=== PATIENT | male | born 1955 | race African-American/Black ===

== ENCOUNTER 2016-05-09 07:24 | Inpatient (IN) | payer MEDICAID ==
[2016-05-09] MEDS ORDERED: IPRATROPIUM/ALBUTEROL 3 ML DEYVIAL ONE (07:29)
[2016-05-09] MEDS ORDERED: IPRATROPIUM/ALBUTEROL 3 ML DEYVIAL IH ONE (07:33)
--- NOTE | 2016-05-09 07:46 | CPEKG ---
Heart Rate: 106 RR Interval: 566 P-R Interval: 144 QRSD Interval: 86 QT Interval: 348 QTC Interval: 463 P Lincoln: 32 QRS Lincoln: -68 T Wave Lincoln: -83 EKG Severity - ABNORMAL ECG - EKG Impression: SINUS TACHYCARDIA EKG Impression: LEFT ANTERIOR FASCICULAR BLOCK EKG Impression: ANTERIOR INFARCT, AGE INDETERMINATE EKG Impression: ABNORMAL T, CONSIDER ISCHEMIA, INFERIOR LEADS Electronically Signed By: Trini Burgess 09-May-2016 07:51:08
--- NOTE | 2016-05-09 07:54 | EDPHY ---
H & P Stated Complaint: Flu like s/sx, Hypoxia Time Seen by Provider: 05/09/16 07:28 HPI/ROS: CHIEF COMPLAINT: Cough and short of breath HISTORY OF PRESENT ILLNESS: This is a 60-year-old male with a history of hypertension who comes to the emergency room by ambulance from the homeless snf. He is not taking any medications for his hypertension. He has not had an influenza vaccination. He presents with diffuse weakness, productive cough, feeling short of breath, and generalized malaise. He reports right- sided chest pain. He has not been aware of fever. He is a daily smoker. He has not had any left-sided chest pain or pressure. He has no family history of coronary artery disease. REVIEW OF SYSTEMS: A ten point review of systems was performed and is negative with the exception of the items mentioned in the HPI. Source: Patient, EMS Exam Limitations: No limitations - Personal History Current Tetanus/Diphtheria Vaccine: Yes - Medical/Surgical History Hx Asthma: No Hx Chronic Respiratory Disease: No Hx Diabetes: No Hx Cardiac Disease: No Hx Renal Disease: No Hx Cirrhosis: No Hx Alcoholism: No Hx HIV/AIDS: No Hx Splenectomy or Spleen Trauma: No Other PMH: HTN, Rt TKA, Lt patella surgery - Social History Smoking Status: Current every day smoker Alcohol Use: None Drug Use: None, Marijuana Additional Social History: He sting homeless snf. He smokes 1 pack of cigarettes daily. He does not use alcohol or illicit drugs. - Physical Exam Exam: General Appearance: Alert. Vital signs reviewed. Blood pressure 116/59, heart rate 109, temperature 37, respiratory rate 20, and pulse ox 83% on room air. Eyes: Pupils equal and round, no conjunctival injection, no discharge. Anicteric. ENT, Mouth: Mucous membranes are moist, no oropharyngeal erythema or edema. Neck: No lymphadenopathy, supple. Trachea midline. Respiratory: Bilateral wheezes, rhonchi on the right. Cardiovascular: Tachycardic,; no murmur, rub, or gallop. Gastrointestinal: Abdomen is soft and nontender, no masses or organomegaly, bowel sounds normal. Skin: Warm and dry, no rashes on exposed skin, normal color. Back: Nontender to palpation over the thoracolumbar spine. No CVAT. Extremities: No lower extremity edema, no calf tenderness or swelling. Neurological: Alert and oriented. Moving all four extremities easily and equally. Facial expressions symmetric. Tongue midline. Psychiatric: Normal affect. No agitation or anxiety. Constitutional: Initial Vital Signs Temperature (C) 37 C 05/09/16 07:24 Heart Rate 109 H 05/09/16 07:24 Respiratory Rate 20 05/09/16 07:24 Blood Pressure 116/59 L 05/09/16 07:24 O2 Sat (%) 83 L 05/09/16 07:24 O2 Delivery Mode Non-Rebreather Mask O2 (L/minute) 15 Allergies/Adverse Reactions: No Known Allergies Allergy (Unverified 05/09/16 07:29) Home Medications: Medication Instructions Recorded Hydrochlorothiazide [HCTZ (*)] 25 mg PO DAILY 05/09/16 Medical Decision Making ED Course/Re-evaluation: 60-year-old homeless gentleman with a history of tobacco abuse and presumed COPD who presents with productive cough and hypoxia. His pulse ox was 83% on arrival. He has required face mask oxygen at 15 L to maintain oxygenation in the low to mid 90%. He has remained awake and alert during his stay in the emergency department. EKG showed ST elevation in 2 contiguous leads (V2 and V3) with reciprocal changes. He reported right-sided chest pain. This prompted a cardiac alert. However, the overall impression was of pulmonary infection. When his chest x- ray was obtained and showed a multi lobar pneumonia. An echocardiogram was done in the emergency department and he was seen by the credit and collections analyst ready mix truck driver. It was felt that further cardiac intervention was not warranted. Two-view chest x-ray shows multi lobar pneumonia on the right with the most significant infiltrate in the right upper lobe. He was given ceftriaxone and azithromycin in the emergency department. Blood and sputum cultures were obtained. Influenza testing is negative. On arrival he met criteria for sepsis. Initial lactate was 3.1, meeting criteria for severe sepsis. A repeat lactate was performed and was trending downward to 2.8. He received 3 L of normal saline in the emergency department. He does not meet criteria for septic shock. He may require different antibiotic coverage. He is being tested by the admitting hospitalist service for atypical pneumonia. Differential Diagnosis: I considered a differential diagnosis including but not limited to pulmonary infectious process, COPD, asthma, pulmonary embolus and congestive heart failure. - Data Points Laboratory Results: Laboratory Results 05/09/16 07:53 05/09/16 07:53 05/09/16 05/09/16 07:53 07:50 WBC 2.46 L 10^3/uL (3.80-9.50) RBC 4.87 10^6/uL (4.40-6.38) Hgb 15.3 g/dL (13.7-17.5) Hct 45.8 % (40.0-51.0) MCV 94.0 fL (81.5-99.8) MCH 31.4 pg (27.9-34.1) MCHC 33.4 g/dL (32.4-36.7) RDW 13.9 % (11.5-15.2) Plt Count 265 10^3/uL (150-400) MPV 9.3 fL (8.7-11.7) Neut % (Auto) 78.8 H % (39.3-74.2) Lymph % (Auto) 16.3 % (15.0-45.0) [place] % (Auto) 4.1 L % (4.5-13.0) Eos % (Auto) 0.0 L % (0.6-7.6) Baso % (Auto) 0.8 % (0.3-1.7) Nucleat RBC Rel Count 0.0 % (0.0-0.2) Absolute Neuts (auto) 1.94 10^3/uL (1.70-6.50) Absolute Lymphs (auto) 0.40 L 10^3/uL (1.00-3.00) Absolute Monos (auto) 0.10 L 10^3/uL (0.30-0.80) Absolute Eos (auto) 0.00 L 10^3/uL (0.03-0.40) Absolute Basos (auto) 0.02 10^3/uL (0.02-0.10) Absolute Nucleated RBC 0.00 10^3/uL (0-0.01) Immature Gran % 0.0 % (0.0-1.1) Seg Neutrophils % 50 % Band Neutrophils % 31 % Lymphocytes % 14 % Monocytes % 1 % Metamyelocytes % 4 % Immature Gran # 0.00 10^3/uL (0.00-0.10) Absolute Seg Neuts 1.23 L 10^/uL (1.70-6.50) Absolute Band Neuts 0.76 H 10^3/uL (0.00-0.70) Absolute Lymphocytes 0.34 L 10^3/uL (1.00-3.00) Absolute Monocytes 0.02 L 10^3/uL (0.30-0.80) Absolute Metamyelocyte 0.10 H 10^3/mL (0.00-0.00) RBC/WBC/PLT Morphology NORMAL (NORMAL) Platelet Estimate ADEQUATE (ADEQ) VBG Lactic Acid 3.1 H mmol/L (0.7-2.1) Sodium 142 mEq/L (134-144) Potassium 4.0 mEq/L (3.5-5.2) Chloride 110 mEq/L (97-110) Carbon Dioxide 22 mEq/l (22-31) Anion Gap 10 mEq/L (8-16) BUN 17 mg/dL (7-23) Creatinine 0.8 mg/dL (0.7-1.3) Estimated GFR > 60 Glucose 106 H mg/dL (70-100) Calcium 8.7 mg/dL (8.5-10.4) Total Bilirubin 1.1 mg/dL (0.1-1.4) Troponin I < 0.012 ng/mL (0-0.034) Influenza A & B (PCR) NEGATIVE FOR FLU (NEGATIVE) Medications Given: Discontinued Medications Albuterol/Ipratropium (Duoneb) 3 ml IH EDNOW ONE Stop: 05/09/16 07:34 Last Admin: 05/09/16 07:33 Dose: 3 ml Aspirin (Aspirin) 324 mg PO EDNOW ONE Stop: 05/09/16 08:05 Last Admin: 05/09/16 07:58 Dose: 324 mg Sodium Chloride (Ns) 1,000 mls @ 0 mls/hr IV EDNOW ONE PRN Reason: Wide Open Stop: 05/09/16 08:05 Last Admin: 05/09/16 07:55 Dose: 1,000 mls Azithromycin 500 mg/ Dextrose 255 mls @ 255 mls/hr IV EDNOW ONE PRN Reason: Protocol Stop: 05/09/16 09:06 Last Admin: 05/09/16 09:10 Dose: 255 mls Ceftriaxone Sodium/Dextrose (Rocephin 1 Gm (Premix)) 50 mls @ 100 mls/hr IV EDNOW ONE PRN Reason: Protocol Stop: 05/09/16 08:36 Last Admin: 05/09/16 08:20 Dose: 50 mls Sodium Chloride (Ns) 1,000 mls @ 0 mls/hr IV ONCE ONE PRN Reason: Wide Open Stop: 05/09/16 08:08 Last Admin: 05/09/16 08:20 Dose: 1,000 mls Sodium Chloride (Ns *For Sepsis Order Set Only*) 1,769 ml IV EDNOW ONE Stop: 05/09/16 08:30 Last Admin: 05/09/16 09:12 Dose: Not Given Departure - Departure Disposition: [facility] Acute Clinical Impression: Pneumonia Qualifiers: Qualifier Code: (J18.1) Lobar pneumonia, unspecified organism Sepsis Qualifiers: Qualifier Code: (A41.9) Sepsis, unspecified organism Condition: Fair
[2016-05-09] MEDS ORDERED: ASPIRIN 81 MG CHEWABLE TAB ONE (07:56)
[2016-05-09] MEDS ORDERED: LIDOCAINE 1% 30 ML SDV ONE (08:00)
[2016-05-09] MEDS ORDERED: MIDAZOLAM 2 MG/2 ML VIAL ONE (08:01)
[2016-05-09] MEDS ORDERED: VERAPAMIL 5 MG/2 ML VIAL ONE (08:01)
[2016-05-09] MEDS ORDERED: fentaNYL 100 MCG/2 ML INJ ONE (08:01)
[2016-05-09] MEDS ORDERED: HEPARIN 10,000 UNIT/10 ML MDV ONE (08:01)
[2016-05-09] MEDS ORDERED: IOPAMIDOL (ISOVUE-370) 150 ML BTL IV ONE (08:02)
[2016-05-09] MEDS ORDERED: ASPIRIN 81 MG CHEWABLE TAB PO ONE (08:04)
[2016-05-09] MEDS ORDERED: NS 1,000 ML IV ONE ×2 (08:04→08:07)
[2016-05-09] MEDS ORDERED: NITROGLYCERIN 1,500 MCG/15 ML VIAL MISC ONE (08:06)
[2016-05-09] MEDS ORDERED: AZITHROMYCIN IV 500 MG in D5W 250 ML IV ONE (08:07)
[2016-05-09 08:13] LABS: ADD DIFF? NO; ADD MORPH? NO; ADD SCAN? YES; ATYPICAL LYMPHOCYTE FLAG 0 (0-99); FRAGMENT RBC FLAG 20 (0-99); HEMATOCRIT 45.8 % (40.0-51.0); HEMOGLOBIN 15.3 g/dL (13.7-17.5); LIPEMIA HEMOLYSIS FLAG 80 (0-99); MEAN CELL HEMOGLOBIN 31.4 pg (27.9-34.1); MEAN CELL HEMOGLOBIN CONCENTR. 33.4 g/dL (32.4-36.7); MEAN PLATELET VOLUME 9.3 fL (8.7-11.7); PLATELET CLUMPS FLAG 0 (0-99); PLATELET COUNT 265 10^3/uL (150-400); RED BLOOD CELL COUNT 4.87 10^6/uL (4.40-6.38); RED CELL DISTRIBUTION WIDTH 13.9 % (11.5-15.2)
[2016-05-09 08:19] LABS: LEFT SHIFT FLG 300 (0-99)
[2016-05-09 08:25] LABS: ANION GAP 10 mEq/L (8-16); BILIRUBIN,TOTAL 1.1 mg/dL (0.1-1.4); CALCIUM 8.7 mg/dL (8.5-10.4); CARBON DIOXIDE 22 mEq/l (22-31); CHLORIDE 110 mEq/L (97-110); CREATININE 0.8 mg/dL (0.7-1.3); GLOMERULAR FILTRATION RATE > 60; GLUCOSE 106 mg/dL (70-100); SODIUM 142 mEq/L (134-144)
[2016-05-09] MEDS ORDERED: NS 1,000 ML BAG *FOR SEPSIS ORDER SET ONLY IV ONE (08:29)
[2016-05-09 08:36] LABS: TROPONIN I < 0.012 ng/mL (0-0.034)
[2016-05-09 08:48] LABS: SCAN POSITIVE
[2016-05-09 08:53] LABS: PLATELET ESTIMATE ADEQUATE (ADEQ)
--- NOTE | 2016-05-09 08:57 | DX ---
Portable AP Upright Chest May 09, 2016 7:57 a.m. Clinical History: 60-year-old homeless male with tobacco use history, in the ED with shortness of darian ath. Comparison Study: None. Findings: Oxygen tubing is in place. There is dense alveolar consolidation noted above the right sangeeta r fissure involving the right upper lobe; however, there are also areas of alveolar consolidation in the right and left medial lower lung zones, features most compatible with multilobar pneumonia. Under lying neoplasm cannot be excluded, and follow up imaging after appropriate antibiotic therapy is arianna mmended to assure resolution. The cardiac silhouette is normal in size. There is some mild tortuosity of the aorta with atherosclerotic calcification of the aortic knob. There is no pleural effusion or pneumothorax. There are some degenerative features associated with the shoulders, right greater than left. I discussed the above findings with Dr. Trini Burgess at 8:40 a.m. on May 09, 2016. Impression: Multilobar pneumonia, most pronounced in the right upper lobe and to lesser degrees at th e medial lung bases. Clinical correlation and follow up are suggested.
[2016-05-09 09:02] LABS: LACGHOST ORDER
--- NOTE | 2016-05-09 10:46 | ECHO ---
[id number] + + [address] : : [place] [address] : : [phone] + + Adult Echocardiographic Report + --+ :Name: Aneta SWEENEY Date: 05/09/2016 08:37 AM : : Hospital Admission Number: [id number] Location: ER: :: 1955 Gender: Male : :Age: 60 yrs Race: BAA : :Reason For Study: Eval LV Fx : :History: Cardiac Alert : + --+ MMode/2D Measurements & Calculations IVSd: 1.3 cm LVIDd: 4.8 cm FS: 31.6 % Ao root diam: 3.4 cm LVPWd: 1.4 cm LVIDs: 3.3 cm EDV(Teich): 106.1 ml ACS: 1.5 cm ESV(Teich): 43.0 ml EF(Teich): 59.5 % Normal Measurement Values: + + :LVIDd (3.5-5.7cm) IVSd (0.6-1.1cm) LVPWd (0.6-1.1cm) Aortic Root (2.0-3.7cm)Left Atrium (1.5-4.0cm): :LV Vol(d) (76-115ml) LV Vol(s) (29-48ml) Ejec Fraction (50-65%)PV Martin (0.6- 1.2m/s) TV Martin (0.4-1.0m/s) : :MV E Martin (0.8-1.0m/s)MV A Martin (0.3-1.0m/s)LVOT Martin (0.7-1.2m/s) Asc Ao Martin ( 0.9-1.8m/s) : + + Doppler Measurements & Calculations MV E max martin: Ao V2 max: LV V1 max: PA V2 max: 81.4 cm/sec 135.7 cm/sec 90.3 cm/sec 126.2 cm/sec MV A max martin: Ao max PG: LV V1 max PG: PA max P.7 cm/sec 7.4 mmHg 3.3 mmHg 6.4 mmHg MV E/A: 0.84 TR max martin: 357.0 cm/sec TR max P.0 mmHg RAP systole: 5.0 mmHg RVSP(TR): 56.0 mmHg Left Ventricle The left ventricle is normal in size. There is moderate concentric left ventricular hypertrophy. The left ventricular ejection fraction is normal. Ejection Fraction = 60%. No regional wall motion abnormalities noted. Right Ventricle The right ventricle is normal in size and function. Atria The left atrial size is normal. Right atrial size is normal. Mitral Valve The mitral valve is normal in structure and function. There is no evidence of mitral valve prolapse. There is no mitral valve stenosis. There is mild mitral regurgitation. Tricuspid Valve There is mild tricuspid regurgitation. Right ventricular systolic pressure is 56mmHg. There is Doppler evidence for moderate pulmonary hypertension. Aortic Valve The aortic valve is trileaflet. The aortic valve opens well. There is no aortic stenosis. Trace aortic regurgitation. Pulmonic Valve The pulmonic valve is normal in structure and function. There is no pulmonic valvular regurgitation. Great Vessels The aortic root is normal size. Pericardium/Pleural There is no pericardial effusion. Conclusion A complete two-dimensional transthoracic echocardiogram was performed (2D, M-mode, Doppler and color flow Doppler). The left ventricular ejection fraction is normal. Ejection Fraction = 60%. No regional wall motion abnormalities noted. The mitral valve is normal in structure and function. There is mild mitral regurgitation. There is mild tricuspid regurgitation. Right ventricular systolic pressure is 56mmHg. There is Doppler evidence for moderate pulmonary hypertension. The aortic valve is trileaflet. The aortic valve opens well. Trace aortic regurgitation. There is no pericardial effusion. There is moderate concentric left ventricular hypertrophy. Final Reading Physician: Donavan Pedersen signed on 05/09/2016 10:45 AM Ordering Physician: JYOTI CARY Performed By: Abdifatah Tobias, CS
[2016-05-09 10:49] LABS: BASE EXCESS -6.2 mEq/L (-2.5-2.5); BICARBONATE 18 mEq/L (22-26); MEASURED OXYGEN SATURATION 90 % (92-95); PCO2 35 mmHg (34-38); PO2 62 mmHg (65-75); TCO2 19 mEq/L (23-27)
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
[2016-05-09 12:03] LABS: COLOR AMBER; LEUKOCYTE ESTERASE,URINE NEGATIVE (NEGATIVE); NITRITE,URINE NEGATIVE (NEGATIVE)
[2016-05-09 12:12] LABS: MUCUS TRACE /lpf (NONE-1+)
[2016-05-09] MEDS ORDERED: ALBUTEROL 3 ML DEYVIAL IH PRN (13:06)
[2016-05-09] MEDS ORDERED: ACETAMINOPHEN 325 MG TAB PO PRN (13:06)
[2016-05-09] MEDS ORDERED: LORazepam 2 MG/ML INJ IVP PRN (13:06)
[2016-05-09] MEDS: ONDANSETRON DISINTEGRATING 4 MG TAB PO PRN (14:20)
[2016-05-09] MEDS: NS 1,000 ML IV SCH ×2 (14:24→21:23)
--- NOTE | 2016-05-09 14:38 | PDGENHP ---
History and Physical - Chief Complaint sob, cough - History of Present Illness 60 yo M with hx of HTN and homelessness admitted with sob and cough that he says started today. He also had generalized weakness/n/v. He is coughing up thick green sputum. He does not think he has had fever or chills. He has not had similar issues in the past. He has some slight right sided chest pain when he moves mostly. No swelling or pain in his legs. No sick contacts that he is aware of but he lives in a alf so unsure. History Information - Allergies/Home Medication List Allergies/Adverse Reactions: No Known Allergies Allergy (Unverified 05/09/16 07:29) Home Medications: Hydrochlorothiazide [HCTZ (*)] 25 mg PO DAILY 05/09/16 [Last Taken 2 Weeks Ago] I have personally reviewed and updated: family history, medical history, social history, surgical history - Past Medical History hypertension Additional medical history: scoliosis. chronic back pain and neuropathic pain - Surgical History Additional surgical history: TKA. tib fib surgery - Family History Positive for: non-pertinent - Social History Smoking Status: Current every day smoker (40 + pack year smoking hx) Alcohol Use: Rarely Drug Use: Marijuana Additional social history: homeless, staying in alf, has been in [place] 22 months Review of Systems ROS: 10pt was reviewed & negative except for what was stated in HPI & below Physical Exam Temp Pulse Resp BP Pulse Ox 37.2 C 105 H 22 H 106/68 96 05/09/16 10:51 05/09/16 10:51 05/09/16 10:51 05/09/16 10:51 05/09/16 10:51 O2 (L/minute) 15 Constitutional: no apparent distress, appears nourished Eyes: PERRL Ears, Nose, Mouth, Throat: moist mucous membranes, hearing normal Cardiovascular: regular rate and rhythym, no murmur, rub, or gallop, No edema Respiratory: expiratory wheeze, inspiratory crackles, bronchial breath sounds Gastrointestinal: normoactive bowel sounds, soft, non-tender abdomen Genitourinary: no bladder fullness Skin: warm, normal color Musculoskeletal: full muscle strength, no muscle tenderness Neurologic: AAOx3, sensation intact bilaterally Psychiatric: interacting appropriately, not anxious, not encephalopathic Lab Data & Imaging Review 05/09/16 07:53 05/09/16 07:53 WBC 2.46 10^3/uL (3.80-9.50) L 05/09/16 07:53 RBC 4.87 10^6/uL (4.40-6.38) 05/09/16 07:53 Hgb 15.3 g/dL (13.7-17.5) 05/09/16 07:53 Hct 45.8 % (40.0-51.0) 05/09/16 07:53 MCV 94.0 fL (81.5-99.8) 05/09/16 07:53 MCH 31.4 pg (27.9-34.1) 05/09/16 07:53 MCHC 33.4 g/dL (32.4-36.7) 05/09/16 07:53 RDW 13.9 % (11.5-15.2) 05/09/16 07:53 Plt Count 265 10^3/uL (150-400) 05/09/16 07:53 MPV 9.3 fL (8.7-11.7) 05/09/16 07:53 Neut % (Auto) 78.8 % (39.3-74.2) H 05/09/16 07:53 Lymph % (Auto) 16.3 % (15.0-45.0) 05/09/16 07:53 Warren % (Auto) 4.1 % (4.5-13.0) L 05/09/16 07:53 Eos % (Auto) 0.0 % (0.6-7.6) L 05/09/16 07:53 Baso % (Auto) 0.8 % (0.3-1.7) 05/09/16 07:53 Nucleat RBC Rel Count 0.0 % (0.0-0.2) 05/09/16 07:53 Absolute Neuts (auto) 1.94 10^3/uL (1.70-6.50) 05/09/16 07:53 Absolute Lymphs (auto) 0.40 10^3/uL (1.00-3.00) L 05/09/16 07:53 Absolute Monos (auto) 0.10 10^3/uL (0.30-0.80) L 05/09/16 07:53 Absolute Eos (auto) 0.00 10^3/uL (0.03-0.40) L 05/09/16 07:53 Absolute Basos (auto) 0.02 10^3/uL (0.02-0.10) 05/09/16 07:53 Absolute Nucleated RBC 0.00 10^3/uL (0-0.01) 05/09/16 07:53 Immature Gran % 0.0 % (0.0-1.1) 05/09/16 07:53 Seg Neutrophils % 50 % 05/09/16 07:53 Band Neutrophils % 31 % 05/09/16 07:53 Lymphocytes % 14 % 05/09/16 07:53 Monocytes % 1 % 05/09/16 07:53 Metamyelocytes % 4 % 05/09/16 07:53 Immature Gran # 0.00 10^3/uL (0.00-0.10) 05/09/16 07:53 Absolute Seg Neuts 1.23 10^/uL (1.70-6.50) L 05/09/16 07:53 Absolute Band Neuts 0.76 10^3/uL (0.00-0.70) H 05/09/16 07:53 Absolute Lymphocytes 0.34 10^3/uL (1.00-3.00) L 05/09/16 07:53 Absolute Monocytes 0.02 10^3/uL (0.30-0.80) L 05/09/16 07:53 Absolute Metamyelocyte 0.10 10^3/mL (0.00-0.00) H 05/09/16 07:53 RBC/WBC/PLT Morphology NORMAL (NORMAL) 05/09/16 07:53 Platelet Estimate ADEQUATE (ADEQ) 05/09/16 07:53 Puncture Site RIGHT RADIAL 05/09/16 10:37 Patient Temperature 37.0 DEGREES 05/09/16 10:37 pCO2 35 mmHg (34-38) 05/09/16 10:37 pO2 62 mmHg (65-75) L 05/09/16 10:37 Total CO2 19 mEq/L (23-27) L 05/09/16 10:37 ABG pH 7.34 (7.35-7.45) L 05/09/16 10:37 ABG O2 Saturation 90 % (92-95) L 05/09/16 10:37 ABG Base Excess -6.2 mEq/L (-2.5-2.5) L 05/09/16 10:37 VBG Lactic Acid 2.4 mmol/L (0.7-2.1) H 05/09/16 12:10 Total O2 Concentration 12.0 LITERS 05/09/16 10:37 Sodium 142 mEq/L (134-144) 05/09/16 07:53 Potassium 4.0 mEq/L (3.5-5.2) 05/09/16 07:53 Chloride 110 mEq/L (97-110) 05/09/16 07:53 Carbon Dioxide 22 mEq/l (22-31) 05/09/16 07:53 Bicarbonate 18 mEq/L (22-26) L 05/09/16 10:37 Anion Gap 10 mEq/L (8-16) 05/09/16 07:53 BUN 17 mg/dL (7-23) 05/09/16 07:53 Creatinine 0.8 mg/dL (0.7-1.3) 05/09/16 07:53 Estimated GFR > 60 05/09/16 07:53 Glucose 106 mg/dL (70-100) H 05/09/16 07:53 Calcium 8.7 mg/dL (8.5-10.4) 05/09/16 07:53 Total Bilirubin 1.1 mg/dL (0.1-1.4) 05/09/16 07:53 Troponin I < 0.012 ng/mL (0-0.034) 05/09/16 07:53 Urine Color BALDEMAR 05/09/16 11:40 Urine Appearance CLEAR 05/09/16 11:40 Urine pH 5.0 (5.0-7.5) 05/09/16 11:40 Ur Specific [place] 1.027 (1.002-1.030) 05/09/16 11:40 Urine Protein 2+ (NEGATIVE) H 05/09/16 11:40 Urine Ketones TRACE (NEGATIVE) H 05/09/16 11:40 Urine Blood NEGATIVE (NEGATIVE) 05/09/16 11:40 Urine Nitrate NEGATIVE (NEGATIVE) 05/09/16 11:40 Urine Bilirubin POSITIVE (NEGATIVE) H 05/09/16 11:40 Urine Urobilinogen NEGATIVE EU (0.2-1.0) 05/09/16 11:40 Ur Leukocyte Esterase NEGATIVE (NEGATIVE) 05/09/16 11:40 Urine RBC 3-5 /hpf (0-3) H 05/09/16 11:40 Urine WBC 1-3 /hpf (0-3) 05/09/16 11:40 Ur Epithelial Cells TRACE /lpf (NONE-1+) 05/09/16 11:40 Urine Mucus TRACE /lpf (NONE-1+) 05/09/16 11:40 Urine Glucose NEGATIVE (NEGATIVE) 05/09/16 11:40 Influenza A & B (PCR) NEGATIVE FOR FLU (NEGATIVE) 05/09/16 07:50 Visualized and Interpreted Chest x-ray results: Yes Chest X-Ray results: infiltrate (multilobar--right upper and middle lobe pna) Visualized and Interpreted EKG results: Yes EKG additional interpertation: LAFB, ST depression, twi inferior leads Assessment & Plan Assessment: 60 yo homeless man presenting with multilobar pna and acute resp failure # multilobar pna: patient resides in alf but otherwise no rf for resistant organisms, started on ctx/azithro for now. Blood, sputum cxs and legionella/ strep pneumo urinary ags ordered. # acute hypoxic respiratory failure: in the setting of above, 83% on RA on arrival. Tx as above, nebs, IS, ambulation # severe sepsis: with neutropenia, tachycardia and source of infection as above. Lactic acid elevated but downtrending. HD stable. # copd with acute exacerbation: undiagnosed but given 40+ active smoking history and exam clearly contributing, continue scheduled nebs, does have reasonable air mvmt so will hold off on steroids for now # htn: holding hctz given sepsis, monitoring bp # chest pain: with ecg abnormalities as well, cardiology consulted, echo w/o wall motion abnormality. Pain right sided and likely 2/2 pna. Trending trops, monitor on tele # chronic back pain: prn oxy, pt/ot # dispo: IP status, high risk presenting issues Patient new to my care. Old records reviewed and summarized as above. Care plan reviewed with ER doctor including plans for abx.
[2016-05-09] MEDS: PROMETHAZINE HCL 25 MG/ML VIAL IVP PRN (15:15)
[2016-05-09] MEDS: oxyCODONE IR 5 MG TAB PO PRN (16:45)
[2016-05-09] MEDS: IPRATROPIUM/ALBUTEROL 3 ML DEYVIAL IH SCH ×2 (16:45→22:33)
[2016-05-09] MEDS: VANCOMYCIN 750 MG in D5W 150 ML IV SCH (21:23)
[2016-05-10] MEDS: LORazepam 0.5 MG TAB PO PRN (01:18)
[2016-05-10 05:46] LABS: % IMMATURE GRANULYOCYTES 1.2 % (0.0-1.1); ABSOLUTE IMMATURE GRANULOCYTES 0.14 10^3/uL (0.00-0.10); ADD DIFF? NO; ADD MORPH? NO; ADD SCAN? YES; FRAGMENT RBC FLAG 0 (0-99); HEMATOCRIT 41.6 % (40.0-51.0); HEMOGLOBIN 13.5 g/dL (13.7-17.5); LIPEMIA HEMOLYSIS FLAG 80 (0-99); MEAN CELL HEMOGLOBIN CONCENTR. 32.5 g/dL (32.4-36.7); MEAN CELL VOLUME 95.4 fL (81.5-99.8); MEAN PLATELET VOLUME 9.8 fL (8.7-11.7); PLATELET CLUMPS FLAG 0 (0-99); PLATELET COUNT 226 10^3/uL (150-400); RED BLOOD CELL COUNT 4.36 10^6/uL (4.40-6.38); RED CELL DISTRIBUTION WIDTH 14.1 % (11.5-15.2)
[2016-05-10 05:52] LABS: ATYPICAL LYMPHOCYTE FLAG 120 (0-99); LEFT SHIFT FLG 300 (0-99)
[2016-05-10] MEDS: IPRATROPIUM/ALBUTEROL 3 ML DEYVIAL IH SCH ×4 (05:54→22:14)
[2016-05-10 06:05] LABS: ANION GAP 7 mEq/L (8-16); CALCIUM 7.7 mg/dL (8.5-10.4); CARBON DIOXIDE 22 mEq/l (22-31); CHLORIDE 113 mEq/L (97-110); CREATININE 0.7 mg/dL (0.7-1.3); GLOMERULAR FILTRATION RATE > 60; GLUCOSE 58 mg/dL (70-100); POTASSIUM 4.5 mEq/L (3.5-5.2); SODIUM 142 mEq/L (134-144)
[2016-05-10 06:48] LABS: SCAN POSITIVE
[2016-05-10 06:58] LABS: PLATELET ESTIMATE ADEQUATE (ADEQ)
[2016-05-10] MEDS: VANCOMYCIN 750 MG in D5W 150 ML IV SCH (07:50)
[2016-05-10] MEDS: ENOXAPARIN 40 MG/0.4 ML SYR SC SCH (07:50)
[2016-05-10] MEDS: oxyCODONE IR 5 MG TAB PO PRN ×3 (08:01→19:52)
[2016-05-10] MEDS ORDERED: AZITHROMYCIN IV 500 MG in D5W 250 ML IV SCH (09:00)
--- NOTE | 2016-05-10 10:18 | HOSPPROG ---
Hospitalist Progress Note Assessment/Plan: Sepsis secondary to PNA and streptococcal bacteremia - Streptococcal pneumonia in 2/2 BCx's. Currently on 5 LPM O2 by OR. -DC Vanco -Cont Ceftriaxone / Azithromycin -Repeat BCx's 1-2 days -ID consulted -Will need f/u imaging in 4-6 weeks to ensure resolution Acute hypoxemic respiratory failure secondary to above - may have COPD contributing with 40+ pack yr tobacco hx. -cont scheduled nebs -steroids deferred at this time with no wheezing on exam -outpt PFT's once returned to baseline CAD - Based on stated h/o MT in 1992. EKG is abnormal with diffuse T wave inversions though trop neg x2 and pt is CP free at this time. Echo shows preserved LV function and no WMA. Appreciate Cardiology consult. -Will start ASA 81 mg -check lipid status, consider addition of statin -consider addition of BB when BP can tolerate -Plan for outpt risk stratification per cards Hypertension - Normotensive now. Holding HCTZ. Homelessness - Case management consult. DVT PPLX - Lovenox Full code Dispo - cont inpt, transfer to med surg Subjective: Pt feels "crummy". He remains SOB, weak, achey. Denies CP. No fevers. Taking adequate PO. UOP decent. Objective: Vital Signs Temp Pulse Resp BP Pulse Ox 36.7 C 92 25 H 138/79 H 5 L 05/10/16 08:06 05/10/16 08:06 05/10/16 08:06 05/10/16 08:06 05/10/16 08:06 Microbiology 05/09/16 10:05 - Final Sputum, Expectorated Laboratory Results 05/10/16 05:35 05/10/16 05:35 05/09/16 05/10/16 05/11/16 05:59 05:59 05:59 Intake Total 4805 Output Total 875 Balance 3930 - Physical Exam Constitutional: no apparent distress Eyes: PERRL Ears, Nose, Mouth, Throat: moist mucous membranes Cardiovascular: regular rate and rhythym Respiratory: no respiratory distress, reduced air movement, inspiratory crackles Gastrointestinal: normoactive bowel sounds, soft, non-tender abdomen Skin: warm Neurologic: AAOx3 Psychiatric: interacting appropriately ICD10 Worksheet Patient Problems: Problems Problem Status Diagnosed Pneumonia Acute Sepsis Acute
[2016-05-10] MEDS: guaiFENesin 600 MG TAB.ER PO SCH ×2 (11:56→19:34)
[2016-05-10] MEDS ORDERED: ALBUTEROL 3 ML DEYVIAL IH SCH (12:00)
[2016-05-10] MEDS: NS 1,000 ML IV SCH (12:54)
--- NOTE | 2016-05-10 13:00 | DX ---
Portable chest x-ray 1058 hours History: Followup pneumonia. Findings: Comparison to May 09, 2016. There is dense consolidation once again seen inferior aspect right upper lobe as well as patchy areas of consolidation/pneumonia at both lung bases similar to the prior study. There is decreased inspira tion. There are no new areas of consolidation or significant effusion. Heart size remains borderline enlarged. Pulmonary vasculature is not engorged. Moderate atherosclerotic calcification is present at the aortic arch level. Osseous structures are unchanged. Moderate degenerative joint disease is note d about the right glenohumeral joint. Impression: 1. Stable bilateral consolidation/pneumonia most prominent inferior aspect right upper lobe. 2. Decreased inspiration.
--- NOTE | 2016-05-10 13:19 | SOAPPROG ---
SOAP Progress Note Assessment/Plan: Asse 1. Pneumonia 2. Respiratory failure 3. COPD 4. Greater than 100 pack-year smoking history 5. Coronary artery disease to lined up for sick dyslipidemia 7. Hypertension. The patient is very ill and is improving significantly. His blood cultures positive. He is taking his antibiotics and feels like he is stable. He feels quite awful. His troponins are negative. There is nothing to suggest acute coronary syndrome. He is a breath of the active gentleman normally who has significant cardiac risk factors and we will follow him once he leaves the hospital and we will arrange to do a stress test. He will need long-term follow-up. He is new to the area I will be happy to follow him in my clinic. He has very significant coronary artery disease. His EKG is markedly abnormal. However his LV systolic function is preserved. Right now we do not have to do a think further about coronary artery disease S things stand today. If he deteriorates we will move on from there quickly. His pneumonia is being treated. It is certainly wonderful it is doing his will see he is doing with his sepsis. I think he will have a slow recovery. I have answered all his questions. We will follow him with you. There is nothing right now to suggest significant diastolic heart failure. his cardiovascular rhythms are stable. His prognosis however remains guarded given his coronary disease, significant risk factors for coronary disease and his pulmonary compromise at baseline and his significant infection. Plan: 05/10/16 13:15 Subjective: He is feeling very ill today. He has no fever He has chills. He has no chest tightness or jaw pain. No pleuritic chest pain. He is short of breath. He feels profoundly weak. He has no strength. He is taking his medications. He has no nausea or vomiting. No lightheadedness or dizziness No neurologic focal symptoms. He can lie flat in bed without any complaints. Objective: Vital Signs Temp Pulse Resp BP Pulse Ox 36.9 C 92 20 121/72 H 97 05/10/16 11:57 05/10/16 11:57 05/10/16 11:57 05/10/16 11:57 05/10/16 11:57 Microbiology 05/09/16 10:05 - Final Sputum, Expectorated Laboratory Results 05/10/16 05:35 05/10/16 05:35 05/09/16 05/10/16 05/11/16 05:59 05:59 05:59 Intake Total 4805 Output Total 875 Balance 3930 Laboratory Tests 05/09/16 05/09/16 05/09/16 07:53 10:37 11:40 Hct 45.8 Neut % (Auto) 78.8 H Lymph % (Auto) 16.3 Travis % (Auto) 4.1 L Eos % (Auto) 0.0 L Bicarbonate 18 L Glucose 106 H Troponin I < 0.012 Urine Bilirubin POSITIVE H 05/09/16 05/09/16 05/10/16 15:10 20:45 05:35 Hct 41.6 Neut % (Auto) 87.7 H Lymph % (Auto) 6.2 L Travis % (Auto) 4.0 L Eos % (Auto) 0.1 L Bicarbonate Glucose 58 L Troponin I < 0.012 < 0.012 Urine Bilirubin Physical Exam - Physical Exam General Appearance: mild distress Respiratory: decreased breath sounds, rhonchi, prolonged expiration, No wheezing Cardiac/Chest: regular rate, rhythm, systolic murmur, No edema Abdomen: normal bowel sounds, non-tender, soft, No organomegaly Skin: normal color, warm/dry Extremities: non-tender, No swelling Neuro/Psych: alert, normal mood/affect, No disoriented to person, No disoriented to place, No disoriented to time, No depressed affect ICD10 Worksheet Patient Problems: Problems Problem Status Diagnosed Pneumonia Acute Sepsis Acute
[2016-05-10] MEDS: D5W 1/2 NS 1,000 ML IV SCH (18:15)
--- NOTE | 2016-05-10 19:18 | GCON ---
[f rep st] CONSULTATION INFECTIOUS DISEASES CONSULTATION DATE OF CONSULTATION: 05/10/2016 REFERRING PHYSICIAN: Jaimie Olson MD REASON FOR CONSULTATION: Sepsis associated with pneumococcal bacteremia. HISTORY OF PRESENT ILLNESS: Patient is a 60-year-old homeless male who smokes 1 pack per day, whom I am asked to see in consultation for sepsis due to pneumococcal bacteremia and pneumonia. The patien t describes developing weakness and severe cough, which was associated with posttussive emesis on the day of admission. He describes having some chills, but no rigors or fever. He subsequently began t o produce sputum, which was green in color. This later has become blood-tinged. He also developed r ight-sided pleuritic chest pain with radiation to the right shoulder. He describes having pneumonia many years ago and has had prior pneumococcal vaccination, although he is unclear when this was admin istered. Evaluation at [facility] revealed a white blood cell count at the time of adm ission of 2.5 with significant bandemia. His lactic acid was also elevated. Chest x-ray revealed d ense consolidation in the inferior aspect of the right upper lobe, in addition to patchy areas of con solidation at both lung bases. Blood cultures obtained at the time of admission are showing both set s with growth of Streptococcus pneumoniae. A sputum sample has shown a mixed gram-stain and mixed or al [place] on culture. Patient has been receiving treatment with vancomycin, ceftriaxone, and azithrom ycin. He feels clinically improved since admission. Flu testing by PCR was negative. Given the abo ve findings, I am now asked to assist in his ongoing management. PAST MEDICAL HISTORY: Hypertension, chronic back pain with radiculopathy. PAST SURGICAL HISTORY: Total knee arthroplasty on the right, history of patella removal on the left. CURRENT MEDICATIONS: Ceftriaxone 1 g IV daily, azithromycin 500 mg IV daily, albuterol nebs as neede d, DuoNeb q.i.d., aspirin 81 mg p.o. daily, Lovenox 40 mg subcu daily, Mucinex 1200 mg p.o. b.i.d. ALLERGIES: No known drug allergies. SOCIAL HISTORY: Patient smokes 1 pack per day. He denies alcohol or drug use. Denies any current H IV risk factors, but notes there may have been some previously in his past. He is currently homeless over last 2 months and staying at the custodial. He says he has an up to date TB card. FAMILY HISTORY: Diabetes mellitus. REVIEW OF SYSTEMS: Outside that noted in the HPI, the remainder of a 10 system review is unremarkabl e. PHYSICAL EXAMINATION: VITAL SIGNS: Temperature 37.3, heart rate 99, respiratory rate 23, blood press ure 123/66, oxygen saturation 100% on 5 L. GENERAL: Patient is a thin male, in no acute distress. He appears nontoxic. HEENT: There is no scleral icterus, conjunctival injection, or conjunctiva pet echiae. Oropharynx is clear without lesions. Mucous membranes are moist. Dentition is in poor repa ir. There is no tenderness over the frontal, maxillary, or mastoid area. There is no nasal discharg e. NECK: Supple without lymphadenopathy or palpable thyromegaly. CHEST: There are coarse crackles present in the right lower and mid lung garibay, as well as the left base. The respiratory effort is normal. CARDIOVASCULAR: Tachycardic without murmurs, gallops, or rubs. ABDOMEN: Soft, nontender, nondistended. There is no palpable organomegaly. Bowel sounds are present. MUSCULOSKELETAL: Ther e is no cyanosis, clubbing, or edema. Right knee shows no erythema, warmth, or effusion. SKIN: No rash is noted. There are no stigmata of endocarditis. The skin is warm and dry to touch. NEUROLOGI C: Patient is alert and interacts appropriately with examiner. Cranial nerves 2-[address] Sensation is grossly intact. LABORATORY DATA: White blood cell count at time of admission 2.5 with 50% neutrophils and 31% bands. White blood cell count today 11.7, hematocrit 41.6, platelets 226, neutrophils 34%, bands 39%. Ser um creatinine is 0.7. Venous lactate 1.2, Flu PCR is negative. Urine Legionella and Streptococcus p neumoniae antigens pending. Urinalysis shows 2+ protein with 3-5 red blood cells and 1-3 white blood cells. Blood cultures with 2 of 2 sets showing Streptococcus pneumoniae with susceptibility pending . Sputum with mixed oral [place]. IMAGING: Chest x-ray reviewed and interpreted by me, and outlined in the HPI. IMPRESSION: Sepsis, due to pneumococcal bacteremia and multilobar pneumonia: Patient has a signific ant smoking history and continues to smoke 1 pack per day, which is a risk factor for invasive pneumo coccal disease. He is currently receiving antibiotic therapy with ceftriaxone and azithromycin. Giv en the isolation of Streptococcus pneumoniae, will discontinue azithromycin and continue with ceftria xone monotherapy as this has a high likelihood of being efficacious with resistance rates to ceftriax one extremely low. Will check HIV antibody. Repeat blood cultures to assess for clearing of bactere olivia. RECOMMENDATIONS: 1. Continue ceftriaxone 1 g IV daily. 2. Discontinue azithromycin. 3. Check HIV antibody. 4. Repeat blood cultures in a.m. 5. Follow clinical response and pneumococcal susceptibilities as available. Thank you for this consultation. We will continue to follow patient with you. /[id number]/MODL
[2016-05-10] MEDS: ONDANSETRON DISINTEGRATING 4 MG TAB PO PRN (21:09)
[2016-05-10] MEDS: ZOLPIDEM TARTRATE 5 MG TAB PO PRN (22:54)
--- NOTE | 2016-05-11 04:09 | GCON ---
[f rep st] CONSULTATION PULMONARY CONSULTATION REASON FOR CONSULTATION: Multi lobar pneumococcal pneumonia. HISTORY: The patient is a 60-year-old gentleman who is homeless. He has been sick for several days with increasing cough and shortness of breath. He presented to the emergency department with increas ed weakness and chest pain. He has purulent mucus. Chest x-ray showed a dense right upper lobe pneu monia with some patchy infiltrates in the right lower lobe and on the left that were much less signif icant. Blood cultures are positive for gram-positive cocci, probably pneumococcus. White blood cell count on admission was 2.46. Today, it has gone up to 11,000. He was mildly acidemic on admission with a borderline elevated lactate at approximately 3. The patient is a long-time smoker, over a pac k a day for greater than 40 years. He was placed in the intensive care unit on step-down status. He is on azithromycin and ceftriaxone, as well as duo nebs 4 times daily. He is on pain medications, e noxaparin, guaifenesin, and p.r.n. medications. He has been seen by Cardiology. No acute coronary s yndrome is identified. DRUG ALLERGIES: None known. 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 Afsaneh ferro is on no oxygen, no inhalers. SOCIAL HISTORY: He was previously . Family live elsewhere. He denies having children or fam linda support system at this point in time. He does not drink alcohol or use drugs. Tobacco was as no elvie above. FAMILY HISTORY: Noncontributory/negative. REVIEW OF SYSTEMS: He feels poorly, wiped out, chest pain has improved. It has been pleuritic in na ture. He states he also has chronic back pain. He was to have an appointment this upcoming week at the Clinic. He is relatively new to the [place] area, from [place] by report. PHYSICAL EXAMINATION: GENERAL: Reveals a fairly thin gentleman in no acute distress. VITAL SIGNS: Blood pressure is 123/66, heart rate 100 with sinus rhythm on the monitor, respiratory rate is appro ximately 20, on 5 L saturations are 100%. He is currently afebrile and has been so since admission. HEENT: Remarkable for poor dentition. There is no lymphadenopathy or thyromegaly, no jugular venou s distention. CHEST: Reveals coarse breath sounds with bronchial changes and some rales on the righ t side. Breath sounds are diminished bilaterally. Expiratory phase is prolonged. There are some ex piratory wheezes. CARDIAC: Heart is tachycardic. There is a soft systolic murmur. There are no ga llops. P2 appears to be increased. ABDOMEN: Soft, nontender. Bowel sounds are present, but dimini shed. LEFT LOWER EXTREMITY: Remarkable for chronic arthritic changes of the left knee, some muscle wasting, and some left lower extremity edema with chronic skin changes. RIGHT LOWER EXTREMITY: Rela tively normal. NEUROLOGIC: Examination is nonfocal, intact. Cognition is appropriate. DATABASE: Chest x-ray is as outlined above. Followup chest x-ray done today is similar without sign ificant major change. White blood cell count 11,600, hematocrit 41. Platelets are normal. Arterial blood gas last night showed a pH of 7.34, pCO2 35, and a PO2 of 62 with a serum bicarbonate of 19 an d a positive base excess. Sodium is 142, potassium 4.5, chloride 109, CO2 22, BUN 18 with creatinine 0.7. Glucose is 82, calcium 7.7. Troponins are negative. Urinalysis on admission was negative. P CR for influenza was negative. Blood cultures are positive for strep pneumoniae. Sensitivities are pending. ASSESSMENT: 1. Multi lobar bacteremic pneumococcal pneumonia. This was initially associated with a low white bl ood cell count, which has now resolved. The patient is modestly hypoxemic, has some associated pleur isy, which is improving, and is doing acceptably at this point in time. Sensitivities are pending. Although he presents with several poor prognostic signs regarding pneumococcal pneumonia, he is doing well currently and hopefully this course will continue. 2. History of tobacco abuse with probable moderate chronic obstructive pulmonary disease. He is on bronchodilator therapy. There is no definite indication for steroids at this time. Further characte rization of his chronic obstructive pulmonary disease, if needed, can be done as an outpatient. 3. History of chronic pain related to his back and chronic changes of the left lower extremity. RECOMMENDATIONS: The patient will be kept in the intensive care unit for now on step-down status. I f he is doing well, he could possibly be moved to a medical-surgical bed elsewhere in the hospital to [place]. Antibiotics and bronchodilator therapy will be continued. Intravenous fluids will be given. Appropriate pain control will be maintained. Chest x-ray and laboratory will be followed. Further plans and recommendations will be made based on his progress over the next 12-24 hours. /[id number]/MODL
[2016-05-11 04:46] LABS: ANION GAP 9 mEq/L (8-16); CALCIUM 7.8 mg/dL (8.5-10.4); CARBON DIOXIDE 21 mEq/l (22-31); CHLORIDE 109 mEq/L (97-110); CHOLESTEROL 90 mg/dL (140-220); CREATININE 0.7 mg/dL (0.7-1.3); GLOMERULAR FILTRATION RATE > 60; GLUCOSE 122 mg/dL (70-100); HIGH DENSITY LIPOPROTEIN 29 mg/dL (40-65); LDL/HDL RATIO 1.45 RATIO (1.00-3.64); LOW DENSITY LIPOPROTEIN 42 mg/dL (80-100); NON-HIGH DENSITY LIPOPROTEIN 61 mg/dL (90-129); SODIUM 139 mEq/L (134-144); TRIGLYCERIDE 96 mg/dL (40-150); VERY LOW DENSITY LIPOPROTEINS 19 mg/dL (8-25)
[2016-05-11 05:31] LABS: ADD MORPH? NO; ADD SCAN? YES; ATYPICAL LYMPHOCYTE FLAG 0 (0-99); FRAGMENT RBC FLAG 0 (0-99); LIPEMIA HEMOLYSIS FLAG 80 (0-99); PLATELET COUNT 193 10^3/uL (150-400)
[2016-05-11 05:35] LABS: HEMATOCRIT 31.5 % (40.0-51.0); HEMOGLOBIN 10.4 g/dL (13.7-17.5); MEAN CELL HEMOGLOBIN 31.6 pg (27.9-34.1); MEAN CELL VOLUME 95.7 fL (81.5-99.8); MEAN PLATELET VOLUME 10.5 fL (8.7-11.7); PLATELET CLUMPS FLAG 0 (0-99); RED BLOOD CELL COUNT 3.29 10^6/uL (4.40-6.38); RED CELL DISTRIBUTION WIDTH 14.2 % (11.5-15.2)
[2016-05-11 05:36] LABS: LEFT SHIFT FLG 300 (0-99)
[2016-05-11 06:00] LABS: ADD DIFF? YES; SCAN POSITIVE
[2016-05-11 06:05] LABS: PLATELET ESTIMATE ADEQUATE (ADEQ); TOXIC GRANULATION PRESENT; TOXIC VACUOLIZATION PRESENT
[2016-05-11] MEDS: IPRATROPIUM/ALBUTEROL 3 ML DEYVIAL IH SCH ×4 (06:18→21:41)
[2016-05-11] MEDS: ONDANSETRON DISINTEGRATING 4 MG TAB PO PRN (06:50)
[2016-05-11] MEDS: guaiFENesin 600 MG TAB.ER PO SCH ×2 (08:08→19:31)
[2016-05-11] MEDS: ASPIRIN EC 81 MG TAB PO SCH (08:08)
[2016-05-11] MEDS: ENOXAPARIN 40 MG/0.4 ML SYR SC SCH (08:08)
--- NOTE | 2016-05-11 08:16 | DX ---
Single View of the Chest May 11, 2016 Clinical Indication: Follow up pneumonia. Comparison: October 08, 2016 Findings: Diffuse consolidation, worse in the right upper lobe, is stable to slightly worse compared to one day prior. There is some increased blunting of the costophrenic angle on the right. The left c ostophrenic angle remains clear. The aortic arch calcification is again present. Heart size is normal . Degenerative changes of the right shoulder are again noted. Impression: Minimally increase in the bilateral pneumonias worse in the right upper lobe. Mild blunt ing of the costophrenic angle suggests a small effusion on today's examination.
[2016-05-11] MEDS: PROMETHAZINE HCL 25 MG/ML VIAL IVP PRN (08:38)
[2016-05-11] MEDS: oxyCODONE IR 5 MG TAB PO PRN ×2 (08:38→17:12)
--- NOTE | 2016-05-11 10:43 | HOSPPROG ---
Hospitalist Progress Note Assessment/Plan: DIAGNOSIS: # ACUTE HYPOXEMIC RESP FAILURE # ACUTE SEPSIS # MULTILOBAR PNEUMOCOCCAL PNEUMONIA # COPD WITH EXACERBATION # HOMELESSNESS PLANS: -continue current antibiotics and respiratory supportive care -bronchodilators -Pneumovax -attempt to increase physical activity today I reviewed the patient's condition and care in detail today with Dr. Uriel Castro. Patient also seen on multidisciplinary rounds SUBJECTIVE: -still with shortness of breath -some chest discomfort OBJECTIVE Vitals reviewed: Remains fairly tachypneic on oxygen, otherwise stable without fever nuclear monitoring technician, reviewed by me: Sinus rhythm Exam: alert oriented skin warm dry color ok resps not labored lungs diffuse bilateral rhonchi heart regular abd soft nondistended nontender, bowel sounds present limbs warm, no edema iv site ok Laboratory data: White blood cell count now to 16,000 otherwise stable Chest x-ray today, my personal interpretation of the images: Some progression and bilateral infiltrates today, still predominant right upper lobe Objective: Vital Signs Temp Pulse Resp BP Pulse Ox 37.1 C 90 26 H 146/71 H 96 05/11/16 07:47 05/11/16 07:47 05/11/16 07:47 05/11/16 07:47 05/11/16 07:47 Microbiology 05/09/16 10:05 - Final Sputum, Expectorated Laboratory Results 05/11/16 04:40 05/11/16 04:15 05/10/16 05/11/16 05/12/16 06:59 06:59 06:59 Intake Total 3267 4581 Output Total 875 375 Balance 3930 3494 ICD10 Worksheet Patient Problems: Problems Problem Status Diagnosed Pneumonia Acute Sepsis Acute
--- NOTE | 2016-05-11 12:25 | PDINTPN ---
Clinical Esthetician Progress Note Assessment/Plan: Assessment: Multi lobar pneumococcal pneumonia. Chest x-rays involving. Component of volume overload may be present as well at this point. Input is I had by almost 7 L compared to admission. On ceftriaxone. Organism is taylor-sensitive. COPD: He likely has at least moderate disease. He continues to smoke. Not interested in stopping. On bronchodilator therapy. I will add inhaled steroids. Oxygen needs stable. DVT prophylaxis: On enoxaparin. Anemia: Hematocrit 31. No evidence of bleeding. Likely related to volume status and chronic disease. GI prophylaxis: Eating. Metabolic: No significant issues identified. Homelessness Plan: Antibiotics and bronchopulmonary therapies will be continued. Chest x- ray can be followed intermittently. Lasix will be given today. Inhaled budesonide will be added to his regimen. Continued hospitalization with close followup is indicated. Subjective: Still feels weak, not well. Coughing but not bringing up much mucus. Denies Chest pain. Objective: Vital Signs Temp Pulse Resp BP Pulse Ox 37.1 C 94 22 H 146/71 H 94 05/11/16 07:47 05/11/16 11:02 05/11/16 11:02 05/11/16 07:47 05/11/16 11:02 Microbiology 05/09/16 10:05 - Final Sputum, Expectorated Laboratory Results 05/11/16 04:40 05/11/16 04:15 05/10/16 05/11/16 05/12/16 05:59 05:59 05:59 Intake Total 4805 3869 Output Total 875 375 Balance 3930 3494 Laboratory Tests 05/11/16 04:15 Calcium 7.8 L CXR: Infiltrates, greatest in the right upper lobe, are more extensive with some hypoventilatory changes present. A component of volume overload, be excluded. Physical Exam - Physical Exam General Appearance: thin, other (Somewhat somnolent, arousable. No acute distress.) EENT: other (Nasal cannula at 5 L, no change. Saturations 94%.) Neck: normal inspection (No jugular venous distension) Respiratory: decreased breath sounds (Bilaterally), rales (Present bilaterally, right greater than left, with consolidative changes on the right.), rhonchi ( Centrally with cough), wheezing (Some expiratory wheezes present), No lungs clear, No normal breath sounds Cardiac/Chest: regular rate, rhythm (Distant heart tones, soft systolic murmur, probable increased P2) Abdomen: normal bowel sounds, non-tender, soft Skin: normal color, warm/dry Lymphatic: no adenopathy Extremities: pedal edema (Trace) Neuro/Psych: no motor/sensory deficits (Moves all extremities), No cognition abnormalities ICD10 Worksheet Patient Problems: Problems Problem Status Diagnosed Pneumonia Acute Sepsis Acute
[2016-05-11] MEDS ORDERED: FUROSEMIDE 20 MG/2 ML VIAL IVP ONE (12:33)
--- NOTE | 2016-05-11 13:37 | SOAPPROG ---
SOAP Progress Note Assessment/Plan: Asse 1. Pneumonia 2. Respiratory failure 3. COPD 4. Greater than 100 pack-year smoking history 5. Coronary artery disease 7. Hypertension.. Plan: 05/10/16 13:15 05/11/16 13:50 1. Pneumonia 2. Respiratory failure 3. COPD 4. Greater than 100 pack-year smoking history 5. Coronary artery disease 6. Hypertension He feels worse today. His chest x-ray does not look improved and may be worse. He is tired He feels very weak Tells me is not having fever chills. He is not having any chest tightness jaw pain arm pain. He has not developed any edema. He is still able to lie flat. Overall from a cardiovascular point of view I feel he is stable. We do not need to do any acute cardiac interventions at this time. Very concerned about the quality of his breathing and the status of his infection. And there remains an issue to think about whether not he may in fact have some neoplastic process contributing to his problems. For now he is to currently stable if not improving. I have answered all his questions. I have spent some time in talking with him. We will follow him with you. There is no acute congestive heart failure at this point in time. Subjective: He feels worse today. He is very weak. He has more shortness of breath. He is not having chest pain. He has no nausea or vomiting. He has no new rashes. He has knee no other issues right now. He is not lightheaded or dizzy. He has no jaw pain arm pain. He has no pleuritic pain. Objective: Vital Signs Temp Pulse Resp BP Pulse Ox 37.1 C 94 22 H 146/71 H 94 05/11/16 07:47 05/11/16 11:02 05/11/16 11:02 05/11/16 07:47 05/11/16 11:02 Microbiology 05/09/16 10:05 - Final Sputum, Expectorated Laboratory Results 05/11/16 04:40 05/11/16 04:15 05/10/16 05/11/16 05/12/16 05:59 05:59 05:59 Intake Total 7265 3599 Output Total 875 375 Balance 3930 2974 Laboratory Tests 05/09/16 05/09/16 05/09/16 07:53 15:10 20:45 WBC Hct 45.8 Glucose Troponin I < 0.012 < 0.012 Cholesterol Non-HDL Cholesterol HDL Cholesterol 05/10/16 05/11/16 05/11/16 05:35 04:15 04:40 WBC 16.14 H Hct 41.6 31.5 L D Glucose 58 L 122 H Troponin I Cholesterol 90 L Non-HDL Cholesterol 61 L HDL Cholesterol 29 L Physical Exam - Physical Exam General Appearance: alert, no apparent distress Neck: non-tender, supple Respiratory: decreased breath sounds, rhonchi, prolonged expiration Cardiac/Chest: regular rate, rhythm, systolic murmur (ssmllsb) Abdomen: non-tender, soft, No organomegaly Skin: warm/dry, pallor Extremities: non-tender, No pedal edema, No calf tenderness Neuro/Psych: alert, oriented x 3 ICD10 Worksheet Patient Problems: Problems Problem Status Diagnosed Pneumonia Acute Sepsis Acute
--- NOTE | 2016-05-11 13:39 | PCMIDPN ---
Assessment/Plan: Assessment/Plan: * Sepsis due to Streptococcus pneumoniae bacteremia associated with multilobar pneumonia: More dyspneic this a.m.. Chest x-ray with slightly more prominent infiltrates. Streptococcus pneumoniae is penicillin susceptible. Will change ceftriaxone to penicillin 4 million units IV q.6 hours. Pulmonology note reviewed with plans for adjunct of diuresis and inhaled steroids. Repeat blood cultures are pending to assess for clearing of bacteremia. HIV antibody is negative. Follow chest x-ray over time to ensure does not evolve parapneumonic effusion. 05/11/16 13:35 05/11/16 13:37 Subjective: Patient complains of feeling terrible. Feels feverish and is short of breath. Objective: Vital Signs Temp Pulse Resp BP Pulse Ox 37.1 C 94 22 H 146/71 H 94 05/11/16 07:47 05/11/16 11:02 05/11/16 11:02 05/11/16 07:47 05/11/16 11:02 Microbiology 05/09/16 10:05 - Final Sputum, Expectorated Laboratory Results 05/11/16 04:40 05/11/16 04:15 05/10/16 05/11/16 05/12/16 05:59 05:59 05:59 Intake Total 4805 3869 Output Total 875 375 Balance 3930 3494 Ceftriaxone # 3 Streptococcus pneumoniae isolate is taylor susceptible Chest x-ray with slight increase in infiltrates and probable small right effusion - Physical Exam General Appearance: alert, non-toxic Respiratory: respiratory distress (Tachypneic), crackles (Bilateral bases and right lower lung field), coarse breath sounds Cardiac/Chest: regular rate, rhythm, No systolic murmur Abdomen: non-tender, No distended Skin: other (Diffuse excoriations over lower extremities bilaterally) ICD10 Worksheet Patient Problems: Problems Problem Status Diagnosed Pneumonia Acute Sepsis Acute
[2016-05-11 13:50] LABS: BILIRUBIN,TOTAL 0.5 mg/dL (0.1-1.4); BILIRUBIN-CONJUGATED 0.2 mg/dL (0.0-0.5); BILIRUBIN-UNCONJUGATED 0.3 mg/dL (0.0-1.1); TOTAL PROTEIN 4.3 g/dL (6.3-8.2)
[2016-05-11] MEDS ORDERED: FLU VACC QS 2016-17(3-64YR)/PF 0.5 ML SYR (FLUARIX QUAD) IM ONE ×2 (18:20→18:21)
[2016-05-11] MEDS: PENICILLIN G POTASSIUM 4,000,000 UNIT in D5W 100 ML IV SCH ×2 (18:24→23:27)
[2016-05-11] MEDS: D5W 1/2 NS 1,000 ML IV SCH (19:31)
[2016-05-11] MEDS: ONDANSETRON 4 MG/2 ML VIAL IVP PRN (20:51)
[2016-05-11] MEDS: BUDESONIDE 0.5 MG/2 ML AMPUL.NEB IH SCH (21:41)
[2016-05-11] MEDS: ZOLPIDEM TARTRATE 5 MG TAB PO PRN (22:02)
[2016-05-12] MEDS: PENICILLIN G POTASSIUM 4,000,000 UNIT in D5W 100 ML IV SCH ×3 (05:39→18:38)
[2016-05-12 05:54] LABS: % IMMATURE GRANULYOCYTES 0.5 % (0.0-1.1); ADD DIFF? NO; ADD MORPH? NO; ADD SCAN? YES; ATYPICAL LYMPHOCYTE FLAG 0 (0-99); FRAGMENT RBC FLAG 0 (0-99); HEMATOCRIT 35.4 % (40.0-51.0); HEMOGLOBIN 11.6 g/dL (13.7-17.5); LIPEMIA HEMOLYSIS FLAG 80 (0-99); MEAN CELL HEMOGLOBIN 30.8 pg (27.9-34.1); MEAN CELL HEMOGLOBIN CONCENTR. 32.8 g/dL (32.4-36.7); MEAN CELL VOLUME 93.9 fL (81.5-99.8); MEAN PLATELET VOLUME 9.3 fL (8.7-11.7); PLATELET CLUMPS FLAG 0 (0-99); PLATELET COUNT 228 10^3/uL (150-400); RED BLOOD CELL COUNT 3.77 10^6/uL (4.40-6.38); RED CELL DISTRIBUTION WIDTH 13.7 % (11.5-15.2)
[2016-05-12 06:10] LABS: LEFT SHIFT FLG 200 (0-99)
[2016-05-12 06:15] LABS: ANION GAP 8 mEq/L (8-16); CALCIUM 7.7 mg/dL (8.5-10.4); CARBON DIOXIDE 24 mEq/l (22-31); CHLORIDE 107 mEq/L (97-110); CREATININE 0.7 mg/dL (0.7-1.3); GLOMERULAR FILTRATION RATE > 60; GLUCOSE 187 mg/dL (70-100); MAGNESIUM 1.6 mg/dL (1.6-2.3); POTASSIUM 3.4 mEq/L (3.5-5.2); SODIUM 139 mEq/L (134-144)
[2016-05-12] MEDS: IPRATROPIUM/ALBUTEROL 3 ML DEYVIAL IH SCH ×3 (06:15→17:20)
[2016-05-12] MEDS: ONDANSETRON 4 MG/2 ML VIAL IVP PRN ×2 (06:30→15:25)
[2016-05-12] MEDS: oxyCODONE IR 5 MG TAB PO PRN ×3 (06:30→20:55)
[2016-05-12] MEDS: D5W 1/2 NS 1,000 ML IV SCH (06:35)
[2016-05-12 07:07] LABS: SCAN NEGATIVE
[2016-05-12] MEDS: ENOXAPARIN 40 MG/0.4 ML SYR SC SCH (09:35)
[2016-05-12] MEDS: guaiFENesin 600 MG TAB.ER PO SCH ×2 (09:35→20:54)
[2016-05-12] MEDS: ASPIRIN EC 81 MG TAB PO SCH (09:35)
--- NOTE | 2016-05-12 09:35 | PCMIDPN ---
Assessment/Plan: 1. Multilobar pneumonia/pneumococcal sepsis: White blood cell count increasing, as is oxygen requirement. Of note, white blood cell count upon admission was 2.5--hopefully this represents WBC zenith and numbers will start to fall tomorrow. That being said, given rising bandemia will look for evidence of empyema/parapneumonic effusion with noncontrast CT scan today. No evidence of pneumococcal endocarditis/ meningitis. Check SPEP/ UPEP. HIV antibody negative. Patient counseled the length today about the fact that his longstanding tobacco use was causative. He expressed a desire to quit smoking. Continue penicillin as is. Repeat blood cultures pending. Subjective: Says he still feels poorly with ongoing shortness of breath.. Has some discomfort in his anterior chest when he breathes deeply. Not coughing as much as he was yesterday. Denies headache, stiff neck, confusion, photophobia. Constipated. No shaking chills. Objective: Penicillin for g IV q.6 hours day 1. (Antibiotics day 4.) T-max 37.1degrees 92% with 10 L by Oxymizer Vital Signs Temp Pulse Resp BP Pulse Ox 36.8 C 89 18 155/70 H 94 05/12/16 07:29 05/12/16 07:29 05/12/16 07:29 05/12/16 07:29 05/12/16 07:29 Microbiology 05/09/16 10:05 - Final Sputum, Expectorated Laboratory Results 05/12/16 05:45 05/12/16 05:45 05/11/16 05/12/16 05/13/16 05:59 05:59 05:59 Intake Total 3869 1876 230 Output Total 375 9195 Balance 3494 -649 230 Blood cultures May 11 pending Sputum culture May 09 oral [place] Blood cultures May 09 x2 08/01 bottles with Streptococcus pneumoniae sensitive to penicillin Flu PCR negative HIV negative - Physical Exam General Appearance: cachetic EENT: pharynx normal, No thrush Respiratory: coarse breath sounds (Bilateral lung bases. Egophony right and left lung bases. Audible breath sounds bilateral lung garibay. No rub.) Cardiac/Chest: tachycardia, No systolic murmur Abdomen: non-tender, soft Skin: other (Excoriations bilateral lower extremities. No stigmata of endocarditis.), No embolic lesions ICD10 Worksheet Patient Problems: Problems Problem Status Diagnosed Pneumonia Acute Sepsis Acute
[2016-05-12 10:20] LABS: PLATELET ESTIMATE ADEQUATE (ADEQ)
--- NOTE | 2016-05-12 10:38 | HOSPPROG ---
Hospitalist Progress Note Assessment/Plan: DIAGNOSIS: # ACUTE HYPOXEMIC RESP FAILURE # ACUTE SEPSIS # MULTILOBAR PNEUMOCOCCAL PNEUMONIA # ANEMIA # SEVERE DECONDITIONING # COPD WITH EXACERBATION # HOMELESSNESS PLANS: -continue current antibiotics and respiratory supportive care -CT scan to eval for possible empyema -bronchodilators -Pneumovax -attempt to increase physical activity today -smoking cessation counseling today, he is more amenable at present I reviewed the patient's condition and care in detail today with Drs. Messer and Uriel Castro. Patient also seen on multidisciplinary rounds SUBJECTIVE: -still with shortness of breath, and remains extremely weak; a lot of nausea and not eating much at all -some chest discomfort with cough -not ambulating yet OBJECTIVE Vitals reviewed: Remains fairly tachypneic on oxygen, otherwise stable without fever desk monitor, reviewed by me: Sinus rhythm Exam: alert oriented skin warm dry color ok resps somewhat labored lungs diffuse bilateral rhonchi heart regular abd soft nondistended nontender, bowel sounds present limbs warm, no edema iv site ok Laboratory data: White blood cell count now to 19,000, K a bit low, otherwise stable Objective: Vital Signs Temp Pulse Resp BP Pulse Ox 36.8 C 89 18 155/70 H 94 05/12/16 07:29 05/12/16 07:29 05/12/16 07:29 05/12/16 07:29 05/12/16 07:29 Microbiology 05/09/16 10:05 - Final Sputum, Expectorated Laboratory Results 05/12/16 05:45 05/12/16 05:45 05/11/16 05/12/16 05/13/16 06:59 06:59 06:59 Intake Total 2677 1731 Output Total 369 3884 Balance 3494 -419 ICD10 Worksheet Patient Problems: Problems Problem Status Diagnosed Pneumonia Acute Sepsis Acute
[2016-05-12] MEDS: BUDESONIDE 0.5 MG/2 ML AMPUL.NEB IH SCH (10:55)
--- NOTE | 2016-05-12 14:19 | PDINTPN ---
Mortgage Loan Underwriter Progress Note Assessment/Plan: Assessment: Multi lobar pneumococcal pneumonia. Chest x-rays involving. Component of volume overload may be present as well at this point. Input is I had by almost 7 L compared to admission. On ceftriaxone. Organism is taylor-sensitive. COPD: He likely has at least moderate disease. He continues to smoke. Not interested in stopping. On bronchodilator therapy. I will add inhaled steroids. Oxygen needs stable. DVT prophylaxis: On enoxaparin. Anemia: Hematocrit 31. No evidence of bleeding. Likely related to volume status and chronic disease. GI prophylaxis: Eating. Metabolic: No significant issues identified. Homelessness Plan: Antibiotics and bronchopulmonary therapies will be continued. Chest x- ray can be followed intermittently. Lasix will be given today. Inhaled budesonide will be added to his regimen. Continued hospitalization with close followup is indicated. Subjective: Feels significantly better today. Stronger, less fatigued. He is coughing and is able to clear some mucus. He denies chest pain. Less short of breath. Objective: Vital Signs Temp Pulse Resp BP Pulse Ox 36.8 C 81 18 155/70 H 94 05/12/16 07:29 05/12/16 10:57 05/12/16 10:57 05/12/16 07:29 05/12/16 10:57 Microbiology 05/09/16 10:05 - Final Sputum, Expectorated Sputum Culture - Final Laboratory Results 05/12/16 05:45 05/12/16 05:45 05/11/16 05/12/16 05/13/16 05:59 05:59 05:59 Intake Total 3869 1876 230 Output Total 375 2525 Balance 3494 -649 230 Laboratory Tests 05/12/16 05:45 Calcium 7.7 L Phosphorus 2.9 Magnesium 1.6 CXR: None today. CT scan of the chest: Pending Physical Exam - Physical Exam General Appearance: alert, no apparent distress EENT: other (Nasal cannula 4 L) Neck: normal inspection (No jugular venous distension) Respiratory: decreased breath sounds (However aeration is improved), rales ( Scattered, bilateral at bases), rhonchi (Few with cough), wheezing (Few expiratory wheezes, not tight) Cardiac/Chest: regular rate, rhythm Abdomen: normal bowel sounds, non-tender, soft ICD10 Worksheet Patient Problems: Problems Problem Status Diagnosed Pneumonia Acute Sepsis Acute
--- NOTE | 2016-05-12 14:28 | PDINTPN ---
Requirements Manager Progress Note Assessment/Plan: Assessment: Multi lobar pneumococcal pneumonia. Significantly improved today. On ceftriaxone. Organism is taylor-sensitive. COPD: He likely has at least moderate disease. He continues to smoke. Not interested in stopping. On bronchodilator therapy and inhaled steroids. Oxygen needs are improving. DVT prophylaxis: On enoxaparin. Anemia: Hematocrit 35, better. No evidence of bleeding. Likely related to volume status and chronic disease. GI prophylaxis: Eating. Metabolic: No significant issues identified. Homelessness Plan: Antibiotics and bronchopulmonary therapies will be continued. Chest x- ray can be followed intermittently. Follow input and output. Lasix as needed. Continue Inhaled budesonide. Continued hospitalization for now but began to look at disposition issues and discharge on oral antibiotics. Subjective: Feels significantly better. Stronger, appetite better, no chest pain, less short of breath. Is coughing, bringing up some mucus Objective: Vital Signs Temp Pulse Resp BP Pulse Ox 36.8 C 81 18 155/70 H 94 05/12/16 07:29 05/12/16 10:57 05/12/16 10:57 05/12/16 07:29 05/12/16 10:57 Microbiology 05/09/16 10:05 - Final Sputum, Expectorated Sputum Culture - Final Laboratory Results 05/12/16 05:45 05/12/16 05:45 05/11/16 05/12/16 05/13/16 05:59 05:59 05:59 Intake Total 3869 1876 230 Output Total 375 2525 Balance 3494 -649 230 Physical Exam - Physical Exam General Appearance: alert, no apparent distress EENT: other (Nasal cannula 4 L) Neck: normal inspection Respiratory: decreased breath sounds (Bilaterally), rales (Scattered bilaterally a posterior bases), rhonchi (Few with cough), wheezing (Few expiratory wheezes) Cardiac/Chest: regular rate, rhythm Abdomen: normal bowel sounds, non-tender, soft Back: Normal inspection Skin: warm/dry Extremities: pedal edema (Trace) Neuro/Psych: no motor/sensory deficits, No cognition abnormalities ICD10 Worksheet Patient Problems: Problems Problem Status Diagnosed Pneumonia Acute Sepsis Acute
--- NOTE | 2016-05-12 14:44 | CT ---
CT Chest, Without Contrast May 12, 2016 Indication: Pneumococcal pneumonia and elevated white blood cell count. Evaluate for effusion. Technique: 4 mm thick helically acquired slices were obtained through the chest without contrast. Dos e reduction techniques were utilized. Comparison: Portable chest from one day prior. Findings: Dense confluent airspace consolidation in the posterior segment right upper lobe is contigu ous with diffuse ground-glass pulmonary opacities throughout the right upper lobe extending to the pl eural surface. Air bronchograms course through the dense consolidation. No mucous plugging or central endobronchial lesion. Scattered bilateral ground-glass pulmonary opacities sparing the subpleural distribution involve the right middle lobe, right lower lobe, left upper lobe, and left lower lobe. The distribution favors stevens perimposed interstitial pulmonary edema rather than diffuse bronchopneumonia. No evidence of pulmonar y abscess or mass. A small to moderate right pleural effusion, measuring 2.5 cm in thickness, layers from the apex to th e base. Small left pleural effusion, measuring 1 cm in thickness, layers two thirds up the left hemit horax. No pericardial effusion. The thoracic aorta is minimally tortuous and normal caliber with mild calcif ied plaque. Three-vessel calcified coronary plaque is present. Several minimally enlarged lymph nodes along the right paratracheal and aortopulmonary window may be reactive to underlying pneumonia. Impression: 1. Dense right upper lobe pneumonia. No evidence of pulmonary abscess or central obstructing lesion. 2. Diffuse interstitial pulmonary edema. 3. Small to moderate right and small left simple layering bilateral pleural effusions.
--- NOTE | 2016-05-12 15:55 | SOAPPROG ---
SOAP Progress Note Assessment/Plan: Asse 1. Pneumonia 2. Respiratory failure 3. COPD 4. Greater than 100 pack-year smoking history 5. Coronary artery disease 7. Hypertension.. Plan: 05/10/16 13:15 05/11/16 13:50 1. Pneumonia 2. Respiratory failure 3. COPD 4. Greater than 100 pack-year smoking history 5. Coronary artery disease 6. Hypertension 05/12/16 15:54 I have talked with the patient today and and examined him. Have reviewed his case with the intensive care attending Dr. Uriel Castro. The patient is currently stable and we both feel if no further reason for cardiology to follow him. We will sign off today. If there is anything I can do to help or my service can do to help please call us at any time. I have talked to the patient and answered all his questions. I have told him I would be happy to see him in clinic in follow-up. He will need long-term close cardiac care. Objective: Vital Signs Temp Pulse Resp BP Pulse Ox 37.2 C 83 16 160/75 H 98 05/12/16 15:05 05/12/16 15:05 05/12/16 15:05 05/12/16 15:05 05/12/16 15:05 Microbiology 05/09/16 10:05 - Final Sputum, Expectorated Sputum Culture - Final Laboratory Results 05/12/16 05:45 05/12/16 05:45 05/11/16 05/12/16 05/13/16 05:59 05:59 05:59 Intake Total 5128 1876 230 Output Total 375 0075 100 Balance 3494 -749 130 ICD10 Worksheet Patient Problems: Problems Problem Status Diagnosed Pneumonia Acute Sepsis Acute
[2016-05-12] MEDS: ZOLPIDEM TARTRATE 5 MG TAB PO PRN (20:54)
[2016-05-13] MEDS: PENICILLIN G POTASSIUM 4,000,000 UNIT in D5W 100 ML IV SCH ×5 (00:32→23:52)
[2016-05-13] MEDS: IPRATROPIUM/ALBUTEROL 3 ML DEYVIAL IH SCH ×5 (01:13→21:27)
[2016-05-13] MEDS: BUDESONIDE 0.5 MG/2 ML AMPUL.NEB IH SCH ×3 (01:14→21:27)
[2016-05-13] MEDS: oxyCODONE IR 5 MG TAB PO PRN ×4 (02:25→21:54)
[2016-05-13] MEDS: LORazepam 0.5 MG TAB PO PRN (02:25)
[2016-05-13] MEDS: ASPIRIN EC 81 MG TAB PO SCH (09:17)
[2016-05-13] MEDS: guaiFENesin 600 MG TAB.ER PO SCH ×2 (09:17→21:54)
[2016-05-13] MEDS: ENOXAPARIN 40 MG/0.4 ML SYR SC SCH (09:17)
[2016-05-13] MEDS: ONDANSETRON 4 MG/2 ML VIAL IVP PRN ×2 (09:17→15:27)
--- NOTE | 2016-05-13 11:42 | PCMIDPN ---
Assessment/Plan: # Sepsis secondary to pneumococcal bacteremia and pneumonia, chest x-ray performed today which generally appears slightly improved. WBC improved significantly. Nonetheless patient is with some increased oxygen requirements today, query COPD versus volume overload. Clinically appears does not appear volume overloaded (no lower extremity edema) but CT scan shows some interstitial edema that could be consistent with a volume. Blood cultures from 05/11/2016 demonstrate clearance of pneumococcus. --continue IV penicillin, patient will need 2 weeks of therapy Subjective: Patient is in good spirits, felt increasing shortness of breath this morning particularly when he was not wearing his oxygen supplementation Objective: Vital Signs Temp Pulse Resp BP Pulse Ox 37.0 C 80 16 150/85 H 97 05/13/16 08:00 05/13/16 08:00 05/13/16 08:00 05/13/16 08:00 05/13/16 08:00 Microbiology 05/09/16 10:05 - Final Sputum, Expectorated Sputum Culture - Final Laboratory Results 05/12/16 05:45 05/12/16 05:45 05/12/16 05/13/16 05/14/16 05:59 05:59 05:59 Intake Total 1876 430 Output Total 2525 300 Balance -649 130 Laboratory Tests 05/12/16 05/13/16 05:45 11:40 WBC 19.92 H 9.79 H D - Physical Exam General Appearance: alert, non-toxic EENT: poor dentition, No thrush Respiratory: accessory muscle use (Mild), crackles, No respiratory distress Neck: supple Cardiac/Chest: regular rate, rhythm Extremities: No pedal edema Abdomen: non-tender, soft, distended Male Genitalia: No [place] Skin: normal color, warm/dry, No diaphoresis, No rash, No embolic lesions Neuro/Psych: alert, normal mood/affect, oriented x 3 - Time Spent With Patient Time Spent with Patient: greater than 35 minutes (Coordination of care with hospital service) Time Spent with Patient: Greater than 35 minutes spent on this patients care, greater than 50% of time spent counseling, educating, and coordinating care regarding the above mentioned plan. ICD10 Worksheet Patient Problems: Problems Problem Status Diagnosed Pneumonia Acute Sepsis Acute
[2016-05-13 11:47] LABS: % IMMATURE GRANULYOCYTES 0.8 % (0.0-1.1); ABSOLUTE IMMATURE GRANULOCYTES 0.08 10^3/uL (0.00-0.10); ADD DIFF? NO; ADD MORPH? NO; ADD SCAN? NO; ATYPICAL LYMPHOCYTE FLAG 0 (0-99); FRAGMENT RBC FLAG 0 (0-99); HEMATOCRIT 35.8 % (40.0-51.0); LEFT SHIFT FLG 30 (0-99); LIPEMIA HEMOLYSIS FLAG 80 (0-99); MEAN CELL HEMOGLOBIN 30.9 pg (27.9-34.1); MEAN CELL HEMOGLOBIN CONCENTR. 33.5 g/dL (32.4-36.7); MEAN CELL VOLUME 92.3 fL (81.5-99.8); MEAN PLATELET VOLUME 9.7 fL (8.7-11.7); PLATELET CLUMPS FLAG 10 (0-99); PLATELET COUNT 243 10^3/uL (150-400); RED BLOOD CELL COUNT 3.88 10^6/uL (4.40-6.38); RED CELL DISTRIBUTION WIDTH 13.7 % (11.5-15.2)
--- NOTE | 2016-05-13 11:50 | DX ---
Portable Chest May 13, 2016 1121 hours Clinical Indications: Increasing hypoxia in a 60-year-old male with known pneumonia; comparison 2016. Findings: There has been decrease in the extent of right upper lobe opacity. Additionally, perihilar opacities bilaterally have diminished. The heart size remains normal allowing for portable technique. No significant pleural effusion is seen on this portable film. Aortic tortuosity is noted. Impression: Decreasing alveolar opacities bilaterally, most pronounced involving the right upper lobe .
[2016-05-13 12:03] LABS: ALANINE AMINOTRANSFERASE 32 IU/L (21-72); ALBUMIN 2.3 g/dL (3.5-5.0); ALKALINE PHOSPHATASE 94 IU/L (38-126); ANION GAP 9 mEq/L (8-16); ASPARTATE AMINOTRANSFERASE 26 IU/L (17-59); BILIRUBIN,TOTAL 0.6 mg/dL (0.1-1.4); CALCIUM 8.1 mg/dL (8.5-10.4); CARBON DIOXIDE 24 mEq/l (22-31); CHLORIDE 106 mEq/L (97-110); CREATININE 0.6 mg/dL (0.7-1.3); GLOMERULAR FILTRATION RATE > 60; GLUCOSE 123 mg/dL (70-100); SODIUM 139 mEq/L (134-144); TOTAL PROTEIN 4.8 g/dL (6.3-8.2)
[2016-05-13] MEDS ORDERED: methylPREDNISolone SOD SUCC 125 MG/2 ML VIAL IVP ONE (15:05)
--- NOTE | 2016-05-13 15:05 | HOSPPROG ---
Hospitalist Progress Note Assessment/Plan: Mr. De Oliveira is a 60-year-old male who was admitted for shortness of breath and cough. He has a history of hypertension and homelessness. Today is my 1st encounter with the patient. Chart reviewed. IA evaluated the patient along with Dr. Kat Sierra with infectious disease. I also reviewed his care with Dr. Raji Moody who saw him yesterday. #. Sepsis due to pneumococcal bacteremia * 2nd set of blood culture show no growth * on penicillin #. multilobar pneumococcal pneumonia * on penicillin #. acute hypoxemic respiratory failure * evaluated the patient earlier with Dr. Sierra and he was on 6 L * was called by nursing staff because of increased O2 needs this afternoon, now on 10 L * respiratory therapy to give a treatment, will give him a dose of Solu-Medrol 125 mg IV now #. COPD with exacerbation * will discuss with Dr. Castro about scheduled IV steroids #. nicotine dependence * patient told me that he is more motivated to quit smoking since being so ill #. anemia/mild #. homelessness Plan: will have a low threshold to transfer the patient to ICU or step-down Subjective: Arsalan was feeling better this morning.Now w worsening shortness of breath. Objective: Vital Signs Temp Pulse Resp BP Pulse Ox 37.0 C 80 16 150/85 H 97 05/13/16 08:00 05/13/16 08:00 05/13/16 08:00 05/13/16 08:00 05/13/16 08:00 Microbiology 05/09/16 10:05 - Final Sputum, Expectorated Sputum Culture - Final Laboratory Results 05/13/16 11:40 05/13/16 11:40 05/12/16 05/13/16 05/14/16 05:59 05:59 05:59 Intake Total 1876 430 Output Total 2525 300 Balance -649 130 - Physical Exam Constitutional: chronically ill appearing, other (thin) Eyes: PERRL Ears, Nose, Mouth, Throat: hearing normal Cardiovascular: regular rate and rhythym Respiratory: reduced air movement, rhonchi (mainly in right base and scattered through both lungs), No no respiratory distress (mild) Gastrointestinal: normoactive bowel sounds Skin: warm Musculoskeletal: no muscle tenderness Neurologic: AAOx3 Psychiatric: interacting appropriately, not anxious ICD10 Worksheet Patient Problems: Problems Problem Status Diagnosed Pneumonia Acute Sepsis Acute
[2016-05-13] MEDS ORDERED: FUROSEMIDE 20 MG/2 ML VIAL IVP ONE (17:05)
--- NOTE | 2016-05-13 18:25 | PDINTPN ---
[facility] Lead Progress Note Assessment/Plan: Assessment: Multi lobar pneumococcal pneumonia. More short of breath at times, possibly secondary to mucus, possibly secondary to bronchospasm/COPD?. On pcn. Organism is taylor-sensitive. Id following. COPD: He likely has at least moderate disease. He continues to smoke. Not interested in stopping. On bronchodilator therapy and inhaled steroids. Oxygen needs are improving. DVT prophylaxis: On enoxaparin. Anemia: Hematocrit 35, better. No evidence of bleeding. Likely related to volume status and chronic disease. GI prophylaxis: Eating. Metabolic: No significant issues identified. Homelessness Plan: Antibiotics and bronchopulmonary therapies will be continued. Agree with Solu-Medrol. Will continue. Lasix today. Repeat chest x-ray in the a.m.. Subjective: More short of breath today at times. Objective: Vital Signs Temp Pulse Resp BP Pulse Ox 36.9 C 84 18 158/85 H 90 L 05/13/16 16:00 05/13/16 16:00 05/13/16 16:00 05/13/16 16:00 05/13/16 16:00 Microbiology 05/09/16 10:05 - Final Sputum, Expectorated Sputum Culture - Final Laboratory Results 05/13/16 11:40 05/13/16 11:40 05/12/16 05/13/16 05/14/16 05:59 05:59 05:59 Intake Total 1876 430 220 Output Total 2525 300 850 Balance -649 130 -630 CXR: Improving on right, increasing markings on left, possibly secondary to volume status? Physical Exam - Physical Exam General Appearance: alert, no apparent distress EENT: other (Currently on an OxyMask at 6 L) Neck: normal inspection (No JVD) Respiratory: decreased breath sounds, rales (Bilateral rales, anterior and posterior), rhonchi (Central congestion present with exhalation), wheezing (Not using xs musculature. Wheezes are coarse in exhalation), No lungs clear, No normal breath sounds, No respiratory distress, No accessory muscle use Cardiac/Chest: tachycardia Abdomen: normal bowel sounds, non-tender, soft Skin: normal color, warm/dry Extremities: pedal edema (Trace) Neuro/Psych: no motor/sensory deficits, No cognition abnormalities ICD10 Worksheet Patient Problems: Problems Problem Status Diagnosed Pneumonia Acute Sepsis Acute
[2016-05-13] MEDS: methylPREDNISolone SOD SUCC 125 MG/2 ML VIAL IVP SCH (21:53)
[2016-05-13] MEDS: ZOLPIDEM TARTRATE 5 MG TAB PO PRN (21:54)
[2016-05-14 05:05] LABS: % IMMATURE GRANULYOCYTES 1.3 % (0.0-1.1); ABSOLUTE IMMATURE GRANULOCYTES 0.07 10^3/uL (0.00-0.10); ADD DIFF? NO; ADD MORPH? NO; ADD SCAN? NO; ATYPICAL LYMPHOCYTE FLAG 20 (0-99); FRAGMENT RBC FLAG 0 (0-99); HEMATOCRIT 37.4 % (40.0-51.0); HEMOGLOBIN 12.6 g/dL (13.7-17.5); LEFT SHIFT FLG 50 (0-99); LIPEMIA HEMOLYSIS FLAG 80 (0-99); MEAN CELL HEMOGLOBIN 30.9 pg (27.9-34.1); MEAN CELL HEMOGLOBIN CONCENTR. 33.7 g/dL (32.4-36.7); MEAN CELL VOLUME 91.7 fL (81.5-99.8); MEAN PLATELET VOLUME 9.9 fL (8.7-11.7); PLATELET CLUMPS FLAG 10 (0-99); PLATELET COUNT 273 10^3/uL (150-400); RED BLOOD CELL COUNT 4.08 10^6/uL (4.40-6.38); RED CELL DISTRIBUTION WIDTH 13.6 % (11.5-15.2)
[2016-05-14] MEDS: PENICILLIN G POTASSIUM 4,000,000 UNIT in D5W 100 ML IV SCH ×2 (05:09→13:43)
[2016-05-14] MEDS: methylPREDNISolone SOD SUCC 125 MG/2 ML VIAL IVP SCH ×2 (05:09→13:51)
[2016-05-14 05:23] LABS: ALANINE AMINOTRANSFERASE 29 IU/L (21-72); ALBUMIN 2.3 g/dL (3.5-5.0); ALKALINE PHOSPHATASE 93 IU/L (38-126); ANION GAP 11 mEq/L (8-16); ASPARTATE AMINOTRANSFERASE 20 IU/L (17-59); BILIRUBIN,TOTAL 0.5 mg/dL (0.1-1.4); CALCIUM 8.5 mg/dL (8.5-10.4); CARBON DIOXIDE 24 mEq/l (22-31); CHLORIDE 107 mEq/L (97-110); CREATININE 0.7 mg/dL (0.7-1.3); GLOMERULAR FILTRATION RATE > 60; GLUCOSE 165 mg/dL (70-100); POTASSIUM 4.7 mEq/L (3.5-5.2); SODIUM 142 mEq/L (134-144)
[2016-05-14] MEDS: IPRATROPIUM/ALBUTEROL 3 ML DEYVIAL IH SCH ×4 (05:45→21:51)
[2016-05-14] MEDS: BUDESONIDE 0.5 MG/2 ML AMPUL.NEB IH SCH ×2 (10:30→21:51)
[2016-05-14] MEDS: ASPIRIN EC 81 MG TAB PO SCH (10:59)
[2016-05-14] MEDS: oxyCODONE IR 5 MG TAB PO PRN ×2 (10:59→20:10)
[2016-05-14] MEDS: ENOXAPARIN 40 MG/0.4 ML SYR SC SCH (10:59)
[2016-05-14] MEDS: guaiFENesin 600 MG TAB.ER PO SCH ×2 (11:01→20:11)
[2016-05-14] MEDS ORDERED: FUROSEMIDE 20 MG/2 ML VIAL IVP ONE (11:52)
--- NOTE | 2016-05-14 11:59 | HOSPPROG ---
Hospitalist Progress Note Assessment/Plan: Mr. De Oliveira is a 60-year-old male who was admitted for shortness of breath and cough. He has a history of hypertension and homelessness. #. Sepsis due to pneumococcal bacteremia * 2nd set of blood culture show no growth * on penicillin #. multilobar pneumococcal pneumonia * on penicillin #. acute hypoxemic respiratory failure * much improved with use of steroids and lasix * Arsalan says "I finally feel like I'm breathing" #. COPD with exacerbation * will cont iv steroids through today/ start oral dose tomorrow #. nicotine dependence * patient told me that he is more motivated to quit smoking since being so ill #. anemia/mild #. homelessness Plan: give dose of lasix , changed to oral steroids. reviewed his care with Dr. Kat Sierra. She will place him on oral antibiotics. Subjective: Arsalan is feeling much better today. Objective: Vital Signs Temp Pulse Resp BP Pulse Ox 36.9 C 71 18 138/86 H 98 05/14/16 08:00 05/14/16 08:00 05/14/16 08:00 05/14/16 08:00 05/14/16 08:00 Laboratory Results 05/14/16 04:32 05/14/16 04:32 05/13/16 05/14/16 05/15/16 05:59 05:59 05:59 Intake Total 430 220 Output Total 300 1450 Balance 130 -1230 - Physical Exam Constitutional: chronically ill appearing, other ( Thin) Eyes: PERRL Ears, Nose, Mouth, Throat: hearing normal Cardiovascular: regular rate and rhythym Respiratory: no respiratory distress, other ( few crackles noted at the right base) Gastrointestinal: normoactive bowel sounds Skin: warm Musculoskeletal: full muscle strength Neurologic: AAOx3 Psychiatric: interacting appropriately, anxious ICD10 Worksheet Patient Problems: Problems Problem Status Diagnosed Pneumonia Acute Sepsis Acute
--- NOTE | 2016-05-14 13:07 | PCMIDPN ---
Assessment/Plan: # Sepsis secondary to pneumococcal bacteremia and pneumonia, much improved O2 requirements after diuresis + steroids. Now on 4L Blood cultures from 2016 demonstrate clearance of pneumococcus. --continue IV penicillin, while hospitalized, okay to dc on levofloxacin 750mg PO day through 05/23 for 2 weeks of therapy. Would recommend getting Rx (? through [facility]) so that "antibiotic in patient's hands" upon dc. --call for additional questions from ID service Subjective: "I feel amazing" Objective: Vital Signs Temp Pulse Resp BP Pulse Ox 36.9 C 71 18 138/86 H 98 05/14/16 08:00 05/14/16 08:00 05/14/16 08:00 05/14/16 08:00 05/14/16 08:00 Laboratory Results 05/14/16 04:32 05/14/16 04:32 05/13/16 05/14/16 05/15/16 05:59 05:59 05:59 Intake Total 430 220 Output Total 300 1450 Balance 130 -1230 - Physical Exam General Appearance: alert, no apparent distress, non-toxic EENT: poor dentition, No thrush Respiratory: other (decreased bs throughout, crackles resolved), No accessory muscle use, No wheezing Cardiac/Chest: regular rate, rhythm Extremities: No pedal edema Skin: No rash Neuro/Psych: alert, normal mood/affect, oriented x 3, other (rapid, tangential speech) - Time Spent With Patient Time Spent with Patient: greater than 25 minutes (coordination of care with hospitalists) Time Spent with Patient: Greater than 25 minutes spent on this patients care, greater than 50% of time spent counseling, educating, and coordinating care regarding the above mentioned plan. ICD10 Worksheet Patient Problems: Problems Problem Status Diagnosed Pneumonia Acute Sepsis Acute
--- NOTE | 2016-05-14 18:42 | SOAPPROG ---
SOAP Progress Note Assessment/Plan: Assessment: Multi lobar pneumococcal pneumonia. Improved today with steroids. On Levaquin secondary to loss of IV access. Organism is taylor-sensitive. Id following. COPD: He likely has at least moderate disease. He continues to smoke. Not interested in stopping. On bronchodilator therapy and steroids since yesterday. Improved with these. Can be decreased. Oxygen needs are improving : On 2 L currently. DVT prophylaxis: On enoxaparin. Anemia: Hematocrit 37, better. No evidence of bleeding. Likely related to volume status and chronic disease. GI prophylaxis: Eating. Metabolic: No significant issues identified. Homelessness Plan: Antibiotics and bronchopulmonary therapies will be continued. Agree with decreased steroids. Will repeat chest x-ray in the morning. Subjective: Feels better today regarding breathing however he is somewhat agitated secondary to the steroids. Objective: Vital Signs Temp Pulse Resp BP Pulse Ox 36.6 C 74 18 183/90 H 95 05/14/16 15:45 05/14/16 15:45 05/14/16 15:45 05/14/16 15:45 05/14/16 15:45 Laboratory Results 05/14/16 04:32 05/14/16 04:32 05/13/16 05/14/16 05/15/16 05:59 05:59 05:59 Intake Total 430 220 Output Total 300 1450 Balance 130 -1230 Physical Exam - Physical Exam General Appearance: alert, no apparent distress EENT: other (Nasal cannula oxygen decreased to 2 L) Neck: normal inspection Respiratory: decreased breath sounds, rales (Scattered rales bilaterally), rhonchi (Decreased central rhonchi), wheezing (Some expiratory wheezes persists , somewhat better) Cardiac/Chest: regular rate, rhythm, systolic murmur Abdomen: normal bowel sounds, non-tender, soft Skin: normal color, warm/dry Extremities: pedal edema (Trace) Neuro/Psych: no motor/sensory deficits, No cognition abnormalities ICD10 Worksheet Patient Problems: Problems Problem Status Diagnosed Pneumonia Acute Sepsis Acute
[2016-05-14] MEDS: ZOLPIDEM TARTRATE 5 MG TAB PO PRN (22:10)
[2016-05-15] MEDS: IPRATROPIUM/ALBUTEROL 3 ML DEYVIAL IH SCH ×4 (06:14→20:30)
[2016-05-15] MEDS: PROMETHAZINE HCL 25 MG/ML VIAL IVP PRN (08:18)
[2016-05-15] MEDS: ASPIRIN EC 81 MG TAB PO SCH (08:19)
[2016-05-15] MEDS: oxyCODONE IR 5 MG TAB PO PRN ×3 (08:19→20:45)
[2016-05-15] MEDS: guaiFENesin 600 MG TAB.ER PO SCH ×2 (08:19→20:45)
[2016-05-15] MEDS: predniSONE 20 MG TAB PO SCH (08:19)
[2016-05-15] MEDS: ENOXAPARIN 40 MG/0.4 ML SYR SC SCH (08:20)
[2016-05-15] MEDS: BUDESONIDE 0.5 MG/2 ML AMPUL.NEB IH SCH ×2 (09:45→20:30)
--- NOTE | 2016-05-15 10:07 | SOAPPROG ---
SOAP Progress Note Assessment/Plan: Assessment: Multi lobar pneumococcal pneumonia. Improved today with steroids. On Levaquin secondary to loss of IV access. Organism is taylor-sensitive. Id following. COPD: He likely has at least moderate disease. He continues to smoke. Not interested in stopping. On bronchodilator therapy and steroids. Improved with these. Can be decreased. Oxygen needs are improving: On 2 L currently. DVT prophylaxis: On enoxaparin. Anemia: Hematocrit 37, better. No evidence of bleeding. GI prophylaxis: Eating. Metabolic: No significant issues identified. Homelessness Plan: Antibiotics and bronchopulmonary therapies will be continued. Decrease steroids slowly. Await new x-ray. I will sign off at this point. Dr. Gongora available if needed. I would be happy to see the patient back in the office in the future if he so desires for his underlying COPD. Subjective: Feels much better. Up in chair eating. Denies significant shortness of breath. Still with some cough, some mucus Objective: Vital Signs Temp Pulse Resp BP Pulse Ox 36.7 C 78 14 183/93 H 94 05/15/16 08:08 05/15/16 09:47 05/15/16 09:47 05/15/16 08:08 05/15/16 09:47 Laboratory Results 05/14/16 04:32 05/14/16 04:32 05/14/16 05/15/16 05/16/16 05:59 05:59 05:59 Intake Total 220 Output Total 1450 Balance -1230 CXR: Pending Physical Exam - Physical Exam General Appearance: alert, no apparent distress EENT: other (Nasal cannula 2 L) Neck: normal inspection (No JVD) Respiratory: decreased breath sounds, rales (Few, improved), rhonchi (Few centrally with cough, much less), wheezing (Mild expiratory wheezes. Not tight. ), prolonged expiration, No lungs clear, No normal breath sounds, No respiratory distress Cardiac/Chest: regular rate, rhythm, systolic murmur, other (Increased P2) Abdomen: normal bowel sounds, non-tender, soft Skin: normal color, warm/dry Extremities: pedal edema (Trace) Neuro/Psych: no motor/sensory deficits, No cognition abnormalities ICD10 Worksheet Patient Problems: Problems Problem Status Diagnosed Pneumonia Acute Sepsis Acute
--- NOTE | 2016-05-15 14:04 | DX ---
PA and Lateral Chest Clinical Indications: Followup pneumonia Comparison: portable exam May 13 Findings: Improved inspiration. Bilateral infiltrates remain, with improved peripheral elevation on the right. No pleural fluid. Heart size remains normal. There are mild compressions between T4 and T8 , T11 and T12 a of L2. Impression: 1. Continued improvement in pneumonia. 2. If clinically indicated testing and/or treatment for low bone strength may be considered.
--- NOTE | 2016-05-15 15:00 | HOSPPROG ---
Hospitalist Progress Note Assessment/Plan: Mr. De Oliveira is a 60-year-old male who was admitted for shortness of breath and cough. He has a history of hypertension and homelessness. #. Sepsis due to pneumococcal bacteremia * 2nd set of blood culture show no growth * on Levaquin * had been treated with penicillin #. multilobar pneumococcal pneumonia * now on Levaquin #. acute hypoxemic respiratory failure * much improved with use of steroids and lasix * now on room air at times / on 2 L this afternoon #. COPD with exacerbation * initially treated with IV steroids, now on oral steroids * steroids should be weaned off slowly. * Patient can follow up with Dr. Castro in the outpatient setting #. Hypertension * on diuretic but still high * add low dose Norvasc #. nicotine dependence * patient told me that he is more motivated to quit smoking since being so ill #. anemia/mild #. homelessness: not quite ready for the discharge[facility] but he has been quite ill. Plan: continue steroids and Levaquin. Can be discharged in the next 1-2 days. Subjective: Patient is feeling a little bit more tired today and not as good as last night. But has no specific complaints. Objective: Vital Signs Temp Pulse Resp BP Pulse Ox 36.7 C 78 14 183/93 H 94 05/15/16 08:08 05/15/16 09:47 05/15/16 09:47 05/15/16 08:08 05/15/16 09:47 Laboratory Results 05/14/16 04:32 05/14/16 04:32 05/14/16 05/15/16 05/16/16 05:59 05:59 05:59 Intake Total 220 Output Total 1450 Balance -1230 - Physical Exam Constitutional: other (thin) Eyes: PERRL Ears, Nose, Mouth, Throat: hearing normal Cardiovascular: regular rate and rhythym Respiratory: no respiratory distress, expiratory wheeze ( few scattered) Gastrointestinal: normoactive bowel sounds Skin: warm Musculoskeletal: full muscle strength Neurologic: AAOx3 Psychiatric: interacting appropriately, not anxious ICD10 Worksheet Patient Problems: Problems Problem Status Diagnosed Pneumonia Acute Sepsis Acute
[2016-05-15] MEDS: ZOLPIDEM TARTRATE 5 MG TAB PO PRN (22:52)
[2016-05-16] MEDS: IPRATROPIUM/ALBUTEROL 3 ML DEYVIAL IH SCH ×4 (05:02→22:34)
[2016-05-16] MEDS: oxyCODONE IR 5 MG TAB PO PRN ×3 (08:34→20:59)
[2016-05-16] MEDS: predniSONE 20 MG TAB PO SCH (08:34)
[2016-05-16] MEDS: guaiFENesin 600 MG TAB.ER PO SCH ×2 (08:35→22:04)
[2016-05-16] MEDS: ASPIRIN EC 81 MG TAB PO SCH (08:36)
[2016-05-16] MEDS: HYDROCHLOROTHIAZIDE 25 MG TAB PO SCH (08:36)
[2016-05-16] MEDS: ENOXAPARIN 40 MG/0.4 ML SYR SC SCH (08:36)
[2016-05-16] MEDS ORDERED: MAGNESIUM HYDROXIDE 30 ML UDCUP PO PRN (11:21)
[2016-05-16] MEDS ORDERED: BISACODYL 10 MG SUPP PR PRN (11:21)
[2016-05-16] MEDS ORDERED: POLYETHYLENE GLYCOL 3350 17 GM PKT PO PRN (11:21)
[2016-05-16] MEDS ORDERED: LACTULOSE 20 GM/30 ML UDCUP PO PRN (11:21)
[2016-05-16] MEDS: BUDESONIDE 0.5 MG/2 ML AMPUL.NEB IH SCH ×2 (12:45→22:33)
--- NOTE | 2016-05-16 13:15 | HOSPPROG ---
Hospitalist Progress Note Assessment/Plan: Mr. De Oliveira is a 60-year-old male who was admitted for shortness of breath and cough. He has a history of hypertension and homelessness. This is my first encounter with this pt. Chart reviewed. D/W CM. #. Sepsis due to pneumococcal bacteremia * 2nd set of blood culture show no growth * on Levaquin * had been treated with penicillin #. multilobar pneumococcal pneumonia * now on Levaquin #. acute hypoxemic respiratory failure * much improved with use of steroids and lasix * now on room air at times / on 2 L this afternoon #. COPD with exacerbation * initially treated with IV steroids, now on oral steroids * steroids should be weaned off slowly. * Patient can follow up with Dr. Castro in the outpatient setting #. Hypertension * on diuretic but still high * add low dose Norvasc #. nicotine dependence * patient told me that he is more motivated to quit smoking since being so ill #. anemia/mild #. homelessness: not quite ready for the discharge. The group home could have a bed available for him at night but he has been quite ill. Plan: continue steroids and Levaquin. Can be discharged in the next 1-2 days. Subjective: Up in the chair. No specific issues. Has history of back pain. Objective: Vital Signs Temp Pulse Resp BP Pulse Ox 36.7 C 69 24 H 174/91 H 95 05/16/16 08:00 05/16/16 08:00 05/16/16 08:00 05/16/16 08:36 05/16/16 08:00 Microbiology 05/11/16 04:15 Blood Culture - Final Blood 05/11/16 04:35 Blood Culture - Final Blood Laboratory Results 05/14/16 04:32 05/14/16 04:32 05/15/16 05/16/16 05/17/16 05:59 05:59 05:59 Intake Total 250 Output Total 400 Balance -150 - Physical Exam Constitutional: no apparent distress, appears nourished, not in pain Eyes: PERRL, anicteric sclera, EOMI Ears, Nose, Mouth, Throat: moist mucous membranes, hearing normal, ears appear normal Cardiovascular: regular rate and rhythym, No JVD, No edema Respiratory: no respiratory distress, no rales or rhonchi, reduced air movement Gastrointestinal: normoactive bowel sounds, No tenderness, No ascites Skin: warm, normal color, No erythema Musculoskeletal: normal joint ROM, no joint effusions, generalized weakness Neurologic: AAOx3 Psychiatric: interacting appropriately, not anxious, not encephalopathic ICD10 Worksheet Patient Problems: Problems Problem Status Diagnosed Pneumonia Acute Sepsis Acute
[2016-05-16] MEDS: SENNOSIDES/DOCUSATE SODIUM TAB PO SCH (21:00)
[2016-05-16] MEDS: ZOLPIDEM TARTRATE 5 MG TAB PO PRN (22:46)
[2016-05-17] MEDS: IPRATROPIUM/ALBUTEROL 3 ML DEYVIAL IH SCH ×2 (05:56→09:36)
[2016-05-17] MEDS: oxyCODONE IR 5 MG TAB PO PRN ×2 (07:22→11:39)
[2016-05-17] MEDS: PROMETHAZINE HCL 25 MG/ML VIAL IVP PRN (07:22)
[2016-05-17 07:44] VITALS: BP 176/46; TEMP 97.4
[2016-05-17] MEDS: ENOXAPARIN 40 MG/0.4 ML SYR SC SCH (09:14)
[2016-05-17] MEDS: HYDROCHLOROTHIAZIDE 25 MG TAB PO SCH (09:14)
[2016-05-17] MEDS: ASPIRIN EC 81 MG TAB PO SCH (09:14)
[2016-05-17] MEDS: guaiFENesin 600 MG TAB.ER PO SCH (09:15)
[2016-05-17] MEDS: SENNOSIDES/DOCUSATE SODIUM TAB PO SCH (09:15)
[2016-05-17] MEDS: predniSONE 20 MG TAB PO SCH (09:15)
[2016-05-17] MEDS: BUDESONIDE 0.5 MG/2 ML AMPUL.NEB IH SCH (09:35)
[2016-05-17 09:40] VITALS: PULSE 72; RESP 18; O2SAT 93
[2016-05-17 10:48] LABS: PEUR A/G RATIO 1.09 % (()); PEUR ALBUMIN 52 % (()); PEUR ALPHA 1-GLOBULIN 21 % (()); PEUR ALPHA 2-GLOBULIN 12 % (()); PEUR BETA-GLOBULIN 9 % (()); PEUR GAMMA-GLOBULIN 6 % (()); PEUR IMPRESSION See Comments (())
--- NOTE | 2016-05-17 12:47 | GDS ---
[f rep st] DISCHARGE SUMMARY DISCHARGE DIAGNOSES: 1. Sepsis due to pneumococcal bacteremia. 2. Multilobe pneumococcal pneumonia. 3. Acute hypoxemic respiratory failure. 4. Chronic obstructive pulmonary disease with exacerbation. 5. Hypertension. 6. Nicotine dependence. 7. Anemia. 8. Homelessness. CONSULTATIONS: Multiple. STUDIES AND PROCEDURES DONE: Multiple. PHYSICAL EXAM: GENERAL: The patient is alert. VITAL SIGNS: Afebrile 36.3 pulse is 67, respiratory rate 16, blood pressure is 176/46, he is saturating 93% on room air. I have seen and evaluated the patient on the day of discharge. HOSPITAL COURSE: The patient is a 60-year-old male who presented to the emergency room with complain ts of shortness of breath. He was evaluated and diagnosed with. 1. Sepsis due to pneumococcal bacteremia. His repeat blood cultures have been negative. He is abhi elvie with antibiotic therapy. His bacteremia has resolved. 2. Multilobular pneumococcal pneumonia. He has been treated with antibiotic therapy and this condit ion is resolved. 3. Acute hypoxemic respiratory failure. The patient is not requiring supplemental oxygen at the [facility] of disposition. 4. Chronic obstructive pulmonary disease with exacerbation. He has been treated with steroids. The se will be weaned off at a slow rate. He has been provided a prescription for 20 mg daily and follow up with [facility] for further titration of his steroid treatment. 5. Hypertension. We will continue his antihypertensive. It is likely the patient will require furt her antihypertensive medications, but we will defer to primary care physician. 6. Anemia, this is stable. 7. Homelessness. The patient has had a bed arranged at the [facility]. I have discussed the patient's disposition with the case coordinator. He is in the work program at the [facility]. DISPOSITION: The patient will be discharged to the [facility]. Followup will be on 05/19/2016 at [facility] with further medication prescriptions provided including steroid taper and further narcoti cs pending their evaluation. I provided him a prescription for Norvasc 5 mg daily as well as prednis one 20 mg daily and Oxy IR 5 mg #10. There are no pending studies. Please refer to EMR form for oth er specific medication details. I spent greater than 35 minutes in the care, coordination and manage ment of this patient's disposition. /[id number]/MODL
== END 2016-05-17 13:29 | disposition home or self-care (01) | DRG 871 ==
LOC: F2N 11:22 → F3E 05-12 16:29
PROVIDERS: ADMIT Internal Medicine; ATTEND Hospitalist
DX: A40.3 Sepsis due to Streptococcus pneumoniae (principal); J13 Pneumonia due to Streptococcus pneumoniae; J96.01 Acute respiratory failure with hypoxia; J44.0 Chronic obstructive pulmonary disease with (acute) lower respiratory infection; J44.1 Chronic obstructive pulmonary disease with (acute) exacerbation; I10 Essential (primary) hypertension; F17.210 Nicotine dependence, cigarettes, uncomplicated; D64.9 Anemia, unspecified; Z59.0 Homelessness; I25.2 Old myocardial infarction; M54.10 Radiculopathy, site unspecified
CPT/HCPCS: 84166-90; 87449-90; 96365; 97116-GP; 97161-GP; 97165-GO; 97530-GO; 97535-GO; G0008; J0456; J0696; J1644; J1650; J2250; J2405; J2540; J2550; J3010; J3370; J7626; Q9967

== ENCOUNTER 2016-05-26 07:35 | Inpatient (IN) | payer MEDICAID ==
--- NOTE | 2016-05-26 07:44 | EDPHY ---
H & P Time Seen by Provider: 05/26/16 07:41 - Medical/Surgical History Hx Asthma: No Hx Chronic Respiratory Disease: No Hx Diabetes: No Hx Cardiac Disease: No Hx Renal Disease: No Hx Cirrhosis: No Hx Alcoholism: No Hx HIV/AIDS: No Hx Splenectomy or Spleen Trauma: No Other PMH: HTN, Rt TKA, Lt patella surgery - Social History Smoking Status: Current every day smoker Allergies/Adverse Reactions: No Known Allergies Allergy (Unverified 05/09/16 07:29) Home Medications: Medication Instructions Recorded Hydrochlorothiazide [HCTZ (*)] 25 mg PO DAILY 05/09/16 Acetaminophen [Tylenol 325mg (*)] 650 mg PO Q4HRS PRN #0 tab 05/17/16 Aspirin EC [Aspirin EC 81 mg (*)] 81 mg PO DAILY #0 tab 05/17/16 Polyethylene Glycol 3350 [Miralax 17 gm PO DAILY PRN #0 pkt 05/17/16 17 gm (*)] Sennosides/Docusate Sodium 1 - 2 tab PO BID #0 tab 05/17/16 [Senokot-S] Zolpidem Tartrate [Ambien 5MG (*)] 10 mg PO HS PRN #0 tab 05/17/16 amLODIPine BESYLATE [Norvasc 2.5 5 mg PO DAILY #30 tab 05/17/16 mg (*)] oxyCODONE IR [Oxycodone Ir (*)] 5 - 10 mg PO Q3HRS PRN #10 tab 05/17/16 predniSONE 20 mg PO DAILY #2 tablet 05/17/16 Medical Decision Making ED Course/Re-evaluation: CHIEF COMPLAINT: Shortness of breath, cough. HISTORY OF PRESENT ILLNESS: This is a 60-year-old male with a history of COPD and pneumonia presenting via EMS from the [facility] [place] [facility] for shortness of breath, lethargy, and cough. He was seen in the ER 2 weeks ago for similar symptoms and admitted for pneumonia and sepsis. His oxygen saturation was 83% on room air at that time. Today his room air saturation is 53% on presentation. He is confused and disoriented, unable to answer basic questions. REVIEW OF SYSTEMS: Unobtainable. PHYSICAL EXAM: HR, BP, O2 Sat, RR. Temp noted General Appearance: Alert, well hydrated, appropriate, and non-toxic appearing. Head: Atraumatic without scalp tenderness or obvious injury Eyes: Pupils equal, round, reactive to light and accommodation, EOMI, no trauma , no injection. Ears: Clear bilaterally, no perforation, normal landmarks Nose: Atraumatic, no rhinorrhea, clear. Throat: There is no erythema or exudates, no lesions, normal tonsils, mucus membranes moist. Neck: Supple, 2+ carotid upstroke, nontender, no lymphadenopathy. Respiratory: Coarse diffuse rhonchi and decreased breath sounds bilaterally. No retractions, no distress, no wheezes, and no accessory muscle use. Lungs are clear to auscultation bilaterally. Cardiovascular: Regular rate and rhythm, no murmurs, rubs, or gallops. Bilateral carotid, radial, dorsalis pedis, and posterior tibial pulses intact. Good capillary refill all extremities. Gastrointestinal: Abdomen is soft, nontender, non-distended, no masses, no rebound, no guarding, no peritoneal signs. Musculoskeletal: Normal active ROM of all extremities, atraumatic. Neurological: Alert, appropriate, and interactive. The patient has normal DTRs and non-focal cranial nerves, motor, sensory, and cerebellar exam. Skin: No rashes, good turgor, no nodules on palpation. Past medical history:COPD, pneumonia. Family history:Non-contributory. Social history:Homeless. DIAGNOSTICS/PROCEDURES/CRITICAL CARE TIME: Procedure: Rapid sequence intubation. Indication for the procedure was hypoxemia. The patient was preoxygenated with 100% oxygen by face mask. The patient was given the following IV medications: 100mg IV Succinylcholine and 300mg IV Ketamine. The patient was orally endotracheally intubated with a 8.0 ETT. In line stabilization was performed during the procedure. Tracheal intubation was confirmed with misting on the tube ; breath sounds were auscultated equally bilaterally; appropriate color change with [place] End Tidal CO2 detector. Chest X-ray shows ETT in good position. The procedure was performed by myself, Dr. Fuentes. Procedure: Ultrasound guidance. Using the linear probe covered in a sterile sheath, a short axis of the vein was obtained. The vein was completely compressible and was identified as separate from the adjacent non-compressible arterial structure. Under real-time guidance, the introducer needle was observed up to the vein, and then punctured it. Indication: sepsis, poor vascular access. A timeout was observed. Full maximal sterile barrier technique was used including cap, gown, sterile gloves, large sheet, hand washing and chlorhexidine prep. The area was anesthetized with 1% lidocaine. A 7 Maltese triple lumen was placed in the right internal jugular vein using standard Seldinger technique. There were no complications. Blood return low pressure, dark blood. Patient tolerated procedure well. CXR results: Appropriate line placement, and no pneumothorax. Xray was interpreted by myself. Radiologist interpretation is pending. The procedure was performed by myself, Dr. Fuentes. Study: PA and Lateral Chest X-ray Indication: SOB Results: I viewed the images myself on the PACS system. My interpretation of the images is: large bilateral pneumonia. The radiologist interpretation is pending at the time of this dictation. The 12 lead EKG was interpreted by myself. See hard copy and/or "tracemaster" electronic copy for interpretation. Sinus tachycardia. I spent a total of 60 minutes of critical care time including but not limited to obtaining history, performing a physical exam, ordering interventions and the bedside monitoring of those interventions, collecting and interpreting tests and discussion with consultants but not including time spent performing procedures. DIFFERENTIAL DIAGNOSIS: The differential diagnosis for the patient's shortness of breath and hypoxemia included but was not limited to pneumonia, myocardial infarction, acute mountain sickness, high altitude pulmonary edema, congestive heart failure, and pulmonary embolus. MEDICAL DECISION MAKING: This is a 60-year-old homeless male presenting for shortness of breath and cough. He was in the emergency department 2 weeks ago for similar symptoms and hypoxemia and admitted for pneumonia. Today his oxygen saturation on arrival by EMS is 53%. He is profoundly confused and lethargic, probably due to long periods of hypoxemia. He was placed on 15L rebreather on arrival to the hospital and his saturation increased to 86%. Because of his hypoxemia and obvious continued sepsis, intubation and central line placement were indicated. An IV was established and labs ordered. A portable chest x-ray was obtained that showed bilateral infiltrates. RT was paged and arrived at bedside to assist with the intubation. 300mg IV Ketamine and 100mg IV Succinylcholine was administered for sedation. 1gm IV Invanz administered after tube placement. The patient's oxygen saturation increased to 92% after intubation. His blood pressure remained stable at 86/53. Central line placed under ultrasound guidance after intubation. An additional 100mg IV Ketamine and 200mg IV Succinylcholine were administered for central line placement. A third x-ray was obtained post central line placement. He received a full fluid bolus to little improvement. 0855: Consulted with Shilpa Hernandez, hospitalist. She accepts admission for Dr. Roth to the ICU. Patient placed on Propofol drip for sedation with Levophed. 0919: Dr. Roth at bedside. Patient's pressure after Propofol 53/42. 1ml Phenylephrine pushed for hypotension. His pressure increased to 147 systolic. He was sent to the floor at that time. - Data Points Laboratory Results: Laboratory Results 05/26/16 07:50 05/26/16 07:50 05/26/16 05/26/16 07:58 07:50 WBC 8.59 10^3/uL (3.80-9.50) RBC 4.11 L 10^6/uL (4.40-6.38) Hgb 12.7 L g/dL (13.7-17.5) POC Hgb 13.3 L gm/dL (14.5-17.3) Hct 39.2 L % (40.0-51.0) POC Hct 39 L % (42.8-50.6) MCV 95.4 fL (81.5-99.8) MCH 30.9 pg (27.9-34.1) MCHC 32.4 g/dL (32.4-36.7) RDW 14.7 % (11.5-15.2) Plt Count 421 H 10^3/uL (150-400) MPV 8.7 fL (8.7-11.7) Neut % (Auto) 92.4 H % (39.3-74.2) Lymph % (Auto) 4.8 L % (15.0-45.0) [place] % (Auto) 2.4 L % (4.5-13.0) Eos % (Auto) 0.0 L % (0.6-7.6) Baso % (Auto) 0.2 L % (0.3-1.7) Nucleat RBC Rel Count 0.0 % (0.0-0.2) Absolute Neuts (auto) 7.93 H 10^3/uL (1.70-6.50) Absolute Lymphs (auto) 0.41 L 10^3/uL (1.00-3.00) Absolute Monos (auto) 0.21 L 10^3/uL (0.30-0.80) Absolute Eos (auto) 0.00 L 10^3/uL (0.03-0.40) Absolute Basos (auto) 0.02 10^3/uL (0.02-0.10) Absolute Nucleated RBC 0.00 10^3/uL (0-0.01) Immature Gran % 0.2 % (0.0-1.1) Seg Neutrophils % 18 % Band Neutrophils % 71 % Lymphocytes % 5 % Metamyelocytes % 4 % Myelocytes % 2 % Immature Gran # 0.02 10^3/uL (0.00-0.10) Absolute Seg Neuts 1.55 L 10^/uL (1.70-6.50) Absolute Band Neuts 6.10 H 10^3/uL (0.00-0.70) Absolute Lymphocytes 0.43 L 10^3/uL (1.00-3.00) Absolute Metamyelocyte 0.34 H 10^3/mL (0.00-0.00) Absolute Myelocytes 0.17 H 10^3/mL (0.00-0.00) RBC/WBC/PLT Morphology NORMAL (NORMAL) Platelet Estimate INCREASED H (ADEQ) Smear Review By Pending PT 13.6 SEC (12.0-15.0) INR 1.05 (0.83-1.16) APTT 31.4 SEC (23.0-38.0) VBG Lactic Acid 3.2 H mmol/L (0.7-2.1) POC Sodium 137 mEq/L (134-144) Sodium 137 mEq/L (134-144) POC Potassium 4.6 mEq/L (3.3-5.0) Potassium 5.0 mEq/L (3.5-5.2) POC Chloride 99 mEq/L (96-108) Chloride 103 mEq/L (97-110) Carbon Dioxide 26 mEq/l (22-31) Anion Gap 8 mEq/L (8-16) POC BUN 32 H mg/dL (7-23) BUN 33 H mg/dL (7-23) Creatinine 1.9 H mg/dL (0.7-1.3) POC Creatinine 2.0 H mg/dL (0.8-1.5) Estimated GFR 36 Glucose 110 H mg/dL (70-100) POC Glucose 115 H mg/dL (70-100) Calcium 8.1 L mg/dL (8.5-10.4) Total Bilirubin 0.6 mg/dL (0.1-1.4) Point of Care Test Results: 05/26/16 07:58 POC Sodium 137 POC Potassium 4.6 POC Chloride 99 POC BUN 32 H POC Creatinine 2.0 H POC Glucose 115 H Departure - Departure Disposition: [facility] Inpatient Acute Clinical Impression: Pneumonia, Septic shock Condition: Fair Report Scribed for: Steven Fuentes Report Scribed by: Epi Jenkins Date of Report: 05/26/16 Time of Report: 08:17
[2016-05-26] MEDS ORDERED: KETAMINE 100 MG/10 ML SYR IVP ONE ×4 (08:01→10:58)
[2016-05-26] MEDS ORDERED: PHENYLEPHRINE 10 MG/ML SDV ONE (08:04)
[2016-05-26 08:09] LABS: % IMMATURE GRANULYOCYTES 0.2 % (0.0-1.1); ABSOLUTE IMMATURE GRANULOCYTES 0.02 10^3/uL (0.00-0.10); ADD DIFF? NO; ADD MORPH? NO; ADD SCAN? YES; ATYPICAL LYMPHOCYTE FLAG 0 (0-99); FRAGMENT RBC FLAG 0 (0-99); HEMATOCRIT 39.2 % (40.0-51.0); HEMOGLOBIN 12.7 g/dL (13.7-17.5); LIPEMIA HEMOLYSIS FLAG 80 (0-99); MEAN CELL HEMOGLOBIN 30.9 pg (27.9-34.1); MEAN CELL HEMOGLOBIN CONCENTR. 32.4 g/dL (32.4-36.7); MEAN CELL VOLUME 95.4 fL (81.5-99.8); MEAN PLATELET VOLUME 8.7 fL (8.7-11.7); PLATELET CLUMPS FLAG 0 (0-99); PLATELET COUNT 421 10^3/uL (150-400); RED BLOOD CELL COUNT 4.11 10^6/uL (4.40-6.38); RED CELL DISTRIBUTION WIDTH 14.7 % (11.5-15.2)
[2016-05-26 08:11] LABS: LEFT SHIFT FLG 300 (0-99)
[2016-05-26 08:19] LABS: INR 1.05 (0.83-1.16); PROTIME(PATIENT) 13.6 SEC (12.0-15.0)
[2016-05-26 08:20] LABS: APTT 31.4 SEC (23.0-38.0)
--- NOTE | 2016-05-26 08:20 | DX ---
Portable Chest, Single View 7:58 AM Hours Indication: Unresponsive. Patient needs sepsis criteria. Comparison: May 15, 2016 Findings: Dense bilateral confluent airspace consolidation has developed throughout the right and, to a lesser degree, the left lung with relative sparing of the subpleural distribution. Heart size is n ormal. Mild diffuse interstitial edema. Impression: New confluent airspace consolidation either represents bronchopneumonia, acute alveolar i njury, or aspiration pneumonia.
[2016-05-26 08:21] LABS: ANION GAP 8 mEq/L (8-16); BILIRUBIN,TOTAL 0.6 mg/dL (0.1-1.4); CALCIUM 8.1 mg/dL (8.5-10.4); CARBON DIOXIDE 26 mEq/l (22-31); CHLORIDE 103 mEq/L (97-110); CREATININE 1.9 mg/dL (0.7-1.3); GLOMERULAR FILTRATION RATE 36; GLUCOSE 110 mg/dL (70-100); SODIUM 137 mEq/L (134-144)
[2016-05-26] MEDS ORDERED: ERTAPENEM 1 GM in NS 100 ML IV ONE (08:21)
[2016-05-26 08:28] LABS: SCAN POSITIVE
[2016-05-26] MEDS ORDERED: KETAMINE 500 MG/10 ML VIAL IVP ONE (08:30)
[2016-05-26 08:32] LABS: PLATELET ESTIMATE INCREASED (ADEQ)
[2016-05-26] MEDS ORDERED: SUCCINYLCHOLINE CHLORIDE*ANESTHESIA ONLY*200 MG/10 ML SYR IVP ONE ×2 (08:41→10:51)
[2016-05-26] MEDS ORDERED: DOPamine/DEXTROSE/250 ML BAG IV ONE (08:44)
[2016-05-26] MEDS ORDERED: NS 1,000 ML BAG *FOR SEPSIS ORDER SET ONLY IV ONE (08:49)
--- NOTE | 2016-05-26 08:52 | DX ---
Portable Chest at 821 hours History: Intubated ICU patient. Comparison: Portable chest May 26, 2016, CT chest May 12, 2016. Findings: Endotracheal tube tip is 2.5 cm above the darin. There is no significant change in bilater al perihilar consolidation, right greater than left, with relative sparing of the periphery of the yi ngs. There is no pneumothorax. Borderline cardiomegaly is stable. The right costophrenic angle is exc luded from the study. The visible bones are stable. Impression: 1. Endotracheal tube tip in good position. 2. Stable multifocal consolidation, which could represent pneumonia and/or pulmonary edema.
[2016-05-26] MEDS ORDERED: NOREPINEPHRINE BITARTRATE 4 MG in D5W 500 ML IV ONE (08:59)
[2016-05-26] MEDS ORDERED: PROPOFOL/EMULSION 500 MG/50 ML BOTTLE IV ONE (09:01)
[2016-05-26] MEDS ORDERED: PROPOFOL/EMULSION 1,000 MG/100 ML BOTTLE IV ONE (09:04)
[2016-05-26 09:09] LABS: LACGHOST ORDER
--- NOTE | 2016-05-26 09:14 | CPEKG ---
Heart Rate: 105 RR Interval: 571 P-R Interval: 148 QRSD Interval: 84 QT Interval: 368 QTC Interval: 487 P Vanleer: 63 QRS Vanleer: -65 T Wave Vanleer: -46 EKG Severity - ABNORMAL ECG - EKG Impression: SINUS TACHYCARDIA EKG Impression: LEFT ANTERIOR FASCICULAR BLOCK EKG Impression: ANTERIOR INFARCT, AGE INDETERMINATE EKG Impression: NONSPECIFIC T ABNORMALITIES, INFERIOR LEADS EKG Impression: BORDERLINE PROLONGED QT INTERVAL Electronically Signed By: Steven Fuentes 26-May-2016 13:33:18
[2016-05-26] MEDS ORDERED: PIPERACILLIN/TAZO 4.5 GM/DEX 100 ML IV ONE (09:24)
[2016-05-26 09:26] LABS: BASE EXCESS -6.5 mEq/L (-2.5-2.5); BICARBONATE 21 mEq/L (22-26); MEASURED OXYGEN SATURATION 95 % (92-95); O2 CONCENTRATIION 100 % (0-100); P/F RATIO 91 RATIO; PCO2 51 mmHg (34-38); PO2 91 mmHg (65-75); TCO2 22 mEq/L (23-27)
[2016-05-26 09:27] LABS: ASSIST CONTROL YES; TOTAL RATE 14
--- NOTE | 2016-05-26 09:29 | DX ---
Portable Chest, Single View 9:01 AM Hours Indication: Central line placement. Comparison: Portable chest from 8:21 AM today Findings: Since less than one hour prior, a right IJ central venous line has been placed with the tip in the superior vena cava. No pneumothorax. The positioning of the ET tube and bilateral confluent a irspace consolidation is unchanged. Impression: New well-positioned right IJ central venous line. No pneumothorax.
[2016-05-26] MEDS ORDERED: PHENYLEPHRINE HCL 100 MCG/ML SYR IVP ONE (09:30)
[2016-05-26] MEDS ORDERED: [UNRECOGNIZED DRUG - SUPPLY] MISC ONE (09:34)
[2016-05-26] MEDS ORDERED: PROPOFOL/EMULSION 50 ML IV ONE (09:35)
[2016-05-26] MEDS ORDERED: ACETAMINOPHEN 650 MG SUPP PR PRN (09:49)
[2016-05-26] MEDS ORDERED: ONDANSETRON DISINTEGRATING 4 MG TAB PO PRN (09:49)
[2016-05-26] MEDS ORDERED: ONDANSETRON 4 MG/2 ML VIAL IVP PRN (09:49)
[2016-05-26] MEDS ORDERED: LORazepam 2 MG/ML INJ IVP PRN (09:49)
[2016-05-26] MEDS ORDERED: NOREPINEPHRINE BITARTRATE 4 MG in D5W 500 ML IV SCH ×2 (10:00)
[2016-05-26] MEDS ORDERED: SUCCINYLCHOLINE CHLORIDE 200 MG/10 ML VIAL IVP ONE (10:11)
--- NOTE | 2016-05-26 10:40 | GHP ---
[f rep st] HISTORY AND PHYSICAL DATE OF ADMISSION: 05/26/2016 DATE OF EVALUATION: 05/26/2016 HISTORY OF PRESENT ILLNESS: The patient is a 60-year-old gentleman with a history of COPD and homele ssness, who was recently admitted to the hospital with strep pneumo bacteremia and community-acquired pneumonia, who presents with mental status changes and obtundation. In the emergency department, he was found to be obtunded, hypotensive, with bilateral airspace disease and was intubated for hypoxia , as well as airway protection. He meets the definition for sepsis. The patient is unable to provide much history to me given his intubated status, but according to the ER, it sounds like his friends in the homeless half-way called the ER on his behalf given his concern for him not being himself. PAST MEDICAL HISTORY: Prior to last week's admission, his past medical history is notable for scolio sis, chronic back pain, neuropathic pain, hypertension, and likely COPD. During that hospitalization , he had an echocardiogram, which showed elevated pulmonary artery pressures consistent with pulmonar y hypertension. His left ventricular function and valvular function were essentially normal. In the emergency department, the patient received ertapenem. He became hypotensive with the administ ration of propofol; that responded to the push of phenylephrine. I have discussed the case with Dr. David Michaels and Dr. Steven Fuentes. I personally interpreted his ches t x-ray myself. REVIEW OF SYSTEMS: Complete 10-point review of systems attempted but unable to be conducted given hi s obtundation. PAST MEDICAL HISTORY: 1. COPD. 2. Pulmonary hypertension. 3. Hypertension. ALLERGIES: No known drug allergies. HOME MEDICATIONS: His recent discharge includes prednisone, oxycodone, amlodipine, Ambien, senna, Mi raLAX, hydrochlorothiazide, aspirin, Tylenol. It sounds like he did get a flu shot this year. He wa s influenza negative during his last hospitalization. SOCIAL HISTORY: Homeless, tobacco use, minimal alcohol use, marijuana. FAMILY HISTORY: Parents . PHYSICAL EXAM: VITAL SIGNS: Presenting vitals, the patient has tachycardia, became hypotensive into the 60s over 40s. He is hypoxic on room air, and he is afebrile. GENERAL: Intubated, sedated. HEENT: Pupils are pinpoint, but reactive. Sclerae are anicteric. Oropharynx contains an ET tube wi th purulent material. NECK: Supple. There is a right IJ in place. LUNGS: Rhonchorous anterolaterally. HEART: S1, S2, tachycardic, with no significant murmurs. ABDOMEN: Soft, nontender, nondistended. EXTREMITIES: Lower extremities show muscle wasting. He has had evidence of knee surgery bilaterally . There is no edema. SKIN: Without rash. He has onychomycoses. NEUROLOGIC: The patient is intubated and sedated. LABS: White count is 8.6, hematocrit 39. Platelets are 421,000. Coags are essentially normal. ABG shows a pH of 7.23, with a pCO2 of 51, a pO2 of 91, serum bicarb of 22. Arterial lactate is 2.1, ve nous lactate 3.7. Sodium 137, potassium 5.0, chloride 103, bicarb 26, BUN 33, creatinine 1.9. His b aseline was less than 1 during his last hospitalization. Glucose is 110. As I mentioned, he was inf luenza negative and HIV negative during his last hospitalization. EKG, interpreted by me, shows left anterior fascicular block, in sinus tach at 105. There are no ST or T-wave changes. His chest x-ra y shows right greater than left bilateral airspace disease. He has a central line in the right inter nal jugular vein and an ET tube 35 mm above the darin. ASSESSMENT/PLAN: This 60-year-old gentleman presents with sepsis, recent pneumococcal bacteremia. 1. Sepsis. Most likely pathogen is recurrent pneumococcal. It was pansensitive during his last hos pitalization. At this point in time, given his critical illness, treat him with vancomycin and Zosyn , but I anticipate will have some micro to guide our therapy. It seems like during his last hospital ization, he did not receive a full 2-week course of antibiotics. 2. The patient is currently on pressors. He will be volume resuscitated. Will repeat a lactate by 3 p.m. I suspect it will decrease. 3. Acute kidney injury. This is likely secondary to sepsis and prerenal state. We will volume resu scitate and follow tomorrow. 4. Chronic obstructive pulmonary disease. The patient is discharged on steroids. At this point in time, he does not seem particularly obstructed. Given his 1-week course of steroids and hemodynamic instability, we will continue to give him some IV steroids today at a low dose. 5. Pulmonary hypertension secondary to pulmonary disease. We will follow. 6. Prophylaxis: Enoxaparin 30 daily. 7. Access: The patient has a central line. 8. Code status: Appears to be full. 9. Disposition: ICU, inpatient. /[id number]/MODL
[2016-05-26] MEDS: VANCOMYCIN HCL/NORMAL SALINE 250 ML IV SCH (10:46)
[2016-05-26] MEDS: methylPREDNISolone SOD SUCC 40 MG/ML VIAL IVP SCH ×3 (11:01→21:55)
[2016-05-26 11:23] LABS: COLOR YELLOW; LEUKOCYTE ESTERASE,URINE NEGATIVE (NEGATIVE); NITRITE,URINE NEGATIVE (NEGATIVE)
[2016-05-26 11:40] LABS: MUCUS TRACE /lpf (NONE-1+); RBC,URINE 15-25 /hpf (0-3)
[2016-05-26 12:04] LABS: ALBUMIN 2.4 g/dL (3.5-5.0); BILIRUBIN,TOTAL 0.5 mg/dL (0.1-1.4); BILIRUBIN-CONJUGATED 0.5 mg/dL (0.0-0.5); TOTAL PROTEIN 5.1 g/dL (6.3-8.2)
[2016-05-26] MEDS: PIPERACILLIN SODIUM/TAZOBACTAM 3.375 GM in D5W 50 ML IV SCH ×2 (12:05→18:35)
[2016-05-26] MEDS: CHLORHEXIDINE GLUCONATE 15 ML UDL PO SCH ×2 (12:11→21:55)
--- NOTE | 2016-05-26 13:50 | GCON ---
[f rep st] CONSULTATION CRITICAL CARE CONSULTATION DATE OF CONSULTATION: 05/26/2016 HISTORY OF PRESENT ILLNESS: The patient is a 60-year-old male with a history of probable COPD and recent pneumonia with sepsis and pneumococcal bacteremia. He was treated with penicillin, discharged on 05/17 on room air. He is homeless and was found to be confused by his roommates in his homeless correction and brought to the emergency department, where he was found to be severely hypoxic and required intubation at that time. His blood pressure was normal when he arrived; but shortly after intubation, his blood pressure was low. A central line was placed, and his blood pressure became even lower. He was given 1 dose of phenylephrine. A chest x-ray was performed, showing diffuse bilateral infiltrates, much worse on the right than the left, which is a similar distribution to his previous x-ray, only much worse at this time. He had no white count at the time but was thought to have pneumonia and septic shock and was brought to the intensive care unit. REVIEW OF SYSTEMS: Given the patient's inability to speak, a full review of systems was not able to be obtained. PAST MEDICAL HISTORY: Includes: 1. Pneumococcal pneumonia as described above, sepsis with bacteremia. 2. Probable COPD. 3. Hypertension. 4. Chronic low back pain. 5. He also had an elevated pulmonary artery pressure on an echocardiogram, but his chambers were of normal size and function and has no obvious sequela of pulmonary hypertension now. PAST SURGICAL HISTORY: Includes total knee arthroplasty and patellar surgery on the left. SOCIAL HISTORY: He is an ongoing smoker. No alcohol or IV drug use that we know of. He was tested for HIV at his last hospitalization. FAMILY HISTORY: Includes diabetes. MEDICATIONS: At this time include Tylenol, DuoNeb, Lovenox, Pepcid, Solu-Medrol , Zofran, norepinephrine, Zosyn, propofol, vancomycin, vasopressin. PHYSICAL EXAM: VITAL SIGNS: He was afebrile when he arrived in the ICU. Heart rate was 101, blood pressure 147/98, oxygen saturation 93% on the ventilator. GENERAL: He was ill appearing and cachectic, was awake and in some respiratory distress with frothy sputum coming from his endotracheal tube that was recently placed. HEENT: His pupils were equally round and reactive to light, nonicteric and noninjected. NECK: Supple without adenopathy or jugular vein distention. LUNGS: Breath sounds were coarse bilaterally. No obvious wheezing. HEART: Regular rate and rhythm without murmurs, rubs, gallops. ABDOMEN: Soft, nontender, and nondistended without hepatosplenomegaly. EXTREMITIES: No clubbing, cyanosis, or edema. NEUROLOGIC : Nonfocal, including cranial nerves and deep tendon reflexes. SKIN: Appeared warm and dry without evidence of rash. LABORATORY STUDIES/X-RAYS: Objective data includes the chest x-ray as described above. His white count was only 8.5, hematocrit was 39, platelets of 421. His most recent blood gas was at 0900, showing a pH of 7.23, pCO2 51, PO2 91, bicarb 22, saturation 95%, and that I believe was on his previous ventilator settings. INR was normal. Sodium was 137, potassium was 4.6, chloride 99, bicarb 21, BUN 32, creatinine 2.0, glucose 115, albumin was 2.4. BNP is pending at this time. LFTs were normal at about 8 o'clock. Urinalysis was essentially negative, say for a few red cells and some protein. ASSESSMENT/PLAN: 1. Acute respiratory failure with hypoxemia due to underlying pneumonia as well as chronic obstructive pulmonary disease. His chest x-ray does appear to have an acute respiratory distress syndrome-type picture, so I think that using a low tidal volume strategy of 6 mL/kg of ideal body weight is appropriate tidal volume for him, and we will increase his rate to about 20 and then recheck an arterial blood gas in the very near future to see that he has at the very least an acceptable pH and possibly permissive hypercapnia. We will also keep his plateau pressures less than 30 and use judicious PEEP with those in mind. 2. Probable recurrent pneumonia. It is possible he was not adequately treated at this time. We will follow up on his blood cultures. He is being treated with Zosyn and vancomycin at this time, and I would like to see a BNP to make sure that there are no other issues. 3. Septic shock. His blood pressure seems to be better right now. This is probably due to his underlying pneumonia. I would follow the sepsis protocol for him, using Levophed and vasopressin to maintain a mean arterial pressure of at least 65 and then check an icon to see if there are any further fluid challenges to be done. Again, we will follow up on his cultures and continue his vancomycin and Zosyn until further information. 4. Chronic obstructive pulmonary disease. I am not certain what his underlying function is like; but in the meantime, I would certainly give him bronchodilators and systemic steroids on top of the antibiotics and follow closely. 5. Acute kidney injury. His creatinine is at [address] will place a Chamberlain catheter, continue with IV fluids, and look at the urine electrolytes if it does not resolve fairly quickly. A total of about 45 minutes of critical care time was required for this patient. /[id number]/MODL MTDD
[2016-05-26] MEDS: FAMOTIDINE 20 MG/NACL 50 ML IV SCH ×2 (14:34→21:55)
[2016-05-26 14:45] LABS: BASE EXCESS -7.8 mEq/L (-2.5-2.5); BICARBONATE 19 mEq/L (22-26); MEASURED OXYGEN SATURATION 92 % (92-95); PCO2 45 mmHg (34-38); PO2 77 mmHg (65-75); TCO2 20 mEq/L (23-27)
[2016-05-26 14:47] LABS: ASSIST CONTROL YES; O2 CONCENTRATIION 100 % (0-100); P/F RATIO 77 RATIO
[2016-05-26 14:49] LABS: TOTAL RATE 21
[2016-05-26] MEDS ORDERED: INSULIN REGULAR HUMAN 100 UNIT in NS 100 ML IV SCH (15:00)
[2016-05-26] MEDS ORDERED: D50W 25 GM/50 ML SYR IVP PRN (15:00)
[2016-05-26] MEDS ORDERED: D5W 1,000 ML IV SCH (15:00)
[2016-05-26] MEDS ORDERED: PIPERACILLIN/TAZO 3.375 GM/DEX 50 ML IV SCH (15:00)
[2016-05-26] MEDS ORDERED: PIPERACILLIN SODIUM/TAZOBACTAM 3.375 GM in D5W 50 ML IV SCH (15:00)
[2016-05-26] MEDS: VASOPRESSIN/DEXTROSE 250 ML IV SCH (15:51)
[2016-05-26 17:33] LABS: HEMOGLOBIN A1C 6.2 % (4.0-6.0)
[2016-05-26] MEDS: PROPOFOL/EMULSION 100 ML IV SCH (22:02)
[2016-05-27] MEDS: PIPERACILLIN SODIUM/TAZOBACTAM 3.375 GM in D5W 50 ML IV SCH ×4 (00:07→18:28)
[2016-05-27 04:04] LABS: ADD MORPH? NO; ADD SCAN? YES; ATYPICAL LYMPHOCYTE FLAG 0 (0-99); FRAGMENT RBC FLAG 0 (0-99); HEMATOCRIT 34.6 % (40.0-51.0); HEMOGLOBIN 11.1 g/dL (13.7-17.5); LIPEMIA HEMOLYSIS FLAG 80 (0-99); MEAN CELL HEMOGLOBIN 30.8 pg (27.9-34.1); MEAN CELL HEMOGLOBIN CONCENTR. 32.1 g/dL (32.4-36.7); MEAN CELL VOLUME 96.1 fL (81.5-99.8); MEAN PLATELET VOLUME 8.8 fL (8.7-11.7); PLATELET CLUMPS FLAG 0 (0-99); PLATELET COUNT 344 10^3/uL (150-400); RED CELL DISTRIBUTION WIDTH 14.9 % (11.5-15.2)
[2016-05-27 04:16] LABS: INR 1.29 (0.83-1.16); PROTIME(PATIENT) 16.1 SEC (12.0-15.0)
[2016-05-27 04:19] LABS: ANION GAP 7 mEq/L (8-16); CALCIUM 6.9 mg/dL (8.5-10.4); CARBON DIOXIDE 21 mEq/l (22-31); CHLORIDE 105 mEq/L (97-110); CREATININE 1.5 mg/dL (0.7-1.3); GLOMERULAR FILTRATION RATE 47; GLUCOSE 149 mg/dL (70-100); LEFT SHIFT FLG 300 (0-99); POTASSIUM 5.6 mEq/L (3.5-5.2); SODIUM 133 mEq/L (134-144)
[2016-05-27 04:31] LABS: TROPONIN I 0.072 ng/mL (0-0.034)
[2016-05-27 04:43] LABS: ADD DIFF? YES; SCAN POSITIVE
[2016-05-27 04:47] LABS: TOXIC GRANULATION PRESENT; TOXIC VACUOLIZATION PRESENT
[2016-05-27 04:48] LABS: LARGE PLATELETS PRESENT; MACROCYTES 1+; PLATELET ESTIMATE ADEQUATE (ADEQ)
[2016-05-27 06:15] LABS: BASE EXCESS -8.4 mEq/L (-2.5-2.5); BICARBONATE 17 mEq/L (22-26); MEASURED OXYGEN SATURATION 96 % (92-95); PCO2 38 mmHg (34-38); PO2 95 mmHg (65-75); TCO2 18 mEq/L (23-27)
[2016-05-27 06:23] LABS: ASSIST CONTROL YES; END TIDAL CO2 33; O2 CONCENTRATIION 40 % (0-100); P/F RATIO 238 RATIO; TOTAL RATE 20
[2016-05-27] MEDS ORDERED: SODIUM BICARBONATE 150 MEQ in D5W 1,000 ML IV SCH (09:00)
[2016-05-27] MEDS: ENOXAPARIN 30 MG/0.3 ML SYR SC SCH (09:23)
[2016-05-27] MEDS: FAMOTIDINE 20 MG/NACL 50 ML IV SCH ×2 (09:24→20:08)
[2016-05-27] MEDS: methylPREDNISolone SOD SUCC 40 MG/ML VIAL IVP SCH ×2 (09:24→20:08)
[2016-05-27] MEDS: CHLORHEXIDINE GLUCONATE 15 ML UDL PO SCH ×2 (09:26→20:08)
[2016-05-27] MEDS: VANCOMYCIN HCL/NORMAL SALINE 250 ML IV SCH (09:27)
--- NOTE | 2016-05-27 10:12 | DX ---
Portable Chest, Single View 9:55 a.m. Hours Indication: Respiratory failure. Pneumonia. Comparison: Portable chest dated May 26, 2016 Findings: The ET tube and right IJ central venous line remain in good position. Confluent bilateral a irspace consolidation, worse right than left, has not significantly changed given differences in vent ilation. Heart size upper normal for portable technique. Impression: 1. Support devices remain in good position. 2. Bilateral confluent airspace consolidation has not significantly changed.
--- NOTE | 2016-05-27 10:12 | HOSPPROG ---
Hospitalist Progress Note Assessment/Plan: 60 yo M w recent admit w CAP an dstrep pneumo bacteremia readmitted w septic shock and strep bacteremia septic shock: off levophed, still on vaso has been volume resuscitated improving hemodynamically strep bacteremia: source is lungs dc vanc on zosyn ID to see, suspect will change to IV pcn elevated bnp: volume resuscitation likely cause not clinically in heart failure follow acute hypoxemic resp failure: attributable to airspace disease proph: lmwh hyperkalemia: likely 2/2 acidosis cr improving continue bicarb gtt code: full Subjective: tele: sinus (interp by me). case d/w dr rossi. decreased pressor requirement. blood cx growing strep Objective: Vital Signs Temp Pulse Resp BP Pulse Ox 37.3 C 81 20 114/76 99 05/27/16 06:00 05/27/16 06:00 05/27/16 06:00 05/27/16 06:00 05/27/16 06:00 Microbiology 05/26/16 20:20 - Final Sputum, Induced/Suctioned 05/26/16 08:57 Blood Panel (PCR) - Final Blood Streptococcus Laboratory Results 05/27/16 03:56 05/27/16 03:56 05/26/16 05/27/16 05/28/16 05:59 05:59 05:59 Intake Total 5972.1 Output Total 1025 Balance 4947.1 PT 16.1 SEC (12.0-15.0) H 05/27/16 03:56 INR 1.29 (0.83-1.16) H 05/27/16 03:56 - Physical Exam Constitutional: chronically ill appearing, No appears nourished Eyes: PERRL, anicteric sclera Ears, Nose, Mouth, Throat: moist mucous membranes, hearing normal Cardiovascular: regular rate and rhythym, no murmur, rub, or gallop, systolic murmur Respiratory: bronchial breath sounds, rhonchi, No no rales or rhonchi Gastrointestinal: normoactive bowel sounds, soft, non-tender abdomen, other ( stooling) Genitourinary: No arrington in urethra Skin: warm, normal color Musculoskeletal: full muscle strength, no muscle tenderness Neurologic: AAOx3, sensation intact bilaterally Psychiatric: interacting appropriately, not anxious ICD10 Worksheet Patient Problems: Problems Problem Status Diagnosed Pneumonia Acute Septic shock Acute
[2016-05-27] MEDS: PROPOFOL/EMULSION 100 ML IV SCH ×2 (11:37→18:39)
[2016-05-27 12:30] LABS: ANION GAP 9 mEq/L (8-16); CALCIUM 6.8 mg/dL (8.5-10.4); CARBON DIOXIDE 21 mEq/l (22-31); CHLORIDE 101 mEq/L (97-110); CREATININE 1.5 mg/dL (0.7-1.3); GLOMERULAR FILTRATION RATE 47; GLUCOSE 162 mg/dL (70-100); SODIUM 131 mEq/L (134-144)
[2016-05-27 12:31] LABS: BASE EXCESS -8.4 mEq/L (-2.5-2.5); BICARBONATE 17 mEq/L (22-26); MEASURED OXYGEN SATURATION 96 % (92-95); PCO2 33 mmHg (34-38); PO2 93 mmHg (65-75); TCO2 18 mEq/L (23-27)
[2016-05-27 12:32] LABS: ASSIST CONTROL YES; END TIDAL CO2 30; O2 CONCENTRATIION 40 % (0-100); P/F RATIO 233 RATIO; TOTAL RATE 20
--- NOTE | 2016-05-27 12:43 | GCON ---
[f rep st] CONSULTATION INFECTIOUS DISEASE CONSULT. DATE OF CONSULTATION: 05/27/2016 REFERRING PHYSICIAN: Anthony Roth MD REASON FOR CONSULTATION: To assist in the management of this 60-year-old male, well known to our service, readmitted for sepsis and probable aspiration event. PAST MEDICAL HISTORY: The patient is a 60-year-old gentleman, whose previous medical history is notable for the followin. Longstanding tobacco abuse/COPD. 2. Chronic homelessness. 3. Hypertension. 4. Chronic back pain. PAST SURGICAL HISTORY: Notable for a total knee arthroplasty on the right, and history of patellar removal on the left. HISTORY OF PRESENT ILLNESS: Mr. De Oliveira was recently hospitalized at [facility] from April through May 16, 2016. At that time he was admitted for pneumococcal pneumonia with bacteremia. He was treated initially with penicillin, and transitioned to oral levofloxacin upon discharge. However, it is unclear whether or not the patient received an actual prescription for levofloxacin/for the medication itself upon discharge. He was supposed to receive antibiotics for bacteremia through May 23, 2016. His hospitalization was notable for blood tests revealing HIV negativity, and no evidence of multiple myeloma or other monoclonal gammopathy. He cleared his blood cultures, and did quite well. The patient was discharged back to the [facility] senior care. Regarding his present issues, the patient re-presented to our emergency department yesterday morning through EMS from the homeless senior care for shortness of breath, lethargy and cough. His oxygenation status was 53% upon presentation. He was confused and disoriented. The patient was intubated and started on pressors, and transferred to the intensive care unit for further evaluation and treatment. A chest x-ray showed bilateral infiltrates. He was started on vancomycin and Zosyn. I am now asked to assist in his management. Blood cultures are now growing a Streptococcus, not pneumoniae, group a or group B. The patient is presently intubated and heavily sedated. Speaking with the patient's nurse, thankfully they have been able to wean him off one of two pressors. The patient's nurse reports that someone called to check on him earlier yesterday, and reported that the patient had "a choking event" at the senior care. REVIEW OF SYSTEMS: Is unobtainable as the patient is intubated and sedated. Previous medical history is as outlined above. ALLERGIES: No known drug allergies. PRESENT MEDICATIONS: 1. Solu-Medrol 40 mg q.12 hours. 2. Vancomycin was recently discontinued. (The patient received 1 dose) 3. He is also on Zosyn 3.375 g IV q.6 hours. 4. Propofol. 5. Vasopressin. SOCIAL HISTORY: The patient is chronically homeless. He smokes heavily, since he was a teenager. Apparently he has a history of alcohol use. Otherwise I cannot obtain a social history. FAMILY HISTORY: Not obtainable. PHYSICAL EXAM: VITAL SIGNS: T current is 37.4, T-max 38.9, heart rate 86, blood pressure 111/78, 98% on 40% FiO2. GENERAL/HEENT: A cachectic male, intubated and sedated, bilateral arcus senilis, pinpoint pupils. No scleral icterus or petechiae. I was able to open his mouth about 10 degrees. He has terrible dentition with extremely carious teeth, many teeth are missing. I was unable to do a thorough exam given the patient is intubated. NECK: Supple. CARDIOVASCULAR: S1 and S2 , I cannot appreciate any rubs, gallops or murmurs, but there are several adventitious sounds secondary to the ventilator. LUNGS: Coarse breath sounds and rales diffusely. ABDOMEN: Soft, no organomegaly or tenderness to palpation. Circumcised phallus. The patient has a Chamberlain catheter in place. EXTREMITIES: The patient has no clubbing, cyanosis or edema. The left knee is with evidence of chronic osteoarthritis but no erythema, warmth or effusion. SKIN: Warm and dry. No stigmata of endocarditis. LABORATORY DATA/MICROBIOLOGIC DATA: Blood cultures drawn on admission, 2 out of 2 bottles are growing, one has been identified in the PCR as a Streptococcus , not group A, group B or pneumococcus. The identification is pending. Blood cultures done May 11, 2016 show no growth. Blood cultures on May 09, 2016 grew Streptococcus pneumoniae sensitive to penicillin. White blood cell count is 17.5, hematocrit 34, platelet count of 344, 70% bands, BUN and creatinine are 37/1.5. Patient's baseline creatinine was 0.7 during his previous admission. Previous HIV antibody testing negative. RADIOGRAPHIC DATA: Chest x-ray shows bilateral infiltrates in multiple lung lobes. IMPRESSION: 60-year-old homeless male with chronic tobacco use, status post recent hospital admission for pneumococcal pneumonia and sepsis, now admitted for sepsis and probable aspiration event. I did call the microbiology lab; the streptococcus is presumptively felt to be Viridans strep. Given the patient's suboptimal dentition this is not a great surprise. I was unable to perform a thorough physical exam to evaluate for an active odontogenic infection--this will need to be done when he is ultimately extubated. No evidence of endocarditis. PLAN: 1. Continue Zosyn as is for now given recent hospitalization and concern for colonization of more resistant pathogens that could be contributing to his pneumonia. 2. Await final identification of Streptococcus in his blood. 3. Would repeat echocardiogram for completeness sake, although no stigmata of endocarditis on exam. 4. When the patient is clinically stable would obtain chest CT for further evaluation of lung parenchyma. 5. Status post recent HIV test, which was negative. 6. When the patient is extubated and awake, will ascertain whether or not he completed treatment with levofloxacin for recent pneumococcal sepsis, and whether not he received a prescription for the medication or the medication itself, as was requested by my colleague Dr. Sierra. Thank you very much for consulting Infectious Diseases. We will continue to follow this patient with you. /[id number]/MODL MTDD
[2016-05-27] MEDS: VASOPRESSIN/DEXTROSE 250 ML IV SCH (13:31)
--- NOTE | 2016-05-27 14:38 | PDINTPN ---
Veneer Puller Progress Note Assessment/Plan: Assessment/plan: 60 yo homeless M with history of etoh recently admitted to [facility] with Strep PNA and bacteremia treated with PCN. He was re-admitted 05/25 with respiratory failure and required ETT and pressors. His CXR showed increasing infiltrates in a similar pattern as previous, and his blood cultures have grown Strep again. * PNA which may have been exacerbated by inadequate duration of antibiotics. Likely pathogen is Strep since in Bcx. Previous CT without obvious obstructing lesion, but I agree with repeat film to evaluate. He may need bronchoscopy while on vent. Appreciate ID assistance. * Septic shock 2/2 # 1- continue support with pressors as needed. NICOM showed no significant delta SVI on 05/26. * URMILA- 2/2 above. UOP is adequate at the moment. Starting HCO3 drip 2/2 mild hyperkalemia as well. Likely hypotension-induced ATN. * Respiratory failure with hypoxia- vent day #2. FiO2 coming down and remains stable. * Non-AG acidosis likely 2/2 NS load 05/26. Should resolve on its own. Doubt RTA , diarrhea, etc. * Troponin- small leak. Not likely ACS, though BNP of 16,000 is excessive. EF 60 % on echo 05/09/16 (no veggies reported at that time). * critical care time 45 minutes Objective: Vital Signs Temp Pulse Resp BP Pulse Ox 37.4 C 86 20 111/78 98 05/27/16 10:00 05/27/16 10:00 05/27/16 10:00 05/27/16 10:00 05/27/16 10:00 Microbiology 05/26/16 20:20 - Final Sputum, Induced/Suctioned 05/26/16 08:57 Blood Panel (PCR) - Final Blood Streptococcus Laboratory Results 05/27/16 03:56 05/27/16 12:06 05/26/16 05/27/16 05/28/16 05:59 05:59 05:59 Intake Total 5972.1 Output Total 1025 Balance 4947.1 PT 16.1 SEC (12.0-15.0) H 05/27/16 03:56 INR 1.29 (0.83-1.16) H 05/27/16 03:56 Physical Exam - Physical Exam General Appearance: no apparent distress, other (sedated on vent. Thin and cachectic appearing) EENT: PERRL/EOMI, pharynx normal, ET tube Neck: full range of motion, supple Respiratory: lungs clear, normal breath sounds, No respiratory distress, No rales, No rhonchi Cardiac/Chest: normal peripheral pulses, regular rate, rhythm, No edema Abdomen: normal bowel sounds, non-tender, soft Skin: normal color, warm/dry, No rash Lymphatic: no adenopathy Extremities: normal range of motion, No pedal edema ICD10 Worksheet Patient Problems: Problems Problem Status Diagnosed Pneumonia Acute Septic shock Acute
[2016-05-28] MEDS: PIPERACILLIN SODIUM/TAZOBACTAM 3.375 GM in D5W 50 ML IV SCH ×4 (00:09→18:34)
[2016-05-28] MEDS: PROPOFOL/EMULSION 100 ML IV SCH ×2 (01:54→07:57)
[2016-05-28 04:28] LABS: ABSOLUTE NRBC COUNT 0.04 10^3/uL (0-0.01); ADD MORPH? NO; ADD SCAN? YES; ATYPICAL LYMPHOCYTE FLAG 0 (0-99); FRAGMENT RBC FLAG 0 (0-99); HEMATOCRIT 28.4 % (40.0-51.0); HEMOGLOBIN 9.4 g/dL (13.7-17.5); LIPEMIA HEMOLYSIS FLAG 80 (0-99); MEAN CELL HEMOGLOBIN 30.1 pg (27.9-34.1); MEAN CELL HEMOGLOBIN CONCENTR. 33.1 g/dL (32.4-36.7); MEAN PLATELET VOLUME 9.3 fL (8.7-11.7); NRBC-AUTO% 0.2 % (0.0-0.2); PLATELET CLUMPS FLAG 10 (0-99); PLATELET COUNT 260 10^3/uL (150-400); RED BLOOD CELL COUNT 3.12 10^6/uL (4.40-6.38); RED CELL DISTRIBUTION WIDTH 14.6 % (11.5-15.2)
[2016-05-28 04:29] LABS: LEFT SHIFT FLG 300 (0-99)
[2016-05-28 04:53] LABS: BASE EXCESS -1.5 mEq/L (-2.5-2.5); BICARBONATE 24 mEq/L (22-26); MEASURED OXYGEN SATURATION 96 % (92-95); PCO2 50 mmHg (34-38); PO2 96 mmHg (65-75); TCO2 26 mEq/L (23-27)
[2016-05-28 04:54] LABS: ANION GAP 7 mEq/L (8-16); CALCIUM 6.9 mg/dL (8.5-10.4); CARBON DIOXIDE 26 mEq/l (22-31); CHLORIDE 104 mEq/L (97-110); CREATININE 1.2 mg/dL (0.7-1.3); GLOMERULAR FILTRATION RATE > 60; GLUCOSE 161 mg/dL (70-100); POTASSIUM 3.9 mEq/L (3.5-5.2); SODIUM 137 mEq/L (134-144)
[2016-05-28 04:55] LABS: CPAP YES; O2 CONCENTRATIION 40 % (0-100); P/F RATIO 240 RATIO; PATIENT RATE 15; PRESSURE SUPPORT 7
[2016-05-28 05:01] LABS: ADD DIFF? YES; SCAN POSITIVE
[2016-05-28 05:05] LABS: LARGE PLATELETS PRESENT; PLATELET ESTIMATE ADEQUATE (ADEQ); TOXIC VACUOLIZATION PRESENT
[2016-05-28] MEDS: FAMOTIDINE 20 MG/NACL 50 ML IV SCH ×2 (07:57→20:11)
[2016-05-28] MEDS: ENOXAPARIN 30 MG/0.3 ML SYR SC SCH (07:57)
[2016-05-28] MEDS: CHLORHEXIDINE GLUCONATE 15 ML UDL PO SCH (07:57)
[2016-05-28] MEDS: methylPREDNISolone SOD SUCC 40 MG/ML VIAL IVP SCH ×3 (07:58→20:11)
--- NOTE | 2016-05-28 09:03 | HOSPPROG ---
Hospitalist Progress Note Assessment/Plan: 60 yo M w recent admit w CAP an dstrep pneumo bacteremia readmitted w septic shock and strep bacteremia septic shock: off lpressors septic physiology has resolved strep bacteremia: interestingly not strep pneumo, which he had two weeks ago continue zosyn suspected oral source SVT: follow elevated bnp: volume resuscitation likely cause not clinically in heart failure follow acute hypoxemic resp failure: attributable to airspace disease may be able to extubate today wean steroids proph: lmwh hyperkalemia: lreslved URMILA: improving code: full Subjective: case d/w dr rossi. tele: svt overnight- self limited (interp by me) Objective: Vital Signs Temp Pulse Resp BP Pulse Ox 36.4 C 69 14 95/64 L 97 05/28/16 06:00 05/28/16 06:00 05/28/16 06:00 05/28/16 06:00 05/28/16 06:00 Microbiology 05/26/16 08:57 Blood Panel (PCR) - Final Blood Streptococcus 05/26/16 20:20 - Final Sputum, Induced/Suctioned Laboratory Results 05/28/16 04:00 05/28/16 04:00 05/27/16 05/28/16 05/29/16 05:59 05:59 05:59 Intake Total 5972.1 3773.2 Output Total 1025 2825 Balance 4947.1 948.2 PT 16.1 SEC (12.0-15.0) H 05/27/16 03:56 INR 1.29 (0.83-1.16) H 05/27/16 03:56 - Physical Exam Constitutional: other (intubated, light sedation, opens eyes to command) Eyes: PERRL, anicteric sclera Ears, Nose, Mouth, Throat: moist mucous membranes, hearing normal Cardiovascular: regular rate and rhythym, no murmur, rub, or gallop Respiratory: other (rhoncorous R>L) Gastrointestinal: normoactive bowel sounds, soft, non-tender abdomen Genitourinary: no bladder fullness, arrington in urethra Skin: warm, normal color Musculoskeletal: full muscle strength Neurologic: No AAOx3 Psychiatric: not anxious, No interacting appropriately ICD10 Worksheet Patient Problems: Problems Problem Status Diagnosed Pneumonia Acute Septic shock Acute
[2016-05-28 10:03] LABS: BICARBONATE 26 mEq/L (22-26); MEASURED OXYGEN SATURATION 96 % (92-95); PCO2 51 mmHg (34-38); PO2 96 mmHg (65-75); TCO2 27 mEq/L (23-27)
[2016-05-28 10:04] LABS: CPAP YES; END TIDAL CO2 46; O2 CONCENTRATIION 40 % (0-100); P/F RATIO 240 RATIO; PATIENT RATE 20; PRESSURE SUPPORT 5
[2016-05-28] MEDS: IPRATROPIUM/ALBUTEROL 3 ML DEYVIAL IH PRN ×2 (12:44→17:50)
--- NOTE | 2016-05-28 12:56 | PDINTPN ---
Manager Home Improvement Progress Note Assessment/Plan: Assessment/plan: 60 yo homeless M with history of etoh recently admitted to [facility] with Strep PNA and bacteremia treated with PCN. He was re-admitted 05/25 with respiratory failure and required ETT and pressors. His CXR showed increasing infiltrates in a similar pattern as previous, and his blood cultures have grown Strep again. * PNA which may have been exacerbated by inadequate duration of antibiotics. Likely pathogen is Strep since in Bcx. Previous CT without obvious obstructing lesion, but I agree with repeat film to evaluate. Appreciate ID assistance. * Septic shock 2/2 # 1- Resolved and off pressors * URMILA- 2/2 above. UOP is adequate at the moment. Starting HCO3 drip 2/2 mild hyperkalemia as well. Likely hypotension-induced ATN. * Respiratory failure with hypoxia- Self extubated today though he was weaning well. No stridor post ETT. * Non-AG acidosis likely 2/2 NS load 05/26. * Troponin- small leak. Not likely ACS, though BNP of 16,000 is excessive. EF 60 % on echo 05/09/16 (no veggies reported at that time). * critical care time 45 minutes 05/28/16 12:55 05/28/16 12:57 Objective: Vital Signs Temp Pulse Resp BP Pulse Ox 37.4 C 89 27 H 130/78 H 97 05/28/16 12:00 05/28/16 12:00 05/28/16 12:00 05/28/16 12:00 05/28/16 12:00 Microbiology 05/26/16 20:20 - Final Sputum, Induced/Suctioned 05/26/16 08:57 Blood Panel (PCR) - Final Blood Streptococcus Laboratory Results 05/28/16 04:00 05/28/16 04:00 05/27/16 05/28/16 05/29/16 05:59 05:59 05:59 Intake Total 5972.1 3773.2 Output Total 1025 2825 700 Balance 4947.1 948.2 -700 PT 16.1 SEC (12.0-15.0) H 05/27/16 03:56 INR 1.29 (0.83-1.16) H 05/27/16 03:56 Physical Exam - Physical Exam General Appearance: no apparent distress, other (somnolent but able to talk without difficulty after self extubation) EENT: PERRL/EOMI Neck: full range of motion, supple Respiratory: lungs clear, normal breath sounds, No respiratory distress, No rales, No rhonchi, No stridor, No wheezing Cardiac/Chest: normal peripheral pulses, regular rate, rhythm, No edema Abdomen: normal bowel sounds, non-tender, soft, No organomegaly Skin: warm/dry, No rash Lymphatic: no adenopathy Extremities: normal range of motion, No pedal edema Neuro/Psych: alert, No abnormal staff electrical engineer II-XII ICD10 Worksheet Patient Problems: Problems Problem Status Diagnosed Pneumonia Acute Septic shock Acute
--- NOTE | 2016-05-28 13:36 | PCMIDPN ---
Assessment/Plan: 1. Probable aspiration pneumonia/sepsis with alpha strep in blood cultures: Please note that the Streptococcus in his blood cultures is not Streptococcus pneumoniae by PCR. Identification pending. The patient has extremely poor dentition, the likely source of his bacteremia. No obvious apical or periapical abscess on exam. Continue Zosyn for now as is; in the absence of any other new culture data, suspect he can be transitioned to Ertapenem shortly. Repeat blood cultures pending. The patient is holding his own after self-extubation. Echocardiogram tomorrow. 05/28/16 13:38 Subjective: Self extubated this morning. So far he is oxygenating well, with a good cough. Patient is still out of it, and is really not able to answer questions appropriately. Objective: Zosyn 3.375 g IV q.6 hours day 2 T-max 37.4degrees 97% on 4 L Vital Signs Temp Pulse Resp BP Pulse Ox 37.4 C 89 27 H 130/78 H 97 05/28/16 12:00 05/28/16 12:00 05/28/16 12:00 05/28/16 12:00 05/28/16 12:00 Microbiology 05/26/16 20:20 - Final Sputum, Induced/Suctioned 05/26/16 08:57 Blood Panel (PCR) - Final Blood Streptococcus Laboratory Results 05/28/16 04:00 05/28/16 04:00 05/27/16 05/28/16 05/29/16 05:59 05:59 05:59 Intake Total 5972.1 3773.2 Output Total 1025 2825 700 Balance 4947.1 948.2 -700 May 28 blood cultures x2 are pending May 26 sputum with oral austin May 26 blood culture with alpha streptococci not pneumoniae - Physical Exam General Appearance: no apparent distress, cachetic EENT: poor dentition (Multiple missing teeth and fractured and rotting stubs. No obvious apical or periapical abscess when I palpated his gums and remaining teeth.) Respiratory: coarse breath sounds Abdomen: non-tender, soft Skin: No embolic lesions ICD10 Worksheet Patient Problems: Problems Problem Status Diagnosed Pneumonia Acute Septic shock Acute
--- NOTE | 2016-05-28 15:16 | ECHO ---
[id number] + + [address] : : [place] [address] : : [phone] + + Adult Echocardiographic Report + ---+ :Name: Aneta SWEENEY Date: 05/27/2016 02:02 PM : : Hospital Admission Number: [id number] Location: 255: :: 1955 Gender: Male : :Age: 60 yrs Race: BAA : :Reason For Study: Patient readmitted with sepsis, viridans : :strep bacteremia; Eval valves for vegetation, Eval LV : :fuction : :History: Cardiac alert : + ---+ MMode/2D Measurements & Calculations IVSd: 1.2 cm LVIDd: 4.6 cm FS: 13.0 % MV Diam: 2.3 cm LVPWd: 1.1 cm LVIDs: 4.0 cm EDV(Teich): 96.0 ml ESV(Teich): 69.1 ml EF(Teich): 28.1 % LVLd ap4: 7.3 cm SV(MOD-sp4): 40.0 ml EDV(MOD-sp4): 101.0 ml LVLs ap4: 6.6 cm ESV(MOD-sp4): 61.0 ml EF(MOD-sp4): 39.6 % Normal Measurement Values: + + :LVIDd (3.5-5.7cm) IVSd (0.6-1.1cm) LVPWd (0.6-1.1cm) Aortic Root (2.0-3.7cm)Left Atrium (1.5-4.0cm): :LV Vol(d) (76-115ml) LV Vol(s) (29-48ml) Ejec Fraction (50-65%)PV Martin (0.6- 1.2m/s) TV Martin (0.4-1.0m/s) : :MV E Martin (0.8-1.0m/s)MV A Martin (0.3-1.0m/s)LVOT Martin (0.7-1.2m/s) Asc Ao Martin ( 0.9-1.8m/s) : + + Doppler Measurements & Calculations MV area (1 diam): Ao mean PG: AI max martin: MR max martin: 4.3 cm2 1.1 mmHg 205.0 cm/sec 374.0 cm/sec MV Flow area Ao V2 mean: AI max P.8 mmHgMR max PG: (1diam): 4.3 cm2 45.7 cm/sec AI dec slope: 56.0 mmHg Ao V2 VTI: 13.7 cm148.0 cm/sec2 AI P1/2t: 405.7 msec PA V2 max: TR max martin: 64.1 cm/sec 279.0 cm/sec PA max P.7 mmHg TR max P.1 mmHg RAP systole: 15.0 mmHg RVSP(TR): 46.1 mmHg Left Ventricle The left ventricle is normal in size. There is mild concentric left ventricular hypertrophy. Ejection Fraction = 35-40%. There is Doppler evidence for diastolic dysfunction. There is mild global hypokinesis of the left ventricle. Right Ventricle The right ventricle is normal size. The right ventricular systolic function is mildly reduced. Atria The left atrium is mildly dilated. The right atrium is mildly dilated. Mitral Valve The mitral valve is normal in structure and function. There is no vegetation seen on the mitral valve. There is no mitral valve stenosis. There is mild to moderate mitral regurgitation. Tricuspid Valve The tricuspid valve is normal in structure and function. There is no tricuspid valve vegetation. There is no tricuspid stenosis. There is moderate tricuspid regurgitation. Right ventricular systolic pressure is 46.1mmHg. Aortic Valve The aortic valve is trileaflet. Cannot exclude aortic valvular vegetation. There is no aortic stenosis. Moderate aortic regurgitation. Pulmonic Valve The pulmonic valve is not well visualized. There is no pulmonic valvular stenosis. There is no pulmonic valvular regurgitation. Great Vessels The aortic root is normal size. Pericardium/Pleural There is a fat pad seen. The pericardium appears mildly thickened. trivial pericardial effusion. There is a moderate pleural effusion. Conclusion This is a limited study to evaluate valves and LV function. Patient supine for duration of exam. The left ventricle is normal in size. There is mild concentric left ventricular hypertrophy. Ejection Fraction = 35-40%. There is Doppler evidence for diastolic dysfunction. There is mild global hypokinesis of the left ventricle. The right ventricle is normal size. There is mild to moderate mitral regurgitation. There is moderate tricuspid regurgitation. Moderate aortic regurgitation. Right ventricular systolic pressure is 46.1mmHg. The pericardium appears mildly thickened. Trivial pericardial effusion. There is a moderate pleural effusion. Mild biatrial enlargement. Final Reading Physician: Donavan Link signed on 05/28/2016 03:15 PM Ordering Physician: Shelley Persaud Performed By: Shonna Niño
[2016-05-28] MEDS ORDERED: LORazepam 2 MG/ML INJ IVP ONE (16:41)
[2016-05-28] MEDS: LORazepam 2 MG/ML INJ IVP PRN (17:51)
[2016-05-28] MEDS: HALOPERIDOL LACT 5 MG/ML INJ IVP PRN (22:54)
[2016-05-28] MEDS ORDERED: D50W 25 GM/50 ML SYR IVP PRN (23:36)
[2016-05-29] MEDS: INSULIN LISPRO 100 UNIT/ML SC SCH ×6 (00:18→22:11)
[2016-05-29] MEDS: PIPERACILLIN SODIUM/TAZOBACTAM 3.375 GM in D5W 50 ML IV SCH ×3 (00:19→11:28)
[2016-05-29] MEDS: NS 1,000 ML IV SCH (02:40)
[2016-05-29] MEDS: LORazepam 2 MG/ML INJ IVP PRN ×3 (02:40→23:50)
[2016-05-29] MEDS: HALOPERIDOL LACT 5 MG/ML INJ IVP PRN ×3 (05:10→19:57)
[2016-05-29 05:26] LABS: % IMMATURE GRANULYOCYTES 0.4 % (0.0-1.1); ABSOLUTE IMMATURE GRANULOCYTES 0.07 10^3/uL (0.00-0.10); ABSOLUTE NRBC COUNT 0.04 10^3/uL (0-0.01); ADD DIFF? NO; ADD MORPH? NO; ADD SCAN? YES; ATYPICAL LYMPHOCYTE FLAG 50 (0-99); FRAGMENT RBC FLAG 0 (0-99); HEMATOCRIT 27.8 % (40.0-51.0); LIPEMIA HEMOLYSIS FLAG 80 (0-99); MEAN CELL HEMOGLOBIN 29.9 pg (27.9-34.1); MEAN CELL HEMOGLOBIN CONCENTR. 32.4 g/dL (32.4-36.7); MEAN CELL VOLUME 92.4 fL (81.5-99.8); MEAN PLATELET VOLUME 9.5 fL (8.7-11.7); NRBC-AUTO% 0.3 % (0.0-0.2); PLATELET CLUMPS FLAG 0 (0-99); PLATELET COUNT 220 10^3/uL (150-400); RED BLOOD CELL COUNT 3.01 10^6/uL (4.40-6.38); RED CELL DISTRIBUTION WIDTH 14.5 % (11.5-15.2)
[2016-05-29 05:37] LABS: LEFT SHIFT FLG 250 (0-99)
[2016-05-29 05:41] LABS: ANION GAP 5 mEq/L (8-16); CALCIUM 7.5 mg/dL (8.5-10.4); CARBON DIOXIDE 30 mEq/l (22-31); CHLORIDE 109 mEq/L (97-110); GLOMERULAR FILTRATION RATE > 60; GLUCOSE 100 mg/dL (70-100); POTASSIUM 3.8 mEq/L (3.5-5.2); SODIUM 144 mEq/L (134-144)
[2016-05-29 06:45] LABS: SCAN POSITIVE
[2016-05-29 06:53] LABS: PLATELET ESTIMATE ADEQUATE (ADEQ)
[2016-05-29] MEDS: methylPREDNISolone SOD SUCC 40 MG/ML VIAL IVP SCH (08:12)
[2016-05-29] MEDS: FAMOTIDINE 20 MG/NACL 50 ML IV SCH ×2 (08:12→19:56)
[2016-05-29] MEDS: ENOXAPARIN 40 MG/0.4 ML SYR SC SCH (08:12)
[2016-05-29 08:21] LABS: BICARBONATE 26 mEq/L (22-26); MEASURED OXYGEN SATURATION 98 % (92-95); PCO2 40 mmHg (34-38); PO2 108 mmHg (65-75); TCO2 27 mEq/L (23-27)
--- NOTE | 2016-05-29 09:55 | HOSPPROG ---
Hospitalist Progress Note Assessment/Plan: 60 yo M w recent admit w CAP an dstrep pneumo bacteremia readmitted w septic shock and strep bacteremia agitation: suspect this is IBU delirium as opposed to alcohol withdrawal given absence of tachycardia or htn and the fact that he was in hospital for ten days recently w no withdrawal pretty sig today, represents danger to himself, swinging at nurses 1. dc benzos 2. precedex gtt septic shock: off pressors septic physiology has resolved strep bacteremia: interestingly not strep pneumo, which he had two weeks ago continue zosyn suspected oral source taylor sens strep viridans, may be able to switch to pcn echo w no vegetation and blood cx have cleared so can likely forego KYLE SVT: follow elevated bnp: volume resuscitation likely cause not clinically in heart failure follow acute hypoxemic resp failure: attributable to airspace disease may be able to extubate today wean steroids proph: lmwh hyperkalemia: lreslved URMILA: improving code: full Subjective: agitated. case discussed w dr baugh. tele: svt at 2 pm yesterday ( interp by me). self limited Objective: Vital Signs Temp Pulse Resp BP Pulse Ox 37.1 C 88 20 148/93 H 98 05/29/16 08:00 05/29/16 08:00 05/29/16 08:00 05/29/16 08:00 05/29/16 08:00 Microbiology 05/26/16 08:57 Blood Panel (PCR) - Final Blood Streptococcus 05/26/16 20:20 - Final Sputum, Induced/Suctioned Sputum Culture - Final Haemophilus Influenzae Laboratory Results 05/29/16 05:00 05/29/16 05:00 05/28/16 05/29/16 05/30/16 05:59 05:59 05:59 Intake Total 3773.2 2524.6 Output Total 2825 2375 Balance 948.2 149.6 PT 16.1 SEC (12.0-15.0) H 05/27/16 03:56 INR 1.29 (0.83-1.16) H 05/27/16 03:56 - Physical Exam Constitutional: other (agitated, minimally interactive) Eyes: PERRL, anicteric sclera, EOMI Ears, Nose, Mouth, Throat: hearing normal, No moist mucous membranes Cardiovascular: regular rate and rhythym, no murmur, rub, or gallop, No systolic murmur Respiratory: no respiratory distress, no rales or rhonchi, other (difficult exam given agitation. upper airway sounds) Gastrointestinal: normoactive bowel sounds, soft, non-tender abdomen Genitourinary: No arrington in urethra Skin: warm, normal color Musculoskeletal: full muscle strength, no muscle tenderness Neurologic: sensation intact bilaterally, No AAOx3 ICD10 Worksheet Patient Problems: Problems Problem Status Diagnosed Pneumonia Acute Septic shock Acute
[2016-05-29] MEDS: DEXMEDETOMIDINE HCL 400 MCG in NS 100 ML IV SCH ×2 (10:26→19:57)
--- NOTE | 2016-05-29 12:58 | PDINTPN ---
Internal Audit Senior Manager Progress Note Assessment/Plan: Assessment: 60 yo homeless M with history of etoh recently admitted to [facility] with Strep PNA and bacteremia treated with PCN. He was re-admitted 05/25 with respiratory failure and required ETT and pressors. His CXR showed increasing infiltrates in a similar pattern as previous, and his blood cultures have grown Strep again. * S. Viridens bateremia: 1/2 initial blood cultures positive. Frost-sensitive. Repeat Blood cultures negative at 24h. On Zosyn. Likely oral source. Nothing suggests endocarditis. Bandemia improving * PNA which may have been exacerbated by inadequate duration of antibiotics. Likely pathogen is Strep since in Bcx. Previous CT without obvious obstructing lesion, but I agree with repeat film to evaluate. Appreciate ID assistance. * Septic shock 2/2 # 1- Resolved and off pressors * URMILA- 2/2 above. UOP is adequate at the moment. Starting HCO3 drip 2/2 mild hyperkalemia as well. Likely hypotension-induced ATN. Cr down to normal * Respiratory failure with hypoxia- Self extubated yesterday though he was weaning well. Increased respiratory effort and hypoxemia today. * Non-AG acidosis likely 2/2 NS load 05/26. * Troponin- small leak. Not likely ACS, though BNP of 16,000 is excessive. EF 60 % on echo 05/09/16 (no veggies reported at that time). Plan: Reduce IVF. Continue antibiotics. Nebs PRN. Repeat CXR. D/W Dr. Roth, RN, RT. Critical care time 40 minutes 05/29/16 13:06 Subjective: Unresponsive. Objective: Vital Signs Temp Pulse Resp BP Pulse Ox 37.1 C 90 31 H 165/81 H 94 05/29/16 08:00 05/29/16 12:00 05/29/16 12:00 05/29/16 12:00 05/29/16 12:00 Microbiology 05/26/16 08:57 Blood Panel (PCR) - Final Blood Streptococcus 05/26/16 20:20 - Final Sputum, Induced/Suctioned Sputum Culture - Final Haemophilus Influenzae Laboratory Results 05/29/16 05:00 05/29/16 05:00 05/28/16 05/29/16 05/30/16 05:59 05:59 05:59 Intake Total 3773.2 2524.6 Output Total 2825 2375 Balance 948.2 149.6 PT 16.1 SEC (12.0-15.0) H 05/27/16 03:56 INR 1.29 (0.83-1.16) H 05/27/16 03:56 CXR 05/27/16: Bilateral patchy consolidation. Blood Cx 05/28: Negative. Physical Exam - Physical Exam General Appearance: mild distress, No alert EENT: normal ENT inspection Neck: normal inspection Respiratory: rales, wheezing Cardiac/Chest: regular rate, rhythm, No edema Abdomen: normal bowel sounds, non-tender, soft Skin: normal color, warm/dry Extremities: non-tender Neuro/Psych: No alert, No normal mood/affect ICD10 Worksheet Patient Problems: Problems Problem Status Diagnosed Pneumonia Acute Septic shock Acute
[2016-05-29] MEDS: IPRATROPIUM/ALBUTEROL 3 ML DEYVIAL IH PRN ×3 (13:21→20:49)
--- NOTE | 2016-05-29 14:24 | DX ---
Portable Chest, Single View 13:23 Hours Indication: Pneumonia and septic shock. Follow-up pulmonary opacities. Comparison: Portable chest dated May 27, 2016 Findings: Confluent groundglass airspace consolidation have increased extending to the periphery of the right and left lung since 2 days prior. Dense central airspace consolidation has not significantl y changed. The right IJ central venous line and esophagogastric tube have been removed. No effusion o r pneumothorax. Impression: Worsening edema superimposed on bilateral airspace consolidation.
[2016-05-29] MEDS ORDERED: FUROSEMIDE 40 MG/4 ML VIAL IVP ONE (16:15)
[2016-05-29] MEDS: ERTAPENEM 1 GM in NS 100 ML IV SCH (17:00)
--- NOTE | 2016-05-29 18:30 | PCMIDPN ---
Assessment/Plan: Assessment/Plan: * Multilobar pneumonia: Concerned that initiated by aspiration after recent invasive pneumococcal disease. Blood culture showing 1 of 2 sets with Streptococcus salivarius which could be contributor if aspiration present. Also has Haemophilus influenzae on sputum sample. Will transition Zosyn to ertapenem based on culture findings. Continues with tenuous respiratory status and increased respiratory effort. * Streptococcus salivarius bacteremia: See above discussion. At times can also be a contaminant although suspect in this circumstance more likely true pathogen. Echocardiogram without overt evidence of endocarditis. Covered by above antibiotic therapy. Repeat cultures of blood to ensure clearing of bacteremia are no growth to date. 05/29/16 18:27 05/29/16 18:28 Subjective: Patient unresponsive to questions. Objective: Vital Signs Temp Pulse Resp BP Pulse Ox 37.1 C 70 32 H 155/101 H 97 05/29/16 08:00 05/29/16 17:00 05/29/16 17:00 05/29/16 16:00 05/29/16 17:00 Microbiology 05/26/16 08:57 Blood Panel (PCR) - Final Blood Streptococcus 05/26/16 20:20 - Final Sputum, Induced/Suctioned Sputum Culture - Final Haemophilus Influenzae Laboratory Results 05/29/16 05:00 05/29/16 05:00 05/28/16 05/29/16 05/30/16 05:59 05:59 05:59 Intake Total 3773.2 2524.6 1267 Output Total 2825 2375 700 Balance 948.2 149.6 567 Zosyn # 3 Blood cultures 05/28/2016 pending Blood cultures 05/26/2016 1/2 sets Streptococcus salivarius Sputum with growth of Haemophilus influenzae Chest x-ray with bilateral infiltrates - Physical Exam General Appearance: apparent distress (Increased respiratory effort present), other (Non responsive to questions or commands) EENT: dry mucous membranes, No thrush Respiratory: respiratory distress (Increased respiratory effort), coarse breath sounds (Diffusely) Cardiac/Chest: regular rate, rhythm Abdomen: non-tender, No distended Skin: No embolic lesions ICD10 Worksheet Patient Problems: Problems Problem Status Diagnosed Pneumonia Acute Septic shock Acute
[2016-05-29] MEDS: hydrALAZINE 20 MG/ML VIAL IVP PRN (22:28)
[2016-05-29] MEDS ORDERED: LORazepam 2 MG/ML INJ ONE (23:48)
[2016-05-30] MEDS: HALOPERIDOL LACT 5 MG/ML INJ IVP PRN ×3 (01:46→18:38)
[2016-05-30] MEDS: DEXMEDETOMIDINE HCL 400 MCG in NS 100 ML IV SCH ×4 (01:46→19:43)
[2016-05-30] MEDS: INSULIN LISPRO 100 UNIT/ML SC SCH ×6 (01:46→22:14)
[2016-05-30] MEDS: NS 1,000 ML IV SCH (01:47)
[2016-05-30] MEDS: hydrALAZINE 20 MG/ML VIAL IVP PRN ×3 (02:06→20:28)
[2016-05-30] MEDS: LORazepam 2 MG/ML INJ IVP PRN ×4 (03:54→22:13)
[2016-05-30] MEDS: IPRATROPIUM/ALBUTEROL 3 ML DEYVIAL IH PRN ×5 (04:00→20:13)
[2016-05-30 04:14] LABS: % IMMATURE GRANULYOCYTES 1.5 % (0.0-1.1); ABSOLUTE IMMATURE GRANULOCYTES 0.24 10^3/uL (0.00-0.10); ABSOLUTE NRBC COUNT 0.05 10^3/uL (0-0.01); ADD DIFF? NO; ADD MORPH? NO; ADD SCAN? NO; ATYPICAL LYMPHOCYTE FLAG 70 (0-99); FRAGMENT RBC FLAG 0 (0-99); HEMATOCRIT 35.1 % (40.0-51.0); HEMOGLOBIN 11.3 g/dL (13.7-17.5); LEFT SHIFT FLG 20 (0-99); LIPEMIA HEMOLYSIS FLAG 80 (0-99); MEAN CELL HEMOGLOBIN 30.1 pg (27.9-34.1); MEAN CELL HEMOGLOBIN CONCENTR. 32.2 g/dL (32.4-36.7); MEAN CELL VOLUME 93.6 fL (81.5-99.8); MEAN PLATELET VOLUME 9.3 fL (8.7-11.7); NRBC-AUTO% 0.3 % (0.0-0.2); PLATELET CLUMPS FLAG 10 (0-99); PLATELET COUNT 209 10^3/uL (150-400); RED BLOOD CELL COUNT 3.75 10^6/uL (4.40-6.38); RED CELL DISTRIBUTION WIDTH 14.3 % (11.5-15.2)
[2016-05-30 04:22] LABS: ANION GAP 9 mEq/L (8-16); CALCIUM 8.3 mg/dL (8.5-10.4); CARBON DIOXIDE 28 mEq/l (22-31); CHLORIDE 113 mEq/L (97-110); CREATININE 0.9 mg/dL (0.7-1.3); GLOMERULAR FILTRATION RATE > 60; GLUCOSE 85 mg/dL (70-100); POTASSIUM 3.5 mEq/L (3.5-5.2); SODIUM 150 mEq/L (134-144)
[2016-05-30] MEDS: FAMOTIDINE 20 MG/NACL 50 ML IV SCH (08:13)
[2016-05-30] MEDS: ENOXAPARIN 40 MG/0.4 ML SYR SC SCH (08:13)
[2016-05-30] MEDS: ERTAPENEM 1 GM in NS 100 ML IV SCH (08:13)
[2016-05-30] MEDS ORDERED: predniSONE 20 MG TAB PO SCH (09:00)
[2016-05-30] MEDS ORDERED: FUROSEMIDE 20 MG/2 ML VIAL IVP ONE (10:17)
[2016-05-30] MEDS ORDERED: D5W 1,000 ML IV SCH (10:30)
--- NOTE | 2016-05-30 10:50 | PCMIDPN ---
Assessment/Plan: # Multilobar pneumonia on BiPAP: Possible aspiration PNA, noted recent invasive pneumococcal disease (I saw patient during hospitalization). Blood culture showing 1 of 2 sets with Streptococcus salivarius and Haemophilus influenzae on sputum sample. -- continue ertapenem based on culture findings + clinical scenario . #Streptococcal bacteremia, repeat blood cx 05/28 negative # recent pneumococcal pneumonia, bacteremia. Patient was discharged on levofloxacin, confirmed with pharmacy today. Antibiotic, day 4 Ertapenem 1 g IV daily S/p 3 days Zosyn Subjective: Patient is sedated on BiPAP. Withdrawals to tactile stimulation, no specific events overnight Objective: Vital Signs Temp Pulse Resp BP Pulse Ox 36 C 62 29 H 173/83 H 97 05/30/16 08:12 05/30/16 10:00 05/30/16 10:00 05/30/16 10:08 05/30/16 10:00 Microbiology 05/26/16 08:57 Blood Panel (PCR) - Final Blood Streptococcus Laboratory Results 05/30/16 03:55 05/30/16 03:55 05/29/16 05/30/16 05/31/16 05:59 05:59 05:59 Intake Total 2524.6 2737 Output Total 2375 3325 Balance 149.6 -588 - Physical Exam General Appearance: thin, other (Sedated) EENT: pale conjunctiva, other (Unable to examine mouth due to BiPAP but past exams showed poor dentition) Respiratory: accessory muscle use, crackles, No wheezing Neck: supple Cardiac/Chest: regular rate, rhythm Extremities: No pedal edema Abdomen: non-tender, soft, No distended Male Genitalia: arrington Skin: No rash Neuro/Psych: other (Sedated) - Line/s PIV Lines: other (Right forearm), No drainage, No erythema ICD10 Worksheet Patient Problems: Problems Problem Status Diagnosed Pneumonia Acute Septic shock Acute
--- NOTE | 2016-05-30 12:32 | PDINTPN ---
Social Human Services Assistants Progress Note Assessment/Plan: Assessment: 60 yo homeless M with history of etoh recently admitted to [facility] with Strep PNA and bacteremia treated with PCN. He was re-admitted 05/25 with respiratory failure and required ETT and pressors. His CXR showed increasing infiltrates in a similar pattern as previous, and his blood cultures have grown Strep again. * S. Salivarius bateremia: 1/2 initial blood cultures positive. Frost-sensitive. Repeat Blood cultures negative. On Ertapenam. Likely oral source. Nothing suggests endocarditis. WBC high but stable. * PNA which may have been exacerbated by inadequate duration of antibiotics. Likely pathogen is Strep since in Bcx. CXR also suggests some edema. * Septic shock 2/2 # 1- Resolved and off pressors * URMILA-Improved. Now with hypernatremia. * Respiratory failure with hypoxia- Self extubated, now with increased respiratory effort, possibly related to fluid status in addition to his pneumonia. Requiring BiPAP uch of the day. May require re-intubation. * Non-AG acidosis likely 2/2 NS load 05/26. * Troponin- small leak. Not likely ACS, though BNP of 16,000 is excessive. EF 60 % on echo 05/09/16 (no veggies reported at that time). * Delerium: Likely due to ICU stay as well as critical illness. Doubt EtOH, as he's been hospitalized much of the last few weeks. Plan: Change IVF to D5. Diuresis. Continue ertapenam. Nebs PRN. Follow CXR. D/W Dr. Roth, RN, RT. Critical care time 35 minutes 05/29/16 13:06 Subjective: Intermittantly sedated and then agitated. Objective: Vital Signs Temp Pulse Resp BP Pulse Ox 36.2 C 62 30 H 158/69 H 96 05/30/16 12:00 05/30/16 12:00 05/30/16 12:00 05/30/16 12:00 05/30/16 12:00 Microbiology 05/26/16 08:57 Blood Panel (PCR) - Final Blood Streptococcus Laboratory Results 05/30/16 03:55 05/30/16 03:55 05/29/16 05/30/16 05/31/16 05:59 05:59 05:59 Intake Total 2524.6 2737 Output Total 2375 3325 Balance 149.6 -588 PT 16.1 SEC (12.0-15.0) H 05/27/16 03:56 INR 1.29 (0.83-1.16) H 05/27/16 03:56 Physical Exam - Physical Exam General Appearance: no apparent distress, No alert EENT: normal ENT inspection Neck: normal inspection, No carotid bruit Respiratory: crackles, No lungs clear Cardiac/Chest: regular rate, rhythm, No edema Abdomen: normal bowel sounds, non-tender, soft Skin: normal color, warm/dry Extremities: normal inspection Neuro/Psych: alert, normal mood/affect, oriented x 3 ICD10 Worksheet Patient Problems: Problems Problem Status Diagnosed Pneumonia Acute Septic shock Acute
--- NOTE | 2016-05-30 14:42 | HOSPPROG ---
Hospitalist Progress Note Assessment/Plan: 60 yo M w recent admit w CAP an dstrep pneumo bacteremia readmitted w septic shock and strep bacteremia agitation: suspect this is ICU delirium as opposed to alcohol withdrawal given absence of tachycardia or htn and the fact that he was in hospital for ten days recently w no withdrawal pretty sig today, represents danger to himself, swinging at nurses 1. lower benzos 2. precedex gtt septic shock: off pressors septic physiology has resolved strep bacteremia: interestingly not strep pneumo, which he had two weeks ago continue zosyn suspected oral source taylor sens strep viridans, may be able to switch to pcn echo w no vegetation and blood cx have cleared so can likely forego KYLE SVT: follow elevated bnp: volume resuscitation likely cause not clinically in heart failure follow acute hypoxemic resp failure: attributable to airspace disease may be able to extubate today wean steroids worse today (05/30) chec cxr. we are diuresing proph: lmwh hyperkalemia: lreslved URMILA: improving code: full Subjective: tele: sinus (interp by me). agitated requiring precedex. case d/w dr baugh Objective: Vital Signs Temp Pulse Resp BP Pulse Ox 36.2 C 59 L 29 H 161/76 H 97 05/30/16 12:00 05/30/16 14:00 05/30/16 14:00 05/30/16 14:00 05/30/16 14:00 Microbiology 05/26/16 08:57 Blood Culture - Final Blood Streptococcus Salivarius Blood Panel (PCR) - Final Streptococcus Laboratory Results 05/30/16 03:55 05/30/16 03:55 05/29/16 05/30/16 05/31/16 05:59 05:59 05:59 Intake Total 2524.6 2737 Output Total 2375 3325 Balance 149.6 -588 PT 16.1 SEC (12.0-15.0) H 05/27/16 03:56 INR 1.29 (0.83-1.16) H 05/27/16 03:56 - Physical Exam Constitutional: no apparent distress, appears nourished Eyes: PERRL, anicteric sclera Ears, Nose, Mouth, Throat: moist mucous membranes, hearing normal Cardiovascular: regular rate and rhythym, no murmur, rub, or gallop Respiratory: other (very rhoncorous, good air movement) Gastrointestinal: normoactive bowel sounds, soft, non-tender abdomen Genitourinary: No arrington in urethra Skin: warm Musculoskeletal: full muscle strength, no joint effusions Neurologic: No AAOx3, No sensation intact bilaterally ICD10 Worksheet Patient Problems: Problems Problem Status Diagnosed Pneumonia Acute Septic shock Acute
--- NOTE | 2016-05-30 15:25 | DX ---
Portable Chest 15:04 History: Follow-up pneumonia Comparison: Yesterday 13:23 Findings: Slight worsening of bilateral consolidation in the left perihilar area. The costophrenic gu tters remain sharp. Heart size remains stable. Impression: Continued progression of left lung pneumonia. Stable right lung pneumonia.
[2016-05-30] MEDS ORDERED: PROTOCOL POTASSIUM 1 DOSE MISC PRN (17:10)
[2016-05-30 18:25] LABS: POTASSIUM 3.3 mEq/L (3.5-5.2)
[2016-05-30] MEDS: POTASSIUM Cl (KCl) 100 ML IV SCH ×2 (22:13→23:30)
[2016-05-31] MEDS: DEXMEDETOMIDINE HCL 400 MCG in NS 100 ML IV SCH ×2 (00:15→05:38)
[2016-05-31] MEDS: HALOPERIDOL LACT 5 MG/ML INJ IVP PRN (00:20)
[2016-05-31] MEDS: IPRATROPIUM/ALBUTEROL 3 ML DEYVIAL IH PRN ×4 (00:31→21:26)
[2016-05-31] MEDS: POTASSIUM Cl (KCl) 100 ML IV SCH (01:27)
[2016-05-31] MEDS: hydrALAZINE 20 MG/ML VIAL IVP PRN (03:12)
[2016-05-31] MEDS: LORazepam 2 MG/ML INJ IVP PRN (03:12)
[2016-05-31] MEDS: INSULIN LISPRO 100 UNIT/ML SC SCH ×3 (03:15→14:40)
[2016-05-31 06:08] LABS: POTASSIUM 4.7 mEq/L (3.5-5.2)
[2016-05-31] MEDS: ENOXAPARIN 40 MG/0.4 ML SYR SC SCH (08:03)
[2016-05-31] MEDS: ERTAPENEM 1 GM in NS 100 ML IV SCH (08:04)
--- NOTE | 2016-05-31 08:56 | HOSPPROG ---
[id number] resp failure -PNA and edema likely contributing with decreased EF -Improving. Lasix IV x 1 today. CXR in morning #Acute encephalopathy -multifactorial with infection, ICU -weaning off Precedex #Leukocytosis: stable #Deconditioning: sitting in chair, PT/OT #Slurred speech: chronic per patient -swallow eval #Mildly decompensated systolic HF: normal EF 05/09. Now with mild global hypokinesis. -Lasix today #Septic shock: resolved #Indeterminate trop -peaked at 0.08. TTE with reduced EF and mildly global hypokinesis likely due to sepsis. Consider ischemic eval when clinically improved #Accelerated HTN -PRN hydral. #DVT ppx: lovenox #Diet: speech eval, regular diet if passes #Disp: warrants inpt admission for PT/OT, IV abx Subjective: no pain. Tired Objective: Vital Signs Temp Pulse Resp BP Pulse Ox 36.7 C 62 26 H 148/63 H 92 05/31/16 07:13 05/31/16 07:13 05/31/16 07:13 05/31/16 07:13 05/31/16 07:13 Microbiology 05/26/16 08:57 Blood Culture - Final Blood Streptococcus Salivarius Blood Panel (PCR) - Final Streptococcus Laboratory Results 05/30/16 03:55 05/31/16 05:35 05/30/16 05/31/16 06/01/16 05:59 05:59 05:59 Intake Total 2737 2513 Output Total 3325 0245 Balance -588 -8072 PT 16.1 SEC (12.0-15.0) H 05/27/16 03:56 INR 1.29 (0.83-1.16) H 05/27/16 03:56 - Physical Exam Constitutional: chronically ill appearing Eyes: PERRL Ears, Nose, Mouth, Throat: dry mucous membranes Cardiovascular: regular rate and rhythym, no murmur, rub, or gallop Respiratory: reduced air movement, rhonchi Gastrointestinal: normoactive bowel sounds, soft, non-tender abdomen Genitourinary: no bladder fullness Skin: warm, no fluctuance Musculoskeletal: generalized weakness Neurologic: AAOx3 (A&O x2), other (slowed speech) Psychiatric: interacting appropriately (slow to answer questions) ICD10 Worksheet Patient Problems: Problems Problem Status Diagnosed Pneumonia Acute Septic shock Acute
[2016-05-31] MEDS ORDERED: FUROSEMIDE 20 MG/2 ML VIAL IVP ONE (10:23)
--- NOTE | 2016-05-31 10:46 | PCMIDPN ---
Assessment/Plan: # Multilobar pneumonia on BiPAP: Possible aspiration PNA, noted recent invasive pneumococcal disease (I saw patient during hospitalization). Blood culture showing 1 of 2 sets with Streptococcus salivarius and Haemophilus influenzae on sputum sample. Clinically improved today, interactive and lower O2 requirements -- continue ertapenem based on culture findings + clinical scenario . #Streptococcal bacteremia, repeat blood cx 05/28 negative # recent pneumococcal pneumonia, bacteremia. Patient was discharged on levofloxacin, confirmed with pharmacy Antibiotic, day 5 Ertapenem 1 g IV daily S/p 3 days Zosyn Care coordinated with Dr. Shelton Subjective: frustrated by recurrent PNA and slow process of improvement Objective: Vital Signs Temp Pulse Resp BP Pulse Ox 36.7 C 62 26 H 148/63 H 92 05/31/16 07:13 05/31/16 07:13 05/31/16 07:13 05/31/16 07:13 05/31/16 07:13 Microbiology 05/26/16 08:57 Blood Culture - Final Blood Streptococcus Salivarius Blood Panel (PCR) - Final Streptococcus Laboratory Results 05/30/16 03:55 05/31/16 05:35 05/30/16 05/31/16 06/01/16 05:59 05:59 05:59 Intake Total 2737 2513 Output Total 2073 7387 Balance -025 -1732 - Physical Exam General Appearance: alert, no apparent distress EENT: poor dentition Respiratory: crackles Neck: supple Cardiac/Chest: regular rate, rhythm Extremities: No pedal edema Abdomen: non-tender, soft Skin: No rash Neuro/Psych: alert, normal mood/affect, oriented x 3 ICD10 Worksheet Patient Problems: Problems Problem Status Diagnosed Pneumonia Acute Septic shock Acute
--- NOTE | 2016-05-31 12:57 | PDINTPN ---
Building Economist Progress Note Assessment/Plan: Assessment: 60 yo homeless M with history of etoh recently admitted to [facility] with Strep PNA and bacteremia treated with PCN. He was re-admitted 05/25 with respiratory failure and required ETT and pressors. His CXR showed increasing infiltrates in a similar pattern as previous, and his blood cultures have grown Strep again. * S. Salivarius bateremia: 1/2 initial blood cultures positive. Frost-sensitive. Repeat Blood cultures negative. On Ertapenam. Likely oral source with pneumonia. Nothing suggests endocarditis. WBC high * PNA. Likely pathogen is Strep since in Bcx. CXR also suggests some edema. * Septic shock 2/2 # 1- Resolved and off pressors * URMILA-Improved. Now with hypernatremia. * Respiratory failure with hypoxia- Self extubated, now with increased respiratory effort, possibly related to fluid status in addition to his pneumonia. Requiring BiPAP uch of the day. May require re-intubation. * Non-AG acidosis likely 2/2 NS load 05/26. * Troponin- small leak. Not likely ACS, though BNP of 16,000 is excessive. EF 60 % on echo 05/09/16 (no veggies reported at that time). * Delerium: Likely due to ICU stay as well as critical illness. Doubt EtOH, as he's been hospitalized much of the last few weeks. Improving Plan: Change IVF to D5. Diuresis. Recheck BMP. Continue ertapenam. Nebs PRN. Follow CXR. D/W Dr. Shelton, RN, RT. 05/31/16 13:01 Subjective: Feels better, stronger, denies pain or dyspnea. Does have some cough. Objective: Vital Signs Temp Pulse Resp BP Pulse Ox 36.7 C 92 18 148/70 H 92 05/31/16 07:13 05/31/16 10:00 05/31/16 10:00 05/31/16 10:00 05/31/16 10:00 Microbiology 05/26/16 08:57 Blood Culture - Final Blood Streptococcus Salivarius Blood Panel (PCR) - Final Streptococcus Laboratory Results 05/30/16 03:55 05/31/16 05:35 05/30/16 05/31/16 06/01/16 05:59 05:59 05:59 Intake Total 5752 2105 Output Total 6689 9761 Balance -993 -5575 PT 16.1 SEC (12.0-15.0) H 05/27/16 03:56 INR 1.29 (0.83-1.16) H 05/27/16 03:56 CXR: Slightly worse infiltrates on left, stable on right. Images reviewed. Physical Exam - Physical Exam General Appearance: alert, no apparent distress EENT: normal ENT inspection Neck: full range of motion Respiratory: lungs clear, normal breath sounds Cardiac/Chest: regular rate, rhythm, No edema Abdomen: normal bowel sounds, non-tender, soft Skin: normal color, warm/dry Extremities: normal inspection Neuro/Psych: alert, motor weakness (diffuse), speech abnormalities (dysarthric) , No normal mood/affect (a bit confused) ICD10 Worksheet Patient Problems: Problems Problem Status Diagnosed Pneumonia Acute Septic shock Acute
[2016-05-31 16:24] LABS: ANION GAP 6 mEq/L (8-16); CALCIUM 8.1 mg/dL (8.5-10.4); CARBON DIOXIDE 28 mEq/l (22-31); CHLORIDE 105 mEq/L (97-110); CREATININE 0.6 mg/dL (0.7-1.3); GLOMERULAR FILTRATION RATE > 60; GLUCOSE 121 mg/dL (70-100); POTASSIUM 4.1 mEq/L (3.5-5.2); SODIUM 139 mEq/L (134-144); SPECIMEN HEMOLYSIS 156
[2016-06-01] MEDS: IPRATROPIUM/ALBUTEROL 3 ML DEYVIAL IH PRN (04:14)
[2016-06-01] MEDS ORDERED: ADENOSINE 6 MG/2 ML VIAL ONE (04:36)
--- NOTE | 2016-06-01 04:51 | CPEKG ---
Heart Rate: 91 RR Interval: 659 P-R Interval: 132 QRSD Interval: 96 QT Interval: 336 QTC Interval: 414 P [place]: 39 QRS [place]: -46 T Wave Brom[place]: 83 EKG Severity - ABNORMAL ECG - EKG Impression: SINUS TACHYCARDIA EKG Impression: ATRIAL PREMATURE COMPLEX EKG Impression: LAD, CONSIDER LEFT ANTERIOR FASCICULAR BLOCK EKG Impression: LVH WITH SECONDARY REPOLARIZATION ABNORMALITY EKG Impression: ANTERIOR Q WAVES, POSSIBLY DUE TO LVH EKG Impression: ST DEPRESSION, CONSIDER ISCHEMIA, ANT-LAT LDS Electronically Signed By: Kaitlin Ambriz 01-Jun-2016 08:42:28
--- NOTE | 2016-06-01 04:54 | CPEKG ---
Heart Rate: 100 RR Interval: 600 P-R Interval: 128 QRSD Interval: 96 QT Interval: 368 QTC Interval: 475 P [place]: 37 QRS [place]: -45 T Wave [place]: 61 EKG Severity - ABNORMAL ECG - EKG Impression: SINUS TACHYCARDIA EKG Impression: PROBABLE LEFT ATRIAL ABNORMALITY EKG Impression: LAD, CONSIDER LEFT ANTERIOR FASCICULAR BLOCK EKG Impression: LVH WITH SECONDARY REPOLARIZATION ABNORMALITY EKG Impression: ANTERIOR Q WAVES, POSSIBLY DUE TO LVH Electronically Signed By: Kaitlin Ambriz 01-Jun-2016 08:42:33
[2016-06-01 05:01] LABS: HEMATOCRIT 34.3 % (40.0-51.0); HEMOGLOBIN 11.6 g/dL (13.7-17.5); MEAN CELL HEMOGLOBIN 30.3 pg (27.9-34.1); MEAN CELL HEMOGLOBIN CONCENTR. 33.8 g/dL (32.4-36.7); MEAN CELL VOLUME 89.6 fL (81.5-99.8); RED BLOOD CELL COUNT 3.83 10^6/uL (4.40-6.38); RED CELL DISTRIBUTION WIDTH 13.8 % (11.5-15.2)
[2016-06-01] MEDS ORDERED: LEVALBUTEROL 0.63 MG/3 ML DEYVIAL IH PRN (05:01)
[2016-06-01 05:11] LABS: BASE EXCESS 3.5 mEq/L (-2.5-2.5); BICARBONATE 26 mEq/L (22-26); MEASURED OXYGEN SATURATION 92 % (92-95); PCO2 33 mmHg (34-38); PO2 64 mmHg (65-75); TCO2 27 mEq/L (23-27)
[2016-06-01 05:15] LABS: ANION GAP 11 mEq/L (8-16); CALCIUM 7.9 mg/dL (8.5-10.4); CARBON DIOXIDE 27 mEq/l (22-31); CHLORIDE 108 mEq/L (97-110); CREATININE 0.7 mg/dL (0.7-1.3); GLOMERULAR FILTRATION RATE > 60; GLUCOSE 101 mg/dL (70-100); POTASSIUM 2.9 mEq/L (3.5-5.2); SODIUM 146 mEq/L (134-144)
[2016-06-01] MEDS ORDERED: ADENOSINE 6 MG/2 ML VIAL IVP ONE (06:00)
[2016-06-01] MEDS: POTASSIUM Cl (KCl) 100 ML IV SCH ×3 (06:25→08:29)
[2016-06-01] MEDS ORDERED: POTASSIUM CL 10 MEQ TAB PO ONE ×3 (07:38→19:50)
[2016-06-01] MEDS: ERTAPENEM 1 GM in NS 100 ML IV SCH (08:13)
[2016-06-01] MEDS: ENOXAPARIN 40 MG/0.4 ML SYR SC SCH (08:14)
--- NOTE | 2016-06-01 08:18 | DX ---
Portable AP Upright Chest, at 6:23 a.m. Clinical History: 60-year-old male inpatient in the ICU for follow-up evaluation of pneumonia. Comparison Study: Chest, dated May 30, 2016, at 3:04 p.m. Findings: Telemetry monitoring lead lines are present. The cardiac silhouette remains mildly enlarged , however is stable; there is tortuosity of the aorta. There has been improvement in the degree of co nsolidation involving the bilateral predominantly perihilar infiltrates. There is no pleural effusion or pneumothorax. The osseous structures are age-appropriate. Impression: Interval improvement in the bilateral infiltrates, compared to May 30, 2016.
--- NOTE | 2016-06-01 09:03 | PCMIDPN ---
Assessment/Plan: # Multilobar pneumonia on BiPAP: Possible aspiration PNA, noted recent invasive pneumococcal disease (I saw patient during hospitalization). Blood culture showing 1 of 2 sets with Streptococcus salivarius and Haemophilus influenzae on sputum sample. Continued clinically improved today, interactive and lower O2 requirements. CXR reviewed personally by me and is stable. -- continue ertapenem, plan 10 day course. #Streptococcal bacteremia, repeat blood cx 05/28 negative # recent pneumococcal pneumonia, bacteremia. Patient was discharged on levofloxacin, confirmed with pharmacy Antibiotic, day 6 Ertapenem 1 g IV daily S/p 3 days Zosyn Care coordinated with Dr. Shelton Subjective: feeling better, wants pizza denies SOB "I don't understand why I am so weak" Objective: Vital Signs Temp Pulse Resp BP Pulse Ox 36.9 C 85 34 H 177/82 H 91 L 06/01/16 07:17 06/01/16 07:17 06/01/16 07:17 06/01/16 07:17 06/01/16 07:17 Laboratory Results 06/01/16 04:43 06/01/16 04:43 05/31/16 06/01/16 06/02/16 05:59 05:59 05:59 Intake Total 2513 851 Output Total 9142 9380 Balance -2061 General Appearance: alert, no apparent distress, cachetic EENT: poor dentition Respiratory: crackles, but less prominent today Neck: supple Cardiac/Chest: regular rate, rhythm Extremities: No pedal edema Abdomen: non-tender, soft Skin: No rash Neuro/Psych: alert, normal mood/affect, oriented x 3 ICD10 Worksheet Patient Problems: Problems Problem Status Diagnosed Pneumonia Acute Septic shock Acute
[2016-06-01] MEDS: METOPROLOL TARTRATE 25 MG TAB PO SCH ×2 (10:53→20:03)
--- NOTE | 2016-06-01 11:49 | CPEKG ---
Heart Rate: 73 RR Interval: 822 P-R Interval: 136 QRSD Interval: 100 QT Interval: 484 QTC Interval: 534 P [place]: 42 QRS [place]: -54 T Wave [place]: -53 EKG Severity - ABNORMAL ECG - EKG Impression: SINUS RHYTHM EKG Impression: ATRIAL PREMATURE COMPLEX EKG Impression: PROBABLE LEFT ATRIAL ABNORMALITY EKG Impression: LAD, CONSIDER LEFT ANTERIOR FASCICULAR BLOCK EKG Impression: LEFT VENTRICULAR HYPERTROPHY EKG Impression: ANTERIOR Q WAVES, POSSIBLY DUE TO LVH EKG Impression: NONSPECIFIC T ABNORMALITIES, INFERIOR LEADS EKG Impression: PROLONGED QT INTERVAL Electronically Signed By: Kaitlin Ambriz 01-Jun-2016 15:54:19
--- NOTE | 2016-06-01 12:07 | PDINTPN ---
House Wirer Progress Note Assessment/Plan: Assessment: 60 yo homeless M with history of etoh recently admitted to [facility] with Strep PNA and bacteremia treated with PCN. He was re-admitted 05/25 with respiratory failure and required ETT and pressors. His CXR showed increasing infiltrates in a similar pattern as previous, and his blood cultures have grown Strep again. * S. Salivarius bateremia: 1/ initial blood cultures positive. Frost-sensitive. Repeat Blood cultures negative. On Ertapenam. Likely oral source with pneumonia. Nothing suggests endocarditis. WBC high * PNA. Likely pathogen is Strep since in Bcx. * Septic shock 2/ # 1- Resolved and off pressors * URMILA-Improved. Now with hypernatremia. * Respiratory failure with hypoxia- Self extubated, oxygen needs and work of breathing improved * SVT: HR 215. Resolved with adenosine. Now in NSR. * Troponin- Bumped up again at time of SVT. New T-wave inversion V3. No Sx * Delerium: Likely due to ICU stay as well as critical illness. Doubt EtOH, as he's been hospitalized much of the last few weeks. Improving * HTN Plan: Continue D5, follow Na. Follow BMP. Continue ertapenam. Start metoprolol and amlodipine. Nebs PRN. Follow CXR. May be able to transfer to floor if cardiac status stabilizes. D/W Dr. Shelton, RN, RT. 06/01/16 12:00 06/01/16 12:07 Subjective: Feels a bit better. Denies cough, dyspnea, CP. Feels quite weak Objective: Vital Signs Temp Pulse Resp BP Pulse Ox 36.9 C 73 20 149/77 H 94 06/01/16 07:17 06/01/16 10:00 06/01/16 10:00 06/01/16 10:00 06/01/16 10:00 Laboratory Results 06/01/16 04:43 05/31/16 06/01/16 06/02/16 05:59 05:59 05:59 Intake Total 5553 851 Output Total 2949 8207 350 Balance -2062 -1799 -350 PT 16.1 SEC (12.0-15.0) H 05/27/16 03:56 INR 1.29 (0.83-1.16) H 01/28/17 03:56 CXR: Improved bilateral infiltrates. Images reviewed ECG: New T-wave inversion V3 Physical Exam - Physical Exam General Appearance: alert, no apparent distress EENT: normal ENT inspection Neck: normal inspection Respiratory: crackles (bilateral) Cardiac/Chest: regular rate, rhythm, No edema Abdomen: normal bowel sounds, non-tender, soft Skin: normal color, warm/dry Extremities: normal inspection Neuro/Psych: alert, normal mood/affect, oriented x 3 ICD10 Worksheet Patient Problems: Problems Problem Status Diagnosed Pneumonia Acute Septic shock Acute
--- NOTE | 2016-06-01 12:09 | HOSPPROG ---
Hospitalist Progress Note Assessment/Plan: #SVT: HRs 200s last night. Resolved with adenosine. Start Metoprolol 12.5mg BID #Indeterminate troponin: 0.2-->0.18. In setting of SVT. No CP. TTE with global hypokinesis (05/27) Suspect due to shock. Consider ischemic eval once acute illness resolves #Multilobar PNA -Ertapenem Day 10/07 #Strep bacteremia: repeat bld cx negative 05/28 #Acute hypoxemic resp failure -improved to 2L today after lasix yesterday. #Acute encephalopathy: resolving. Multifactorial with infection, ICU -weaning off Precedex #Leukocytosis: resolved #Deconditioning: sitting in chair, PT/OT #Slurred speech: chronic per patient -pureed diet per SPL #Mildly decompensated systolic HF: normal EF 05/09. Now with mild global hypokinesis. -Lasix today #Septic shock: resolved Consider ischemic eval when clinically improved #Accelerated HTN -add Norvasc, BB #DVT ppx: lovenox #Diet: pureed diet with nectar thick #Disp: warrants inpt admission for PT/OT, IV abx Subjective: No chest pain. SOB improving Objective: Vital Signs Temp Pulse Resp BP Pulse Ox 36.9 C 73 20 149/77 H 94 06/01/16 07:17 06/01/16 10:00 06/01/16 10:00 06/01/16 10:00 06/01/16 10:00 Laboratory Results 06/01/16 04:43 05/31/16 06/01/16 06/02/16 05:59 05:59 05:59 Intake Total 2513 851 Output Total 4575 2650 350 Balance -2062 -1799 -350 PT 16.1 SEC (12.0-15.0) H 05/27/16 03:56 INR 1.29 (0.83-1.16) H 05/27/16 03:56 - Physical Exam Constitutional: cachectic Eyes: PERRL Ears, Nose, Mouth, Throat: poor dentition, dry mucous membranes Cardiovascular: regular rate and rhythym Respiratory: rhonchi (less rhonchi today) Gastrointestinal: normoactive bowel sounds, soft, non-tender abdomen Genitourinary: no bladder fullness Skin: warm Musculoskeletal: generalized weakness Neurologic: AAOx3 Psychiatric: interacting appropriately ICD10 Worksheet Patient Problems: Problems Problem Status Diagnosed Pneumonia Acute Septic shock Acute
[2016-06-01 12:13] LABS: ANION GAP 11 mEq/L (8-16); CALCIUM 8.2 mg/dL (8.5-10.4); CARBON DIOXIDE 25 mEq/l (22-31); CHLORIDE 109 mEq/L (97-110); CREATININE 0.7 mg/dL (0.7-1.3); GLOMERULAR FILTRATION RATE > 60; GLUCOSE 115 mg/dL (70-100); POTASSIUM 3.3 mEq/L (3.5-5.2); SODIUM 145 mEq/L (134-144)
[2016-06-01] MEDS ORDERED: PROTOCOL POTASSIUM 1 DOSE MISC PRN (12:19)
[2016-06-01 12:24] LABS: TROPONIN I 0.188 ng/mL (0-0.034)
[2016-06-01 18:45] LABS: POTASSIUM 3.5 mEq/L (3.5-5.2)
[2016-06-01] MEDS ORDERED: TEMAZEPAM 15 MG CAP PO PRN (20:28)
[2016-06-01] MEDS: guaiFENesin/CODEINE PHOS 10 ML UDCUP PO PRN (21:13)
[2016-06-02 05:46] LABS: HEMATOCRIT 34.7 % (40.0-51.0); HEMOGLOBIN 11.7 g/dL (13.7-17.5); MEAN CELL HEMOGLOBIN 30.5 pg (27.9-34.1); MEAN CELL HEMOGLOBIN CONCENTR. 33.7 g/dL (32.4-36.7); MEAN CELL VOLUME 90.4 fL (81.5-99.8); RED BLOOD CELL COUNT 3.84 10^6/uL (4.40-6.38); RED CELL DISTRIBUTION WIDTH 13.8 % (11.5-15.2)
[2016-06-02] MEDS: guaiFENesin/CODEINE PHOS 10 ML UDCUP PO PRN ×2 (06:28→21:38)
[2016-06-02 06:30] LABS: ANION GAP 8 mEq/L (8-16); CALCIUM 8.1 mg/dL (8.5-10.4); CARBON DIOXIDE 24 mEq/l (22-31); CHLORIDE 114 mEq/L (97-110); CREATININE 0.6 mg/dL (0.7-1.3); GLOMERULAR FILTRATION RATE > 60; GLUCOSE 133 mg/dL (70-100); POTASSIUM 3.8 mEq/L (3.5-5.2); SODIUM 146 mEq/L (134-144)
[2016-06-02] MEDS ORDERED: POTASSIUM CL 10 MEQ TAB PO ONE ×2 (07:44→21:23)
[2016-06-02] MEDS: ENOXAPARIN 40 MG/0.4 ML SYR SC SCH (08:45)
[2016-06-02] MEDS: ERTAPENEM 1 GM in NS 100 ML IV SCH (08:46)
[2016-06-02] MEDS: METOPROLOL TARTRATE 25 MG TAB PO SCH ×2 (08:46→21:27)
--- NOTE | 2016-06-02 10:14 | DX ---
Video Esophagram With Speech Therapy at 0824 hours History: Dysphagia, pneumonia. Technique: With the patient in the sitting lateral position, the speech therapist administered barium -coated puree, thick liquids, thin liquids, solid, and barium pill while video fluoroscopic monitorin g was performed. Fluoroscopy time: 1 minute. 1.9 mGy. Findings: No penetration or aspiration. No significant pooling in vallecula or piriform sinuses. No p haryngoesophageal strictures. Degenerative grade 1 anterolisthesis at C2-C3 with degenerative cervica l spine. Impression: 1. No aspiration. 2. Please see speech therapist report and recommendations.
--- NOTE | 2016-06-02 10:22 | HOSPPROG ---
Hospitalist Progress Note Assessment/Plan: #SVT: not recurrent. Resolved with adenosine. Metoprolol BID #Indeterminate troponin: 0.2-->0.18. In setting of SVT. No CP. TTE with global hypokinesis (05/27) Suspect due to shock. Consider ischemic eval once acute illness resolves #Multilobar PNA -Ertapenem Day 11/06 #Hyponatremia: 146, D5W #Strep bacteremia: repeat bld cx negative 05/28 #Acute hypoxemic resp failure -improving #Acute encephalopathy: resolving. Multifactorial with infection, ICU -weaning off Precedex #Leukocytosis: resolved #Deconditioning: walking the unit with PT #Slurred speech: passed swallow eval #Mildly decompensated systolic HF: normal EF 05/09. Now with mild global hypokinesis. #Septic shock: resolved Consider ischemic eval when clinically improved #Accelerated HTN -added Norvasc, BB #DVT ppx: lovenox #Diet: pureed diet with nectar thick #Disp: warrants inpt admission for PT/OT, IV abx Subjective: passed swallow eval, walking the unit Objective: Vital Signs Temp Pulse Resp BP Pulse Ox 36.9 C 76 17 168/80 H 96 06/02/16 07:53 06/02/16 07:53 06/02/16 07:53 06/02/16 07:53 06/02/16 07:53 Microbiology 05/28/16 04:00 Blood Culture - Final Blood 05/28/16 04:15 Blood Culture - Final Blood Laboratory Results 06/02/16 05:38 06/02/16 05:38 06/01/16 06/02/16 06/03/16 05:59 05:59 05:59 Intake Total 851 1100 Output Total 2650 500 Balance -1799 600 PT 16.1 SEC (12.0-15.0) H 05/27/16 03:56 INR 1.29 (0.83-1.16) H 05/27/16 03:56 - Physical Exam Constitutional: cachectic Eyes: PERRL Ears, Nose, Mouth, Throat: poor dentition, dry mucous membranes Cardiovascular: regular rate and rhythym Respiratory: rhonchi Gastrointestinal: normoactive bowel sounds, soft, non-tender abdomen Genitourinary: no bladder fullness Skin: warm ICD10 Worksheet Patient Problems: Problems Problem Status Diagnosed Pneumonia Acute Septic shock Acute
[2016-06-02] MEDS ORDERED: D5W 1,000 ML IV SCH (10:30)
[2016-06-02] MEDS ORDERED: IBUPROFEN 600 MG TAB PO PRN (15:44)
--- NOTE | 2016-06-02 15:54 | PDINTPN ---
[employer]atial [employer] Integrator Progress Note Assessment/Plan: Assessment: 60 yo homeless M with history of etoh recently admitted to [facility] with Strep PNA and bacteremia treated with PCN. He was re-admitted 05/25 with respiratory failure and required ETT and pressors. His CXR showed increasing infiltrates in a similar pattern as previous, and his blood cultures have grown Strep again. * S. Salivarius bateremia: / initial blood cultures positive. Frost-sensitive. Repeat Blood cultures negative. On Ertapenam. Likely oral source with pneumonia. Nothing suggests endocarditis. WBC high * PNA. Likely pathogen is Strep since in Bcx. * Septic shock / # 1- Resolved and off pressors * URMILA-Resolved. Still with hypernatremia. * Respiratory failure with hypoxia- Self extubated, oxygen needs and work of breathing improved * SVT: HR 215. Resolved with adenosine. Now in NSR. * Troponin- Bumped up again at time of SVT. New T-wave inversion V3. No Sx * Delerium: Likely due to ICU stay as well as critical illness. Doubt EtOH, as he's been hospitalized much of the last few weeks. Improving * HTN: Still elevated on Norvasc, metoprolol Plan: Continue D5, likely will not need for more than another 24 hours. Follow BMP. Continue ertapenam. Continue metoprolol and amlodipine, consider increased dose tomorrow if BP still elevated. Nebs PRN. Follow CXR. Can probably transfer to floor Will sign off, please call with questions. 06/02/16 15:53 06/02/16 15:55 Subjective: C/O knee pain. Denies dyspnea. Breathing getting stronger. Still with some cough. Objective: Vital Signs Temp Pulse Resp BP Pulse Ox 36.8 C 69 20 147/73 H 96 06/02/16 12:00 06/02/16 12:00 06/02/16 12:00 06/02/16 12:00 06/02/16 12:00 Microbiology 05/28/16 04:00 Blood Culture - Final Blood 05/28/16 04:15 Blood Culture - Final Blood Laboratory Results 06/02/16 05:38 06/02/16 05:38 06/01/16 06/02/16 06/03/16 05:59 05:59 05:59 Intake Total 851 1100 Output Total 2650 500 Balance -1799 600 PT 16.1 SEC (12.0-15.0) H 05/27/16 03:56 INR 1.29 (0.83-1.16) H 05/27/16 03:56 Videoswallow: Negative for aspiration Physical Exam - Physical Exam General Appearance: alert, no apparent distress EENT: normal ENT inspection Neck: normal inspection Respiratory: chest non-tender, rales Cardiac/Chest: regular rate, rhythm, No edema Abdomen: normal bowel sounds, non-tender, soft Skin: warm/dry Extremities: non-tender, normal inspection Neuro/Psych: alert, normal mood/affect, oriented x 3 ICD10 Worksheet Patient Problems: Problems Problem Status Diagnosed Pneumonia Acute Septic shock Acute
--- NOTE | 2016-06-02 17:02 | PCMIDPN ---
Assessment/Plan: Assessment: New left lower lobe pneumonia. Recent admission for Streptococcus pneumoniae pneumonia and bacteremia. Patient was managed for this initial illness with an outpatient Levaquin course after an initial inpatient management with beta lactam. Now with new Streptococcus salivarius in the blood. Also with Haemophilus influenzae in the sputum. Suspect that the Levaquin may have selected out for the Streptococcus salivarius. The patient therefore developed a secondary bacterial pneumonia with this new pathogen. Patient now feels better on ertapenem. Would change him to ceftriaxone given the permissive sensitivity panel. Plan: 1. Discontinue ertapenem. 2. Start ceftriaxone 1 g IV Q 24 hours 3. Follow clinical course. Subjective: Patient is resting in his hospital bed. He states he feels much better than he did yesterday. More energy. Appetite improving. Objective: Ertapenem # 5 Vital Signs Temp Pulse Resp BP Pulse Ox 36.8 C 69 20 147/73 H 96 06/02/16 12:00 06/02/16 12:00 06/02/16 12:00 06/02/16 12:00 06/02/16 12:00 Microbiology 05/28/16 04:00 Blood Culture - Final Blood 05/28/16 04:15 Blood Culture - Final Blood Laboratory Results 06/02/16 05:38 06/02/16 05:38 06/01/16 06/02/16 06/03/16 05:59 05:59 05:59 Intake Total 851 1100 Output Total 2650 500 Balance -1799 600 - Physical Exam General Appearance: WD/WN, alert, no apparent distress, non-toxic Respiratory: lungs clear, normal breath sounds, No respiratory distress Cardiac/Chest: regular rate, rhythm, No tachycardia Skin: normal color, warm/dry, No rash Neuro/Psych: alert, normal mood/affect, oriented x 3 ICD10 Worksheet Patient Problems: Problems Problem Status Diagnosed Pneumonia Acute Septic shock Acute
[2016-06-02 18:46] LABS: POTASSIUM 3.6 mEq/L (3.5-5.2)
[2016-06-02] MEDS ORDERED: POTASSIUM CL 10 MEQ TAB ONE (21:24)
[2016-06-03 06:20] LABS: HEMATOCRIT 36.6 % (40.0-51.0); HEMOGLOBIN 11.6 g/dL (13.7-17.5); MEAN CELL HEMOGLOBIN 28.8 pg (27.9-34.1); MEAN CELL HEMOGLOBIN CONCENTR. 31.7 g/dL (32.4-36.7); MEAN CELL VOLUME 90.8 fL (81.5-99.8); RED BLOOD CELL COUNT 4.03 10^6/uL (4.40-6.38); RED CELL DISTRIBUTION WIDTH 13.4 % (11.5-15.2)
[2016-06-03 06:43] LABS: ANION GAP 9 mEq/L (8-16); CALCIUM 8.1 mg/dL (8.5-10.4); CARBON DIOXIDE 23 mEq/l (22-31); CHLORIDE 113 mEq/L (97-110); CREATININE 0.6 mg/dL (0.7-1.3); GLOMERULAR FILTRATION RATE > 60; GLUCOSE 95 mg/dL (70-100); POTASSIUM 4.4 mEq/L (3.5-5.2); SODIUM 145 mEq/L (134-144)
[2016-06-03] MEDS: ENOXAPARIN 40 MG/0.4 ML SYR SC SCH (08:15)
[2016-06-03] MEDS: NAPROXEN SODIUM 220 MG TAB PO PRN (08:15)
[2016-06-03] MEDS: METOPROLOL TARTRATE 25 MG TAB PO SCH ×2 (08:16→20:43)
[2016-06-03] MEDS: guaiFENesin/CODEINE PHOS 10 ML UDCUP PO PRN (08:33)
[2016-06-03] MEDS ORDERED: ALBUTEROL 60 PUFFS/8 GM MDI IH PRN (10:07)
[2016-06-03] MEDS ORDERED: PNEUMOCOCCAL 0.5ML VACCINE VIAL IM ONE (10:45)
--- NOTE | 2016-06-03 11:53 | HOSPPROG ---
Hospitalist Progress Note Assessment/Plan: #Recent strep pneumoniae PNA/bacteremia: was treated with Levaquin. #Strep salivarius bacteremia: changed to CTX 06/03. Appreciate ID input #SVT: not recurrent. Resolved with adenosine. Metoprolol BID #Indeterminate troponin: 0.2-->0.18. In setting of SVT. No CP. TTE with global hypokinesis (05/27) Suspect due to shock. Consider ischemic eval once acute illness resolves #Multilobar PNA: was treated 7 days abx #Hyponatremia: cont D5W #Acute hypoxemic resp failure: resolved #Acute encephalopathy: resolved. Was multifactorial with infection, hypoxia #Leukocytosis: resolved #Deconditioning: walking the unit with PT #Slurred speech: passed swallow eval #Mildly decompensated systolic HF: normal EF 05/09. Now with mild global hypokinesis. #Septic shock: resolved Consider ischemic eval when clinically improved #Accelerated HTN -increase Norvasc today, cont BB #DVT ppx: lovenox #Diet: pureed diet with nectar thick #Disp: warrants inpt admission for PT/OT, IV abx Subjective: walking the unit. SOB improving Objective: Vital Signs Temp Pulse Resp BP Pulse Ox 37.0 C 72 16 144/72 H 90 L 06/03/16 10:01 06/03/16 10:01 06/03/16 10:01 06/03/16 10:01 06/03/16 10:01 Microbiology 05/28/16 04:00 Blood Culture - Final Blood 05/28/16 04:15 Blood Culture - Final Blood Laboratory Results 06/03/16 06:05 06/03/16 06:05 06/02/16 06/03/16 06/04/16 05:59 05:59 05:59 Intake Total 1100 120 Output Total 500 525 Balance 600 -405 PT 16.1 SEC (12.0-15.0) H 05/27/16 03:56 INR 1.29 (0.83-1.16) H 05/27/16 03:56 - Physical Exam Constitutional: chronically ill appearing, cachectic Eyes: PERRL Ears, Nose, Mouth, Throat: moist mucous membranes, poor dentition Cardiovascular: regular rate and rhythym, no murmur, rub, or gallop Respiratory: no respiratory distress, rhonchi Gastrointestinal: normoactive bowel sounds Genitourinary: no bladder fullness Skin: warm Musculoskeletal: full muscle strength Neurologic: AAOx3, CN II-XII Intact ICD10 Worksheet Patient Problems: Problems Problem Status Diagnosed Pneumonia Acute Septic shock Acute
--- NOTE | 2016-06-03 16:03 | PCMIDPN ---
Assessment/Plan: Assessment: New left lower lobe pneumonia. Recent admission for Streptococcus pneumoniae pneumonia and bacteremia. Patient was managed for this initial illness with an outpatient Levaquin course after an initial inpatient management with beta lactam. Now with new Streptococcus salivarius in the blood. Also with Haemophilus influenzae in the sputum. Patient continues to look better on IV ceftriaxone. He will be a risk for leaving AMA as he has already voiced that desire. Convinced him to stay another couple of days for IV treatment. Plan: 1. Continue ceftriaxone 1 g IV Q 24 hours 2. Follow clinical course. 06/03/16 16:01 Subjective: Patient is doing well. He states he feels wiped out and exhausted. No fevers or chills. Tolerating ceftriaxone without issue. Objective: Ceftriaxone #2 Vital Signs Temp Pulse Resp BP Pulse Ox 37.0 C 72 16 157/86 H 90 L 06/03/16 10:01 06/03/16 10:01 06/03/16 10:01 06/03/16 12:00 06/03/16 10:01 Laboratory Results 06/03/16 06:05 06/03/16 06:05 06/02/16 06/03/16 06/04/16 05:59 05:59 05:59 Intake Total 1100 120 Output Total 500 525 Balance 600 -405 - Physical Exam General Appearance: WD/WN, alert, no apparent distress, non-toxic Respiratory: crackles, No lungs clear, No normal breath sounds Cardiac/Chest: regular rate, rhythm, No tachycardia Skin: normal color, warm/dry, No rash Neuro/Psych: alert, normal mood/affect, oriented x 3 ICD10 Worksheet Patient Problems: Problems Problem Status Diagnosed Pneumonia Acute Septic shock Acute
[2016-06-04 05:57] LABS: ANION GAP 8 mEq/L (8-16); CALCIUM 8.1 mg/dL (8.5-10.4); CARBON DIOXIDE 24 mEq/l (22-31); CHLORIDE 112 mEq/L (97-110); CREATININE 0.7 mg/dL (0.7-1.3); GLOMERULAR FILTRATION RATE > 60; GLUCOSE 95 mg/dL (70-100); POTASSIUM 4.1 mEq/L (3.5-5.2); SODIUM 144 mEq/L (134-144)
[2016-06-04] MEDS: METOPROLOL TARTRATE 25 MG TAB PO SCH ×2 (08:09→21:01)
[2016-06-04] MEDS: ENOXAPARIN 40 MG/0.4 ML SYR SC SCH (09:39)
--- NOTE | 2016-06-04 14:28 | HOSPPROG ---
Hospitalist Progress Note Assessment/Plan: 60-year-old homeless man with a history of alcoholism, recently admitted with respiratory failure from pneumococcal pneumonia complicated by bacteremia he was discharged on Levaquin. He returned with multi lobar pneumonia and respiratory failure with likely pathogen strep salivarius. He has been followed closely by Infectious Disease. # multi lobar pneumonia with strep salivarius bacteremia complicated by severe sepsis and hypoxic respiratory failure on admission. * Day 9 of antibiotics including 3 days of Zosyn, 3 days of Invanz and currently on ceftriaxone. * Finished IV antibiotic therapy here in the hospital with tentative discharge date June 07 * Patient hemodynamically stable will DC telemetry # COPD with ongoing tobacco use. Discussed tobacco cessation with patient he is willing to try to stop he has been smoking 52 years * Nicotine patch * Smoking cessation counseling * Nebulizers as needed * Good oxygenation # indeterminate troponin in the setting of SVT and global hypokinesis on echocardiogram. Suspect all of this is secondary to septic shock will not pursue ischemic workup at this time. If he has chest pain or clinical symptoms can do ischemic workup at that time # SVT resolved with adenosine currently on metoprolol, continue same # acute encephalopathy, resolved # deconditioning: Patient with severe illnesses over several weeks. Will discuss with case management regarding possible rehab at the time of discharge. # hypertension currently continue Norvasc and Toprol will follow Subjective: Patient new to me, chart reviewed. Has some back pain but no shortness of breath or chest pain Objective: Vital Signs Temp Pulse Resp BP Pulse Ox 36.4 C 74 15 145/84 H 95 06/04/16 11:30 06/04/16 11:30 06/04/16 11:30 06/04/16 11:30 06/04/16 11:30 Laboratory Results 06/03/16 06:05 06/04/16 05:05 06/03/16 06/04/16 06/05/16 05:59 05:59 05:59 Intake Total 120 780 Output Total 525 Balance -405 780 PT 16.1 SEC (12.0-15.0) H 05/27/16 03:56 INR 1.29 (0.83-1.16) H 05/27/16 03:56 - Physical Exam Constitutional: chronically ill appearing, uncomfortable, other (Been) Eyes: PERRL, anicteric sclera, EOMI Ears, Nose, Mouth, Throat: moist mucous membranes, hearing normal Cardiovascular: regular rate and rhythym, systolic murmur Respiratory: no respiratory distress, reduced air movement (Base), inspiratory crackles (Bases), bronchial breath sounds, No expiratory wheeze Gastrointestinal: normoactive bowel sounds, soft, non-tender abdomen, no palpable masses Genitourinary: no bladder fullness Skin: warm, normal color Musculoskeletal: no joint effusions Neurologic: AAOx3 Psychiatric: interacting appropriately, not anxious, not encephalopathic ICD10 Worksheet Patient Problems: Problems Problem Status Diagnosed Pneumonia Acute Septic shock Acute
[2016-06-04] MEDS: NICOTINE 14 MG/24 HR PATCH TD SCH (14:31)
--- NOTE | 2016-06-04 16:22 | PCMIDPN ---
Assessment/Plan: Assessment: Streptococcus salivarius bacteremia new pneumonia. Patient continues to look better on IV ceftriaxone. He will be a risk for leaving AMA as he has already voiced that desire. Would preferably like to keep this patient for 2 weeks status post blood culture clearance on IV ceftriaxone. He is no growth to date from 05/28/2016. This puts his stop date at 06/11/2016. Plan: 1. Continue ceftriaxone 1 g IV Q 24 hours 2. Follow clinical course. Subjective: Patient is resting comfortably in his hospital room. He is having no complaints today. Has a bit more energy than he did yesterday. Objective: Ceftriaxone # 3 Vital Signs Temp Pulse Resp BP Pulse Ox 36.6 C 71 16 113/58 L 80 L 06/04/16 15:52 06/04/16 15:52 06/04/16 15:52 06/04/16 15:52 06/04/16 15:52 Laboratory Results 06/03/16 06:05 06/04/16 05:05 06/03/16 06/04/16 06/05/16 05:59 05:59 05:59 Intake Total 120 780 Output Total 525 Balance -405 780 - Physical Exam General Appearance: WD/WN, alert, no apparent distress, non-toxic Respiratory: lungs clear, normal breath sounds, No respiratory distress Cardiac/Chest: regular rate, rhythm, No tachycardia Skin: normal color, warm/dry, No rash Neuro/Psych: alert, normal mood/affect, oriented x 3 ICD10 Worksheet Patient Problems: Problems Problem Status Diagnosed Pneumonia Acute Septic shock Acute
[2016-06-04 19:39] VITALS: RESP 18
[2016-06-05 06:27] LABS: ANION GAP 7 mEq/L (8-16); CALCIUM 8.4 mg/dL (8.5-10.4); CARBON DIOXIDE 21 mEq/l (22-31); CHLORIDE 114 mEq/L (97-110); CREATININE 0.7 mg/dL (0.7-1.3); GLOMERULAR FILTRATION RATE > 60; GLUCOSE 84 mg/dL (70-100); POTASSIUM 4.6 mEq/L (3.5-5.2); SODIUM 142 mEq/L (134-144)
[2016-06-05] MEDS: NICOTINE 14 MG/24 HR PATCH TD SCH (08:57)
[2016-06-05] MEDS ORDERED: NICOTINE 14 MG/24 HR PATCH TD SCH (09:00)
--- NOTE | 2016-06-05 09:02 | HOSPPROG ---
Hospitalist Progress Note Assessment/Plan: 60-year-old homeless man with a history of alcoholism, recently admitted with respiratory failure from pneumococcal pneumonia complicated by bacteremia he was discharged on Levaquin. He returned with multi lobar pneumonia and respiratory failure with likely pathogen strep salivarius. He has been followed closely by Infectious Disease. # multi lobar pneumonia with strep salivarius bacteremia complicated by severe sepsis and hypoxic respiratory failure on admission. * Day 9 of antibiotics including 3 days of Zosyn, 3 days of Invanz and currently on ceftriaxone. * Finished IV antibiotic therapy here in the hospital with tentative discharge date June 07 * Patient hemodynamically stable will DC telemetry # COPD with ongoing tobacco use. Discussed tobacco cessation with patient he is willing to try to stop he has been smoking 52 years * Nicotine patch * Smoking cessation counseling * Nebulizers as needed * Good oxygenation # indeterminate troponin in the setting of SVT and global hypokinesis on echocardiogram. Suspect all of this is secondary to septic shock will not pursue ischemic workup at this time. If he has chest pain or clinical symptoms can do ischemic workup at that time # SVT resolved with adenosine currently on metoprolol, continue same # acute encephalopathy, resolved # deconditioning: Patient with severe illnesses over several weeks. Will discuss with case management regarding possible rehab at the time of discharge. # hypertension currently continue Norvasc and Toprol will follow Subjective: Sleepy, has no new complaints today. Would like to go home to his apartment when he is finished with his antibiotics Objective: Vital Signs Temp Pulse Resp BP Pulse Ox 36.6 C 63 18 117/61 96 06/05/16 04:00 06/05/16 04:00 06/05/16 04:00 06/05/16 04:00 06/05/16 04:00 Laboratory Results 06/03/16 06:05 06/05/16 05:37 06/04/16 06/05/16 06/06/16 05:59 05:59 05:59 Intake Total 780 Output Total 500 Balance 780 -500 PT 16.1 SEC (12.0-15.0) H 05/27/16 03:56 INR 1.29 (0.83-1.16) H 05/27/16 03:56 - Physical Exam Constitutional: no apparent distress Cardiovascular: regular rate and rhythym Respiratory: no respiratory distress, reduced air movement Psychiatric: interacting appropriately, not anxious ICD10 Worksheet Patient Problems: Problems Problem Status Diagnosed Pneumonia Acute Septic shock Acute
[2016-06-05 09:06] VITALS: BP 138/80; PULSE 76; TEMP 97.3; O2SAT 88
[2016-06-05] MEDS: METOPROLOL TARTRATE 25 MG TAB PO SCH (09:08)
[2016-06-05] MEDS: ENOXAPARIN 40 MG/0.4 ML SYR SC SCH (09:10)
[2016-06-05] MEDS: NAPROXEN SODIUM 220 MG TAB PO PRN (09:22)
--- NOTE | 2016-06-05 11:56 | PCMIDPN ---
Assessment/Plan: Assessment/Plan: * Multilobar pneumonia/S. salivarius bacteremia: Patient adamant about leaving AMA today. Unwilling to listen to concerns about his decision and risk associated with truncated antibiotic course. Could utilize additional 5 days of Augmentin given his decision to leave AMA. 06/05/16 11:55 06/05/16 13:32 Objective: Vital Signs Temp Pulse Resp BP Pulse Ox 36.3 C 76 18 138/80 H 88 L 06/05/16 09:02 06/05/16 09:02 06/05/16 09:02 06/05/16 09:02 06/05/16 09:02 Laboratory Results 06/03/16 06:05 06/05/16 05:37 06/04/16 06/05/16 06/06/16 05:59 05:59 05:59 Intake Total 780 Output Total 500 Balance 780 -500 ICD10 Worksheet Patient Problems: Problems Problem Status Diagnosed Pneumonia Acute Septic shock Acute
--- NOTE | 2016-06-05 15:37 | GDS ---
[f rep st] DISCHARGE SUMMARY DIAGNOSES: 1. Recurrent multilobar pneumonia with Streptococcus salivarius bacteremia, complicated by severe se psis and hypoxic respiratory failure on admission, status post 9 days of intravenous antibiotics post clearance of his blood cultures however, patient wants to leave against medical advice prior to fini shing his intravenous antibiotics. 2. Chronic obstructive pulmonary disease with ongoing tobacco use. 3. Supraventricular tachycardia with indeterminate troponin. Will discharge on Toprol-XL. He has h ad no recurrent symptoms. I suspect this is likely secondary to his acute illness and he may never h ave a recurrence. 4. Acute encephalopathy, resolved. 5. Deconditioning, improving. Patient still needs assistance with cane. 6. Hypertension, discharged on Toprol. He will resume his hydrochlorothiazide. PROCEDURES DONE: Echocardiogram, video fluoroscopic swallow. CONSULTATIONS: Infectious Disease, critical Care. HOSPITAL COURSE: The patient is a 60-year-old man who had been homeless with a history of COPD, who was recently admitted to the hospital with strep pneumonia bacteremia. He was discharged on Levaquin [facility] He said he got sick once he was in the [facility] and came back quite ill to this facility on 05/26/2016. At that time, he was diagnosed with sepsis and pneumonia. Blood cul tures eventually grew out Strep salivarius. Repeat blood cultures promptly became negative, and he w as treated with 9 days of IV ceftriaxone in the hospital post clearance of his blood cultures. The p edwar was to keep him in the hospital to complete 10-14 days of IV antibiotics however, the patient bec jose luis quite agitated and wanted to leave AMA on the day of discharge. He does understand the risks and benefits of leaving AMA regarding IV antibiotic therapy and recurrent pneumonia however, he plans on leaving. CONDITION ON DISCHARGE: Fair. He has been afebrile. He does not require any supplemental oxygen an d his exam has been improving daily. He is ambulating safely with the use of a cane. DISCHARGE MEDICATIONS: Please see discharge medication form. FOLLOWUP: He needs to follow up with his PCP. He was given 5 days of Augmentin to complete 14 days total of antibiotics post clearance of his blood cultures. Given his SVT, he was started on Toprol-X L, as well as hydrochlorothiazide to assist with his blood pressure control. He does need to follow up with his primary care provider for repeat blood pressure checks, as well as pneumonia checks. Morena mayorga was told this on the day of discharge. He signed out AMA. Total time spent today on the day of discharge with patient and coordination of care is 35 minutes. /[id number]/MODL
== END 2016-06-05 16:23 | disposition left against medical advice (07) | DRG 871 ==
LOC: EDUNIT# → F2N 09:33 → F3E 06-03 18:02
PROVIDERS: ADMIT Internal Medicine; ATTEND Internal Medicine
PROC: 0BH18EZ Insertion of Endotracheal Airway into Trachea, Via Natural or Artificial Opening Endoscopic (ICD-10-PCS; principal; 2016-05-26)
PROC: 5A09458 Assistance with Respiratory Ventilation, 24-96 Consecutive Hours, Intermittent Positive Airway Pressure (ICD-10-PCS; principal; 2016-05-26)
PROC: 02HV33Z Insertion of Infusion Device into Superior Vena Cava, Percutaneous Approach (ICD-10-PCS; principal; 2016-05-26)
DX: A40.8 Other streptococcal sepsis (principal); R65.21 Severe sepsis with septic shock; J15.4 Pneumonia due to other streptococci; J14 Pneumonia due to Hemophilus influenzae; J96.01 Acute respiratory failure with hypoxia; N17.9 Acute kidney failure, unspecified; J44.9 Chronic obstructive pulmonary disease, unspecified; G93.41 Metabolic encephalopathy; F05 Delirium due to known physiological condition; I47.1 Supraventricular tachycardia; I27.2 Other secondary pulmonary hypertension; I10 Essential (primary) hypertension; M54.9 Dorsalgia, unspecified; F17.210 Nicotine dependence, cigarettes, uncomplicated; E87.5 Hyperkalemia; K08.9 Disorder of teeth and supporting structures, unspecified; Z91.128 Patient's intentional underdosing of medication regimen for other reason; Z96.651 Presence of right artificial knee joint; Z59.0 Homelessness
CPT/HCPCS: 82947-QW; 92526-GN; 92610-GN; 92611-GN; 97116-GP; 97161-GP; 97166-GO; 97530-GO; 97530-GP; 97535-GO; J0153; J0330; J0360; J0696; J1265; J1335; J1650; J1815; J2370; J2543; J2704; J3370

== ENCOUNTER 2016-06-22 10:26 | Emergency (ER) | payer MEDICAID ==
[2016-06-22 10:39] VITALS: RESP 18
[2016-06-22 12:00] LABS: % IMMATURE GRANULYOCYTES 0.5 % (0.0-1.1); ABSOLUTE IMMATURE GRANULOCYTES 0.04 10^3/uL (0.00-0.10); ADD DIFF? NO; ADD MORPH? NO; ADD SCAN? NO; ATYPICAL LYMPHOCYTE FLAG 10 (0-99); FRAGMENT RBC FLAG 10 (0-99); HEMATOCRIT 39.3 % (40.0-51.0); HEMOGLOBIN 12.3 g/dL (13.7-17.5); LEFT SHIFT FLG 0 (0-99); LIPEMIA HEMOLYSIS FLAG 80 (0-99); MEAN CELL HEMOGLOBIN CONCENTR. 31.3 g/dL (32.4-36.7); MEAN CELL VOLUME 92.7 fL (81.5-99.8); MEAN PLATELET VOLUME 9.7 fL (8.7-11.7); PLATELET CLUMPS FLAG 30 (0-99); PLATELET COUNT 546 10^3/uL (150-400); RED BLOOD CELL COUNT 4.24 10^6/uL (4.40-6.38); RED CELL DISTRIBUTION WIDTH 14.6 % (11.5-15.2)
--- NOTE | 2016-06-22 12:08 | EDPHY ---
H & P Stated Complaint: BILAT ANKLE SWELLING 6 DAYS R WORSE THAN LEFT, HPI/ROS: CHIEF COMPLAINT: lower extremity edema and pain HISTORY OF PRESENT ILLNESS: reports 3-5 days of right lower extremity swelling and pain. Gradual onset. Constant duration. Worse with palpation and ambulation. No improvement with rest or elevation. No chest pain or shortness of breath. No fever or chills. No history of DVT. There is some swelling of the left lower extremity that is significantly less. No predictable modifying factors for this. Patient is homeless and sleeps in a van. He has no recent risk factors for venous thrombolic event. No other associated complaints or modifying factors. REVIEW OF SYSTEMS: Ten systems reviewed and are negative unless otherwise noted in the HPI EXAMINATION General Appearance: Alert, no distress , unkempt Head: normocephalic, atraumatic Eyes: Pupils equal and round, no conjunctival pallor or injection ENT, Mouth: Mucous membranes moist. Uvula midline. No erythema or edema. Neck: Normal inspection, supple, non-tender Respiratory: Lungs are clear to auscultation . No wheezing, rhonchi or crackles. No distress. Cardiovascular: Regular rate and rhythm . No murmur. Pulses intact distally. DP and PT pulses are symmetric at 1+. Gastrointestinal: Abdomen is soft and nontender Back: lumbar scoliotic appearance. No bony tenderness. No crepitus or deformity. Neurological: A&O, nonfocal, Strength is 5/5 in all limbs. Skin: Warm and dry, no rash . Superficial abrasion over the right anterior paredes that has scabbed. No fluctuance. No induration. No purulence. Extremities: Tenderness and significant 3+ pedal edema to the right lower extremity below the knee. Minimal edema to the left lower extremity. Range of motion is fully intact in both legs. There is abnormal appearance of the left knee that is chronic per patient due to a previous orthopedic injury. Range of motion intact. Neurovascular intact distal to the pain and edema. Psychiatric: Mood and affect normal DIFFERENTIAL DIAGNOSES: Including but not limited to Peripheral edema, DVT, venous stasis, PVD, hypertension, hypoalbuminemia, electrolyte disturbance MDM: Lower extremity edema, right greater than left. I do not appreciate much edema on the left lower extremity at all. The right lower extremity is quite edematous. There is no erythema. There is palpable DP and PT pulsations, although his feet are cold from sleeping outside in a van, I do not appreciate any decrease evidence of flow. No evidence of DVT by examination alone, but he does have unilateral edema thus I did order an ultrasound to rule out DVT. No shortness of breath vital signs are otherwise stable. 12:20 p.m. radiologist contacted me regarding the chest x-ray. He says there is a mild perihilar area that is potentially residual pneumonia versus less likely a mass. He recommends the patient receive a follow-up two view chest x-ray in 4- 6 weeks. If this is unchanged at that time, he would recommend a CT scan of the chest. Does not recommend a CT scan of the chest emergently at this time for this finding. 12:45 p.m. I revisited the patient and discussed his labs, chest x-ray and ultrasound findings. I discussed the reading of the chest x-ray and the recommendation of the radiologist that he have a repeat chest x-ray in 4 weeks. The patient understands this and will follow up with [facility]. I did offer to have the case management nurse visit with him to help with disposition, but he declined. Was asking to be discharged home. I do feel he was stable to do so as his symptoms have been present for several days and he has no acute findings that are concerning on today's workup. He is discharged home in stable condition with instructions to follow up with [facility] and discussed a cardiology follow-up. I informed her that I would like him to return to the emergency department immediately for any chest pain or any shortness of breath. SUPERVISION: This patient was independently evaluated without the aide of supervising physician. Source: Patient Exam Limitations: No limitations - Personal History Current Tetanus/Diphtheria Vaccine: Unsure Current Tetanus Diphtheria and Acellular Pertussis (TDAP): Unsure - Medical/Surgical History Hx Asthma: No Hx Chronic Respiratory Disease: No Hx Diabetes: No Hx Cardiac Disease: No Hx Renal Disease: No Hx Cirrhosis: No Hx Alcoholism: No Hx HIV/AIDS: No Hx Splenectomy or Spleen Trauma: No Other PMH: HTN, Rt TKA, Lt patella surgery,PNEUMONIA JUN 16 - Social History Smoking Status: Current every day smoker Constitutional: Initial Vital Signs Temperature (C) 97.3 F 06/22/16 10:31 Heart Rate 52 L 06/22/16 10:31 Respiratory Rate 18 06/22/16 10:31 Blood Pressure 186/63 H 06/22/16 10:31 O2 Sat (%) 98 06/22/16 10:31 O2 Delivery Mode Room Air Allergies/Adverse Reactions: No Known Allergies Allergy (Unverified 06/22/16 10:38) Home Medications: Medication Instructions Recorded Hydrochlorothiazide [HCTZ (*)] 25 mg PO DAILY 06/02/16 Amoxicillin/Clavulanate Pot 875 mg PO BID #10 tab 06/05/16 [Augmentin 875 MG TAB (*)] Metoprolol Succinate Xr [Toprol Xl 25 mg PO DAILY #30 tab.sr 06/05/16 25 mg (*)] Medical Decision Making - Data Points Laboratory Results: Laboratory Results 06/22/16 11:50 06/22/16 11:50 06/22/16 06/22/16 06/22/16 11:50 11:50 11:50 WBC 7.56 10^3/uL 10^3/uL (3.80-9.50) RBC 4.24 10^6/uL L 10^6/uL (4.40-6.38) Hgb 12.3 g/dL L g/dL (13.7-17.5) Hct 39.3 % L % (40.0-51.0) MCV 92.7 fL fL (81.5-99.8) MCH 29.0 pg pg (27.9-34.1) MCHC 31.3 g/dL L g/dL (32.4-36.7) RDW 14.6 % % (11.5-15.2) Plt Count 546 10^3/uL H 10^3/uL (150-400) MPV 9.7 fL fL (8.7-11.7) Neut % (Auto) 60.7 % % (39.3-74.2) Lymph % (Auto) 28.2 % % (15.0-45.0) Milam % (Auto) 7.3 % % (4.5-13.0) Eos % (Auto) 2.4 % % (0.6-7.6) Baso % (Auto) 0.9 % % (0.3-1.7) Nucleat RBC Rel Count 0.0 % % (0.0-0.2) Absolute Neuts (auto) 4.59 10^3/uL 10^3/uL (1.70-6.50) Absolute Lymphs (auto) 2.13 10^3/uL 10^3/uL (1.00-3.00) Absolute Monos (auto) 0.55 10^3/uL 10^3/uL (0.30-0.80) Absolute Eos (auto) 0.18 10^3/uL 10^3/uL (0.03-0.40) Absolute Basos (auto) 0.07 10^3/uL 10^3/uL (0.02-0.10) Absolute Nucleated RBC 0.00 10^3/uL 10^3/uL (0-0.01) Immature Gran % 0.5 % % (0.0-1.1) Immature Gran # 0.04 10^3/uL 10^3/uL (0.00-0.10) PT 12.6 SEC SEC (12.0-15.0) INR 0.95 (0.83-1.16) APTT 22.3 SEC L SEC (23.0-38.0) Sodium 141 mEq/L mEq/L (134-144) Potassium 4.3 mEq/L mEq/L (3.5-5.2) Chloride 108 mEq/L mEq/L (97-110) Carbon Dioxide 24 mEq/l mEq/l (22-31) Anion Gap 9 mEq/L mEq/L (8-16) BUN 13 mg/dL mg/dL (7-23) Creatinine 0.7 mg/dL mg/dL (0.7-1.3) Estimated GFR > 60 Glucose 76 mg/dL mg/dL (70-100) Calcium 9.0 mg/dL mg/dL (8.5-10.4) Total Bilirubin 0.6 mg/dL mg/dL (0.1-1.4) Conjugated Bilirubin 0.6 mg/dL H mg/dL (0.0-0.5) Unconjugated Bilirubin 0.0 mg/dL mg/dL (0.0-1.1) AST 24 IU/L IU/L (17-59) ALT 28 IU/L IU/L (21-72) Alkaline Phosphatase 112 IU/L IU/L (38-126) Troponin I < 0.012 ng/mL ng/mL (0-0.034) NT-Pro-B Natriuret Pep 540 pg/mL H pg/mL (0-125) Total Protein 6.5 g/dL g/dL (6.3-8.2) Albumin 3.2 g/dL L g/dL (3.5-5.0) Lipase 278.0 IU/L IU/L (23-300) Departure - Departure Disposition: Home, Routine, Self-Care Clinical Impression: Peripheral edema, Abnormal finding on chest xray Condition: Good Instructions: Edema (ED) Additional Instructions: Follow up with [facility] to discuss Cardiology follow-up for the edema also follow-up in 4-6 weeks with [facility] for repeat two view chest x- ray given the findings on today's chest x-ray that we discussed. Return sooner for any chest pain of any kind or shortness of breath Referrals: [facility] [Other] - As per Instructions [facility],. [Clinic] - As per Instructions
[2016-06-22 12:11] LABS: APTT 22.3 SEC (23.0-38.0); INR 0.95 (0.83-1.16); PROTIME(PATIENT) 12.6 SEC (12.0-15.0)
[2016-06-22 12:18] LABS: ALANINE AMINOTRANSFERASE 28 IU/L (21-72); ALBUMIN 3.2 g/dL (3.5-5.0); ALKALINE PHOSPHATASE 112 IU/L (38-126); ANION GAP 9 mEq/L (8-16); ASPARTATE AMINOTRANSFERASE 24 IU/L (17-59); BILIRUBIN,TOTAL 0.6 mg/dL (0.1-1.4); BILIRUBIN-CONJUGATED 0.6 mg/dL (0.0-0.5); CARBON DIOXIDE 24 mEq/l (22-31); CHLORIDE 108 mEq/L (97-110); CREATININE 0.7 mg/dL (0.7-1.3); GLOMERULAR FILTRATION RATE > 60; GLUCOSE 76 mg/dL (70-100); POTASSIUM 4.3 mEq/L (3.5-5.2); SODIUM 141 mEq/L (134-144); TOTAL PROTEIN 6.5 g/dL (6.3-8.2)
[2016-06-22 12:30] LABS: TROPONIN I < 0.012 ng/mL (0-0.034)
[2016-06-22 13:27] VITALS: BP 171/80; PULSE 65; TEMP 97.9; O2SAT 95
== END 2016-06-22 13:27 | disposition home or self-care (01) ==
DX: R60.9 Edema, unspecified (principal); R93.1 Abnormal findings on diagnostic imaging of heart and coronary circulation; I10 Essential (primary) hypertension; F17.200 Nicotine dependence, unspecified, uncomplicated